=== PATIENT | male | born 1950 | race Caucasian/White ===

== ENCOUNTER 2017-04-06 12:57 | Observation (INO) | payer BC, MEDICARE, OTHER ==
[2017-04-06 13:36] LABS: ABS Basophils 0 10^3/ul (0-0.2); ABS Eosinophils 0.3 10^3/ul (0-0.6); ABS Lymphocytes 1.7 10^3/ul (1.0-4.8); ABS Monocytes 0.5 10^3/ul (0-0.8); ABS Neutrophils 4.5 10^3/ul (1.5-7.7); ABS Nucleated RBC 0 10^3/ul; Eosinophil % 4.7 % (0-6); Hematocrit 44 % (42-52); Hemoglobin 14.8 g/dl (14.0-18.0); Lymphocyte % 23.9 % (25-47); Mean Corpuscular HGB Conc 34 g/dl (31-36); Mean Corpuscular Hemoglobin 33 pg (27-31); Mean Corpuscular Volume 98 fL (80-94); Mean Platelet Volume 8 um3 (7.4-10.4); Nucleated Red Blood Cells % 0; Platelet Count 200 10^3/ul (150-450); Red Blood Count 4.46 10^6/ul (4.0-5.4); Red Cell Distribution Width 14 % (10.5-15); White Blood Count 7.1 10^3/ul (3.5-10.8)
[2017-04-06 13:50] LABS: EGFR Non-African American 60.8 (>60)
--- NOTE | 2017-04-06 17:28 | RAD ---
INDICATION: Short of breath COMPARISON: March 22, 2015 TECHNIQUE: PA and lateral dual-energy views were obtained. FINDINGS: Bones/Soft Tissues: There are no acute bony findings. Cardiomediastinal: The cardiomediastinal silhouette is normal. Lungs: There are no infiltrates. Pleura: There are no pleural effusions. Other: None IMPRESSION: NO ACTIVE DISEASE.
[2017-04-06] MEDS ORDERED: Aspirin Low Dose CHEW TAB* 81 MG PO ONE (17:39)
[2017-04-06] MEDS ORDERED: Ondansetron INJ* 2 MG/ML VIAL IV PRN (18:04)
[2017-04-06] MEDS ORDERED: Acetaminophen TAB* 325 MG PO PRN (18:04)
[2017-04-06] MEDS ORDERED: Albuterol 2.5 MG/3 ML NEB.SOL* (0.083%) INH PRN (18:04)
[2017-04-06] MEDS ORDERED: Albuterol HFA INHALER* 8 gm MDI INH PRN (18:07)
[2017-04-06] MEDS ORDERED: Fluticasone NASAL SPRAY 50MCG* 16 gm SPRAY BTL BOTH NARES PRN (18:09)
[2017-04-06] MEDS ORDERED: LORazepam TAB(*) 1 MG PO SCH (19:00)
--- NOTE | 2017-04-06 21:53 | ED ---
Demarcus Juarez Tiffany, scribed for Sintia Felix MD on 04/06/17 at 1650 . HPI Chest Pain - HPI Summary HPI Summary: The patient is a 66 year old M presenting to [facility] with a chief complaint of intermittent chest pain since 09:00 today. Describes pain as sharp and located in the left chest. Rates the pain 1/10 in severity. Symptoms aggravated by nothing. Symptoms alleviated by rest. Patient reports shortness of breath. The chest pain began last night. Described pain as pressure and located in the right chest. Patient felt chest pain again this morning after waking up. Spencer anxious throughout the day, like he was in a hurry and he was worried about being late to his physical therapy appointment. PT advised patient to see Dr. Gerber, patients restaurant expeditor, who was not working today. Patient presented to ED instead. The patient has had sinus infection/upper respiratory for past six weeks. History of upper respiratory infections. Has had sinus surgery. - History of Current Complaint Chief Complaint: EDChestPainROMI Time Seen by Provider: 04/06/17 14:41 Hx Obtained From: Patient Onset/Duration: Started Days Ago - Last night, Still Present, Worse Since - This morning Current Severity: Mild Pain Intensity: 1 Pain Scale Used: 0-10 Numeric Chest Pain Location: Upper Sternal, Lower Sternal Character: Pressure/Squeezing, Sharp/Stabbing Aggravating Factor(s): Nothing Alleviating Factor(s): Rest Associated Signs and Symptoms: Positive: Shortness of Breath - Allergy/Home Medications Allergies/Adverse Reactions: Allergies Allergy/AdvReac Type Severity Reaction Status Date / Time clarithromycin Allergy Difficulty Verified 04/06/17 14:34 Breathing metronidazole Allergy Unknown Verified 04/06/17 14:34 Reaction Details moxifloxacin [From Avelox] Allergy Agitation Verified 04/06/17 14:34 piperacillin [From Zosyn] Allergy Rash Verified 04/06/17 14:34 Quinolones Allergy Joint Pain Verified 04/06/17 14:34 tazobactam [From Zosyn] Allergy Rash Verified 04/06/17 14:34 tetracycline Allergy See Comment Verified 04/06/17 14:34 vancomycin Allergy Unknown Verified 04/06/17 14:34 Reaction Details eggplant Allergy See Comment Uncoded 05/20/16 13:00 Home Medications: Home Medications Albuterol HFA INHALER* [Ventolin HFA Inhaler*] 1 - 2 puff INH Q6H PRN 04/06/17 [ History Confirmed 04/06/17] Calcium Carb/D3/Magnesium/Zinc [Vito Mag Zinc + D3 Tablet] 1 tab PO DAILY [History Confirmed 04/06/17] Fluticasone/Vilanterol MDI(NF) [Breo Ellipta MDI (NF)] 1 puff INH DAILY [History Confirmed 04/06/17] Ibuprofen TAB* [Motrin TAB* 400 MG] 400 mg PO Q8H PRN 04/06/17 [History Confirmed 04/06/17] Lisinopril TAB* [Prinivil TAB*] 20 mg PO DAILY 04/06/17 [History Confirmed 04/06] Melatonin/Pyridoxine HCl (B6) [Melatonin] 1 tab PO BEDTIME 04/06/17 [History Confirmed 04/06/17] PMH/Surg Hx/FS Hx/Imm Hx Previously Healthy: No Endocrine/Hematology History: Reports: Other Endocrine/Hematological Disorders - HLAB 27 Denies: Hx Diabetes Cardiovascular History: Reports: Hx Hypercholesterolemia, Hx Hypertension - TREATED WITH LISINOPRIL, Other Cardiovascular Problems/Disorders - arrythmia, seeing Dr. Gerber Denies: Hx Pacemaker/ICD Respiratory History: Reports: Hx Asthma, Hx Chronic Obstructive Pulmonary Disease (COPD), Other Respiratory Problems/Disorders - COPD GI History: Reports: Hx Gastroesophageal Reflux Disease, Hx Hiatal Hernia History: Denies: Hx Renal Disease Musculoskeletal History: Reports: Hx Arthritis, Hx Back Problems, Other Musculoskeletal History - Ankylosing spondylitis Denies: Hx Osteoporosis Sensory History: Reports: Hx Contacts or Glasses Denies: Hx Hearing Aid Opthamlomology History: Reports: Hx Contacts or Glasses Psychiatric History: Denies: Hx Panic Disorder - Surgical History Surgery Procedure, Year, and Place: Inguinal hernia repair x3 (1968 & 1986 - DOUBLE HERNIA); discectomy L5-S1 ( 1987); ulnar nerve relocation; sinus surgery ( 2003 & 2006-11/2014) Infectious Disease History: No Infectious Disease History: Reports: History Other Infectious Disease - c- diff Denies: Traveled Outside the [place] in Last 30 Days - Family History Known Family History: Positive: Other - Grandmother had stroke; father had angina; cancer - Social History Alcohol Use: Daily Alcohol Amount: vodka tonics 6-8 drinks a night starts around 6 pm til 11 pm Hx Substance Use: Yes Substance Use Type: Reports: Prescribed Hx Tobacco Use: Yes Smoking Status (MU): Former Smoker - Quit in 1985 Type: Cigarettes Have You Smoked in the Last Year: No Review of Systems Positive: Chest Pain - Left sharp, right pressure Positive: Shortness Of Breath All Other Systems Reviewed And Are Negative: Yes Physical Exam - Summary Physical Exam Summary: Appearance: Ill-appearing, moderate pain distress, Well-nourished Skin: Warm, color reflects adequate perfusion Head: Normal Head/Face inspection Eyes: Conjunctiva clear ENT: Normal inspection Neck: Supple, no nodes, no JVD. Respiratory: Lungs clear, Normal breath sounds, no respiratory distress Cardio: RRR, No murmur, pulses normal, brisk capillary refill Abdomen: soft, nontender Bowel sounds: present Musculoskeletal: Strength Intact/ ROM intact. No calf tenderness. No edema. Neuro: Alert, muscle tone normal, facial symmetry, speech normal, sensory/motor intact Psychological: Normal Triage Information Reviewed: Yes Vital Signs On Initial Exam: Initial Vitals Temp Pulse Resp BP Pulse Ox 96.8 F 72 16 148/89 98 04/06/17 12:58 04/06/17 12:58 04/06/17 12:58 04/06/17 12:58 04/06/17 12:58 Vital Signs Reviewed: Yes Diagnostics - Vital Signs Vital Signs Temp Pulse Resp BP Pulse Ox 04/06/17 15:30 74 151/70 98 04/06/17 15:08 175/81 04/06/17 15:02 44 99 04/06/17 15:00 42 179/108 99 04/06/17 14:30 38 132/58 96 04/06/17 14:05 76 18 99 04/06/17 14:04 160/80 04/06/17 12:58 96.8 F 72 16 148/89 98 - Laboratory Lab Results: Lab Results 04/06/17 04/06/17 04/06/17 Range/Units 13:25 13:25 13:25 WBC 7.1 (3.5-10.8) 10^3/ul RBC 4.46 (4.0-5.4) 10^6/ul Hgb 14.8 (14.0-18.0) g/dl Hct 44 (42-52) % MCV 98 H (80-94) fL MCH 33 H (27-31) pg MCHC 34 (31-36) g/dl RDW 14 (10.5-15) % Plt Count 200 (150-450) 10^3/ul MPV 8 (7.4-10.4) um3 Neut % (Auto) 64.2 (38-83) % Lymph % (Auto) 23.9 L (25-47) % [place] % (Auto) 6.5 (1-9) % Eos % (Auto) 4.7 (0-6) % Baso % (Auto) 0.7 (0-2) % Absolute Neuts (auto) 4.5 (1.5-7.7) 10^3/ul Absolute Lymphs (auto) 1.7 (1.0-4.8) 10^3/ul Absolute Monos (auto) 0.5 (0-0.8) 10^3/ul Absolute Eos (auto) 0.3 (0-0.6) 10^3/ul Absolute Basos (auto) 0 (0-0.2) 10^3/ul Absolute Nucleated RBC 0 10^3/ul Nucleated RBC % 0 Sodium 136 (133-145) mmol/L Potassium 4.4 (3.5-5.0) mmol/L Chloride 100 L (101-111) mmol/L Carbon Dioxide 29 (22-32) mmol/L Anion Gap 7 (2-11) mmol/L BUN 18 (6-24) mg/dL Creatinine 1.19 H (0.67-1.17) mg/dL Est GFR ( Amer) 78.2 (>60) Est GFR (Non-Af Amer) 60.8 (>60) BUN/Creatinine Ratio 15.1 (8-20) Glucose 107 H (70-100) mg/dL Lactic Acid 1.1 (0.5-2.0) mmol/L Calcium 9.7 (8.6-10.3) mg/dL Total Bilirubin 0.60 (0.2-1.0) mg/dL AST 24 (13-39) U/L ALT 27 (7-52) U/L Alkaline Phosphatase 38 (34-104) U/L Troponin I 0.00 (<0.04) ng/mL Total Protein 7.3 (6.4-8.9) g/dL Albumin 4.4 (3.2-5.2) g/dL Globulin 2.9 (2-4) g/dL Albumin/Globulin Ratio 1.5 (1-3) 04/06/17 Range/Units 15:32 WBC (3.5-10.8) 10^3/ul RBC (4.0-5.4) 10^6/ul Hgb (14.0-18.0) g/dl Hct (42-52) % MCV (80-94) fL MCH (27-31) pg MCHC (31-36) g/dl RDW (10.5-15) % Plt Count (150-450) 10^3/ul MPV (7.4-10.4) um3 Neut % (Auto) (38-83) % Lymph % (Auto) (25-47) % [place] % (Auto) (1-9) % Eos % (Auto) (0-6) % Baso % (Auto) (0-2) % Absolute Neuts (auto) (1.5-7.7) 10^3/ul Absolute Lymphs (auto) (1.0-4.8) 10^3/ul Absolute Monos (auto) (0-0.8) 10^3/ul Absolute Eos (auto) (0-0.6) 10^3/ul Absolute Basos (auto) (0-0.2) 10^3/ul Absolute Nucleated RBC 10^3/ul Nucleated RBC % Sodium (133-145) mmol/L Potassium (3.5-5.0) mmol/L Chloride (101-111) mmol/L Carbon Dioxide (22-32) mmol/L Anion Gap (2-11) mmol/L BUN (6-24) mg/dL Creatinine (0.67-1.17) mg/dL Est GFR ( Amer) (>60) Est GFR (Non-Af Amer) (>60) BUN/Creatinine Ratio (8-20) Glucose (70-100) mg/dL Lactic Acid (0.5-2.0) mmol/L Calcium (8.6-10.3) mg/dL Total Bilirubin (0.2-1.0) mg/dL AST (13-39) U/L ALT (7-52) U/L Alkaline Phosphatase (34-104) U/L Troponin I 0.00 (<0.04) ng/mL Total Protein (6.4-8.9) g/dL Albumin (3.2-5.2) g/dL Globulin (2-4) g/dL Albumin/Globulin Ratio (1-3) Result Diagrams: 04/06/17 13:25 04/06/17 13:25 Lab Statement: Any lab studies that have been ordered have been reviewed, and results considered in the medical decision making process. - Radiology CXR Radiology Interpretation Completed By: Radiologist - NO ACTIVE DISEASE. ED physician has reviewed this radiology report. - EKG 13:01 Cardiac Rate: NL - 77 BPM EKG Rhythm: Sinus Rhythm ST Segment: Non-Specific Ectopy: PVCs - Multiple, trigeminy EKG Interpretation: nml AVIVCT, nml QTc, and nml axis. EKG Comparison: Other - No significant change expect ectopy from 06/20/08. Chest Pain Course/Dx - Provider Notifications Discussed Care Of Patient With: Ambrose Benton Time Discussed With Above Provider: 16:59 Instructed by Provider To: Other - Discussed patient care with Dr. Benton ( cardiology) at 16:[address] Donahue (hospitalist) agreed to admit patient at 17:09. Discharge - Discharge Plan The documentation as recorded by the Demarcus elder Tiffany accurately reflects the service I personally performed and the decisions made by , Sintia Felix MD.
[2017-04-06] MEDS ORDERED: PRAVASTATIN 40 MG PO SCH (22:00)
[2017-04-06] MEDS ORDERED: CMCS Melatonin (NF) 3 MG TAB PO PRN (22:13)
[2017-04-06] MEDS: Heparin VIAL(*) 5000 UNITS/ML VIAL (FIVE THOUSAND) SUBCUT SCH (22:50)
--- NOTE | 2017-04-06 23:16 | HP ---
CC: Dr. Carolyn Hare * HISTORY AND PHYSICAL: DATE OF ADMISSION: 04/06/17 PRIMARY CARE PROVIDER: Dr. Carolyn Hare. ATTENDING PHYSICIAN WHILE IN THE HOSPITAL: Carmen Botello DO * (report dictated by Damon Stone NP). CHIEF COMPLAINT: Chest pain. HISTORY OF PRESENT ILLNESS: Mr. Jones is a 66-year-old male patient. He has a history of COPD, hypertension, hyperlipidemia, has a history of ADRI, also caries a history of ankylosing spondylitis and a history of basal cell cancer. He comes to the ED today saying yesterday he was on his way down to [place]. He was rushing around to get into the car back and he started noticing when he sat down in the car, he was having chest discomfort, pressure in the center of his chest that did radiate down his arm with no associated diaphoresis or nausea. He did feel short of breath with it. He said he is getting over a cold of late. He says he has had multiple sinus infections in the past. He said he did have something recently about a week ago, but it is now subsiding. He denies any recent fever, chills or cough. He was concerned because of the chest pain. By the time he got to [place] and half way to the trip, it was starting to subside and went away by the time he arrived to his destination. He woke up this morning and again he described this episode where he was on his way to physical therapy around 11:30 and he started having chest discomfort again in his car. He went to his appointment. They evaluated him there. He actually went to his MD's office, but his MD was not available. The nursing staff there was concerned and suggested he go to the ER to be evaluated. He came here. This discomfort has now subsided, but his each that he has had lasted about 30 minutes. He said that the discomfort today again went down his arm and into his jaw. It was not getting any better. It was the second time that it had happened. He denied having any fevers or chills. No nausea, vomiting, no abdominal pain. The patient was stating that this was again concerning. He was evaluated here in the ED. Because of his medical risk factors and former history of smoking and history of hypertension, hyperlipidemia and it was also noted that he did have bigemini. In addition to this, does drink about 5 to 6 mixed drinks at night. We were asked to evaluate for admission. PAST MEDICAL HISTORY: Significant for: 1. COPD. 2. Hypertension. 3. Hyperlipidemia. 4. ADRI. 5. Ankylosing spondylitis. 6. History of basal cell cancer. PAST SURGICAL HISTORY: 1. He has had L5-S1 diskectomy. 2. He has had a history of sinus surgery. 3. He has had an inguinal hernia repair. 4. He has had an ulnar nerve decompression. HOME MEDICATIONS: Include: 1. Breo 1 puff inhaled daily. 2. Ventolin 1 to 2 puffs inhaled every 6 hours as needed. 3. Calcium carbonate with D3 and magnesium and zinc 1 tablet p.o. daily. 4. Ibuprofen 400 mg every 8 hours as needed. 5. Diltiazem 120 mg p.o. daily. 6. Pravachol 40 mg daily. 7. Prilosec 20 mg daily. 8. [place] 3 fatty acids 1 capsule p.o. daily. 9. Lisinopril 20 mg daily. ALLERGIES TO MEDICATION: Include CLARITHROMYCIN, METRONIDAZOLE, AVELOX, ZOSYN, QUINOLONES, TETRACYCLINE, VANCOMYCIN, EGG PLANT. FAMILY HISTORY: Mother was borderline diabetic. Father had a history of angina and at 64. SOCIAL HISTORY: He is a drinker. He drinks 5 to 6 mixed drinks a night. He is a former smoker and quit in 1985. Surrogate decision maker is none appointed at this point. He needs to think about it. REVIEW OF SYSTEMS: There is no documented fever. He denied having any significant weight change. There was no ear discharge. There is no rhinorrhea. No sore throat. No thyroid enlargement. He denied having any chest pain currently. There was some per my HPI. He denies any orthopnea. No nocturnal dyspnea. He denied having any abdominal pain. No nausea, no vomiting , no dysuria. No frequency. No seizure. Review of 14 systems completed, all others negative. PHYSICAL EXAMINATION GENERAL: At this time, Mr. Jones is a 66-year-old male patient. He is sitting in the ED stretcher. He does not appear to be in any acute distress. VITAL SIGNS: Blood pressure 119/60 with a pulse of 80, respirations were 18, O2 sat 99%, temperature 96.8. HEENT: Head: Atraumatic, normocephalic. Eyes: EOMs are intact. Sclerae are anicteric and not pale. Throat: Oral mucosa appears to be moist. No oropharyngeal erythema. NECK: Supple. LUNGS: Clear to auscultation bilaterally. No wheezes, rales, or rhonchi. HEART: Sounds S1, S2. Regular rate and rhythm. No murmurs, rubs, or gallops. ABDOMEN: Soft, flat, nontender. Bowel sounds were present. EXTREMITIES: Pulses were 2+ throughout. He is moving all 4 extremities with 5/ 5 strength. NEUROLOGIC: He is awake, alert, oriented x3. Tongue midline. Sales Receptionist are equal. No gross focal deficits. SKIN: Intact. DIAGNOSTIC STUDIES/LAB DATA: WBC of 7.1, RBC of 4.46, hemoglobin 14.8, hematocrit of 44, platelet count of 200,000. D-dimer less than 200. Sodium was 136, potassium of 4.4, chloride 100. Bicarb 29, BUN 18, creatinine of 1.19 , glucose of 107, lactic 1.1, calcium 9.7. Total bili 0.6, AST 24, ALT 27, alk phos 38. Troponin 0. Repeat troponin was 0. Albumin of 4.4. He did have a chest x-ray obtained today, showed no active disease. There was an EKG. EKG showed a sinus rhythm with PVCs. He was in trigemini at this point. He had no ST elevations or T wave inversions. Reviewed to his previous EKG, QRS were similar, but the PVCs are now new. No significant changes except the PVCs. Old medical records were reviewed. ASSESSMENT AND PLAN: Mr. Jones is a 66-year-old male patient coming into the ED today with complaints of chest discomfort intermittently in the last 2 days. We were asked to evaluate for admission. He will be admitted under observation status for: 1. Chest pain. Again, he does have a history of hypertension and hyperlipidemia. He is a former smoker. He certainly does have risk for coronary artery disease. The plan will be to go ahead and cycle his troponin, at least get 1 more set of enzymes. The first 2 have been negative. The plan would be to go ahead and get an EKG, lipid panel in the morning, in addition to this get a stress test tomorrow morning and we will continue a baby aspirin for the time being. He is currently free of symptoms at this point and we will continue to follow. 2. Obstructive sleep apnea. I did order a CPAP for here. 3. Chronic obstructive pulmonary disease. We will continue his Breo. In addition to this, we will also go ahead and continue p.r.n. nebs. 4. Hypertension. Continue meds as prescribed. 5. Hyperlipidemia. Continue statin therapy. 6. History of ankylosing spondylitis. He can follow with his primary at this point. At this point, we will continue to monitor. 7. Basal cell carcinoma. Follow with his primary. 8. DVT prophylaxis. He will be placed on heparin subcu. 9. Code status. Full code. 10. Fluids, electrolytes, and nutrition. He will be placed on a heart healthy diet. TIME SPENT: Time spent on the admission was approximately, greater than half the time was spent [id number] with the patient obtaining my history and physical; other half time was spent going over the plan of care with the patient and implementing plan of care. I did discuss the plan of care with my attending, Dr. Botello; she is in agreement. DAMON STONE, KURT [id number]/[facility] #: [id number] PATY
[2017-04-07] MEDS: Heparin VIAL(*) 5000 UNITS/ML VIAL (FIVE THOUSAND) SUBCUT SCH ×2 (04:59→15:19)
[2017-04-07] MEDS ORDERED: Thiamine TAB* 100 MG TAB PO SCH (09:00)
[2017-04-07] MEDS ORDERED: Folic Acid TAB* 1 MG PO SCH (09:00)
[2017-04-07] MEDS ORDERED: FLUTICASONE INH SCH (09:00)
[2017-04-07] MEDS ORDERED: Lisinopril TAB* 10 MG PO SCH (09:00)
[2017-04-07] MEDS ORDERED: Omeprazole CAP* 20 MG PO SCH (09:00)
[2017-04-07] MEDS ORDERED: VILANTEROL MDI INH SCH (09:00)
[2017-04-07] MEDS ORDERED: Multivitamins/Minerals TAB PO SCH (09:00)
[2017-04-07] MEDS ORDERED: Aspirin Low Dose CHEW TAB* 81 MG PO SCH (09:00)
[2017-04-07] MEDS ORDERED: Diltiazem CD CAP* 120 MG PO SCH (09:00)
[2017-04-07] MEDS ORDERED: Regadenoson* 0.4 MG/5 ML SYRINGE ONE (14:40)
[2017-04-07 14:53] VITALS: BP 112/52
--- NOTE | 2017-04-07 15:08 | RAD ---
Edited for charges. Indication: Chest pain. Myocardial perfusion scan was performed utilizing 1 day protocol. Rest myocardial perfusion was performed after intravenous injection of 10.9 mCi of technetium 99 and tetrofosmin. Pharmacological stress was applied and 25.3 mCi of technetium 99m tetrofosmin was injected for the stress portion of the study. There is homogeneous distribution of the radiotracer throughout the left ventricle. There is no evidence of any fixed or reversible perfusion defect is noted. There is some photopenia in the inferior wall which appears to correct on attenuation correction images. The ejection fraction at stress is 50%. Evaluation of wall motion demonstrates no focal wall motion abnormality. IMPRESSION: No definite reversible perfusion defect is identified. Normal ejection fraction. ASSESSMENT: Low risk Based on imaging criteria from ACC/AHA 2002 Guideline Update for the Management of Patients With Chronic Stable Angina Table 23. Noninvasive Risk Stratification. Reference. MTDD
--- NOTE | 2017-04-08 11:44 | DS ---
CC: Dr. Carolyn Hare * DISCHARGE SUMMARY: DATE OF ADMISSION: 04/06/17 DATE OF DISCHARGE: 04/07/17 HISTORY OF PRESENT ILLNESS/HOSPITAL COURSE: This 66-year-old man presented with chest pain. He basically had it not with exertion. It is difficult to say that he was not under psychological stress as he seems to have frequent episodes of anxiety. He also has lot of pain from joint disease and ankylosing spondylitis. The rest of the history is detailed in the admission note. The patient was admitted to the telemetry unit. His CPAP was to be continued in the hospital. He underwent a nuclear stress test on the day of discharge. He had 3 troponin levels, all of which were within normal limits. The nuclear stress test showed no reversible perfusion defect. There was a normal ejection fraction. The patient was very relieved to hear these findings. I have made no changes in his outpatient medications. FINAL DIAGNOSES: 1. Atypical chest pain. 2. Obstructive sleep apnea. 3. Chronic obstructive pulmonary disease. 4. Hypertension. 5. Hyperlipidemia. 6. Ankylosing spondylitis. DISCHARGE MEDICATIONS: 1. Pravastatin 40 mg daily. 2. Omeprazole 20 mg daily. 3. [place]-3 fatty acids as prescribed. 4. Diltiazem CD 120 mg daily. 5. Fluticasone/vilanterol 100/25 mg one puff daily. 6. Albuterol inhaler one puff every 6 hours p.r.n. 7. Calcium, magnesium zinc with D3 one tablet daily. 8. Ibuprofen 400 mg every 8 hours p.r.n. 9. Lisinopril 20 mg daily. 10. Melatonin/pyridoxine as prescribed. [id number]/[facility] #: [id number] [facility]
== END 2017-04-07 16:30 | disposition home or self-care (01) ==
LOC: ED 12:57 → MEDTELE 18:01
PROVIDERS: ADMIT Internal Medicine; ATTEND Internal Medicine
DX: R07.89 Other chest pain (principal); G47.33 Obstructive sleep apnea (adult) (pediatric); J44.9 Chronic obstructive pulmonary disease, unspecified; I10 Essential (primary) hypertension; E78.5 Hyperlipidemia, unspecified; M45.9 Ankylosing spondylitis of unspecified sites in spine; Z79.899 Other long term (current) drug therapy; Z88.0 Allergy status to penicillin; Z88.1 Allergy status to other antibiotic agents; Z88.8 Allergy status to other drugs, medicaments and biological substances; Z87.891 Personal history of nicotine dependence; Z85.828 Personal history of other malignant neoplasm of skin; R94.31 Abnormal electrocardiogram [ECG] [EKG]; R00.8 Other abnormalities of heart beat
CPT/HCPCS: 36415; 71046; 78452; 80053; 80061; 83036; 83605; 83735; 84443; 84484; 85025; 85379; 93005; 93017; 96372; 99284; A9270-GY; A9502; G0378; J1644; J2785

== ENCOUNTER 2018-04-15 18:39 | Observation (INO) | payer BC, MEDICARE ==
--- NOTE | 2018-04-15 19:12 | ED ---
HPI Chest Pain - HPI Summary HPI Summary: Pt is a 67 y/o male who presents to the ED c/o CP. 2 weeks ago he had his first episode of chest pressure, which begins with pain in the back of his legs while walking followed by the CP. He has since had 2 other episodes. Today at 18:00 he again began to have the CP, rated a 3/10 in severity. The CP began as left anterior, however now is mid-sternal and non-radiating. Pt also c/o diaphoresis , intermittent paresthesia of his arms, and intermittent left upper back pain. 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 He is also scheduled to have a cardiac stress test on 04/21/18. Pt denies any fever, chills, erythema of eyes, sore throat, SOB, cough, abdominal pain, N/V, dysuria, hematuria, edema, rash, or dizziness. Pt is a former smoker. PMHx HTN, HLD. FHx arrhythmia. He denies taking ASA. Pt had a cold recently, so he thought the CP was due to a cough. Pt also notes that drinks about 6 drinks of vodka daily, however stopped drinking alcohol 3 weeks ago. As per , she believes that this is due to anxiety. He had a similar episode of CP last year, during which his PVCs were diagnosed. 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 - Onset/Duration: Started Weeks Ago - 2, Worse Since Timing: Intermittent Current Severity: Mild Pain Intensity: 3 Pain Scale Used: 0-10 Numeric Chest Pain Location: Mid Sternal, Left Anterior Chest Pain Radiates: No Character: Pressure/Squeezing Aggravating Factor(s): Movement Alleviating Factor(s): Nothing Associated Signs and Symptoms: Positive: Chest Pain, Diaphoresis - Allergy/Home Medications Allergies/Adverse Reactions: Allergies Allergy/AdvReac Type Severity Reaction Status Date / Time clarithromycin Allergy Difficulty Verified 04/06/17 14:34 Breathing metronidazole Allergy Unknown Verified 04/06/17 14:34 Reaction Details moxifloxacin [From Avelox] Allergy Agitation Verified 04/06/17 14:34 piperacillin [From Zosyn] Allergy Rash Verified 04/06/17 14:34 Quinolones Allergy Joint Pain Verified 04/06/17 14:34 tazobactam [From Zosyn] Allergy Rash Verified 04/06/17 14:34 tetracycline Allergy See Comment Verified 04/06/17 14:34 vancomycin Allergy Unknown Verified 04/06/17 14:34 Reaction Details eggplant Allergy See Comment Uncoded 05/20/16 13:00 Home Medications: Home Medications Cyanocobalamin TAB* [Vitamin B12 TAB*] 1 tab PO DAILY 04/15/18 [History Confirmed 04/15/18] Docusate CAP* [Colace Cap*] 300 mg PO DAILY 04/15/18 [History Confirmed 04/15/18 ] L.acidoph,Paracasei, B.lactis [Probiotic] 3 cap PO DAILY 04/15/18 [History Confirmed 04/15/18] PMH/Surg Hx/FS Hx/Imm Hx Endocrine/Hematology History: Reports: Other Endocrine/Hematological Disorders - HLAB 27 Denies: Hx Diabetes Cardiovascular History: Reports: Hx Angina, Hx Hypercholesterolemia, Hx Hypertension - TREATED WITH LISINOPRIL, Other Cardiovascular Problems/Disorders - arrythmia, seeing Dr. Gerber Denies: Hx Coronary Artery Disease, Hx Myocardial Infarction, Hx Pacemaker/ ICD, Hx Valvular Heart Disease Respiratory History: Reports: Hx Asthma, Hx Chronic Obstructive Pulmonary Disease (COPD), Hx Sleep Apnea GI History: Reports: Hx Gastroesophageal Reflux Disease, Hx Hiatal Hernia Comment Only: Other GI Disorders - Otero's esphoagus History: Denies: Hx Renal Disease Musculoskeletal History: Reports: Hx Arthritis, Hx Back Problems, Other Musculoskeletal History - Ankylosing spondylitis Denies: Hx Osteoporosis Sensory History: Reports: Hx Contacts or Glasses Denies: Hx Hearing Aid Opthamlomology History: Reports: Hx Contacts or Glasses Psychiatric History: Reports: Hx Depression Denies: Hx Panic Disorder - Cancer History Cancer Type, Location and Year: Basel cell - Surgical History Surgery Procedure, Year, and Place: Inguinal hernia repair x3 (1968 & 1986 - DOUBLE HERNIA); discectomy L5-S1 ( 1987); ulnar nerve relocation; sinus surgery ( 2003 & 2006-11/2014) Infectious Disease History: No Infectious Disease History: Reports: Hx Clostridium Difficile, History Other Infectious Disease - c- diff Denies: Traveled Outside the [place] in Last 30 Days - Family History Known Family History: Positive: Cardiac Disease - arrhythmia, Other - Grandmother had stroke; father had angina; cancer Negative: Blood Disorder - blood clots, aneurysm - Social History Alcohol Use: Daily Alcohol Amount: vodka tonics 6-8 drinks a night starts around 6 pm til 11 pm Hx Substance Use: Yes Substance Use Type: Reports: Prescribed Hx Tobacco Use: Yes Smoking Status (MU): Former Smoker - Quit in 1985 Type: Cigarettes Have You Smoked in the Last Year: No Review of Systems Positive: Skin Diaphoresis. Negative: Fever, Chills Negative: Erythema Negative: Sore Throat Positive: Chest Pain - pressure Negative: Shortness Of Breath, Cough Negative: Abdominal Pain, Vomiting, Nausea Negative: dysuria, hematuria Positive: Myalgia - left upper back. Negative: Edema Negative: Rash Neurological: Other - NEGATIVE: dizziness Positive: Paresthesia - arms All Other Systems Reviewed And Are Negative: Yes Physical Exam - Summary Physical Exam Summary: Constitutional: Well-developed, Well-nourished, Alert. (-) Distressed Skin: Warm, Dry HENT: Normocephalic; Atraumatic Eyes: Conjunctiva normal Neck: Musculoskeletal ROM normal neck. (-) JVD, (-) Stridor, (-) Tracheal deviation Cardio: Rhythm regular, rate normal, Heart sounds normal; Intact distal pulses; The pedal pulses are 2+ and symmetric. Radial pulses are 2+ and symmetric. (-) Murmur Pulmonary/Chest wall: Effort normal. (-) Respiratory distress, (-) Wheezes, (-) Rales Abd: Soft, (-) epigastric tenderness, (-) Distension, (-) Guarding, (-) Rebound Musculoskeletal: (-) Edema Lymph: (-) Cervical adenopathy Neuro: Alert, Oriented x3 Psych: Mood and affect Normal Triage Information Reviewed: Yes Vital Signs On Initial Exam: Initial Vitals Temp Pulse Resp BP Pulse Ox 96.5 F 59 18 145/112 98 04/15/18 18:42 04/15/18 18:42 04/15/18 18:42 04/15/18 18:42 04/15/18 18:42 Vital Signs Reviewed: Yes Diagnostics - Vital Signs Vital Signs Temp Pulse Resp BP Pulse Ox 04/15/18 18:42 96.5 F 59 18 145/112 98 - Laboratory Result Diagrams: 04/15/18 19:25 04/15/18 19:25 Lab Statement: Any lab studies that have been ordered have been reviewed, and results considered in the medical decision making process. - Radiology CXR Radiology Interpretation Completed By: ED Physician Summary of Radiographic Findings: No acute disease. Pending official radiology report. - CT Chest/Abdomen/Pelvis CTA CT Interpretation Completed By: Radiologist Summary of CT Findings: No evidence of aortic dissection or pulmonary embolus. ED physician reviewed radiology report. - EKG 18:45 Cardiac Rate: NL - 68 bpm EKG Rhythm: Sinus Rhythm Ectopy: PVCs Summary of EKG Findings: No STEMI Chest Pain Course/Dx - Course Course Of Treatment: Pt is a 67 y/o male who presents to the ED c/o chest pressure and diaphoresis. PMHx HTN, HLD. A CXR was negative. An EKG revealed PVCs. A CTA revealed no evidence of aortic dissection or pulmonary embolus. Multiple cardiac risk factors with exertional symptoms. Pt has a thoracic spine mass which could produce some symptoms in his back. Will require a rule out and provocative testing in hospital. Pt will be admitted to Dr. Botello with final dx of exertional CP and claudication. He is agreeable with this plan. - Diagnoses Provider Diagnoses: Exertional chest pain, Claudication - Provider Notifications Discussed Care Of Patient With: Carmen Botello Time Discussed With Above Provider: 21:45 Instructed by Provider To: Admit As Inpatient Discharge - Sign-Out/Discharge Documenting (check all that apply): Patient Departure - Admit Patient Received Moderate/Deep Sedation with Procedure: No - Discharge Plan Condition: Stable Disposition: ADMITTED TO [facility] Referrals: Carolyn Hare MD [Primary Care Provider] - - Billing Disposition and Condition Condition: STABLE Disposition: Admitted to [facility] - Attestation Statements Document Initiated by Scribe: Yes Documenting Scribe: Leticia Cline Provider For Whom Jazmin is Documenting (Include Credential): Eric Dominguez MD Scribe Attestation: Leticia Juarez, scribed for Eric Dominguez MD on 04/15/18 at 2141. Scribe Documentation Reviewed: Yes Provider Attestation: The documentation as recorded by the Leticia elder accurately reflects the service I personally performed and the decisions made by me, Eric Dominugez MD Status of Scribe Document: Viewed
--- OUTSIDE RECORDS SUMMARY | 2018-04-15 19:14 | XMS REPORT | Continuity of Care Document ---
:1950 External Reference #:[id number] Author Name ALEXANDRA Wyatt Address [address] [facility] [place] [address] Care Team Providers Name Role Phone Trisha Hare M.D. Care Team Information Underwriting Service Representative Unavailable Trisha Hare M.D. Primary Care Physician Unavailable Payers Date Identification Numbers Payment Provider Subscriber Effective: 2011 Policy Number: [id number] /BS Of [facility] Jil Jones Group Name: [facility] [address] [address] PayID: [id number] [place] [address] Effective: 2008 Policy Number: [id number] [place] PayID: [id number] [address] [place] [address] Effective: 2017 Policy Number: [id number] [facility] Antonio Jones PayID: [id number] [address] [place] [address] Advance Directives Description No Information Available Problems Date Description Provider Status Onset: 12/04/2010 Gastroesophageal reflux disease Paul Wen M.D. Active Onset: 12/04/2010 Essential hypertension Paul Wen M.D. Active Onset: 12/04/2010 Hyperlipidemia Paul Wen M.D. Active Onset: 01/03/2012 Chronic obstructive lung disease Silvestre Alvarenga M.D. Active Onset: 03/31/2013 Milka Wen M.D. Active Onset: 05/03/2014 Impaired fasting glycaemia Kareem Alamo M.D. Active Onset: 05/03/2014 Anxiety state Kareem Alamo M.D. Active Onset: 06/26/2015 Ankylosing spondylitis Trisha Hare M.D. Active Onset: 08/12/2016 Alcohol dependence Trisha Hare M.D. Active Onset: 10/29/2016 Obstructive sleep apnea syndrome Trisha Hare M.D. Active Onset: 12/17/2017 Degenerative joint disease Trisha Hare M.D. Active involving multiple joints Onset: 10/23/2011 Periapical abscess without sinus Paul Wen M.D. Resolved tract Resolved: 06/25/2015 Onset: 01/03/2012 Backache Silvestre Alvarenga M.D. Resolved Resolved: 06/25/2015 Onset: 01/14/2012 Acute maxillary sinusitis Paul Wen M.D. Resolved Resolved: 06/25/2015 Onset: 06/03/2012 Screening for malignant neoplasm of Paul Wen M.D. Resolved prostate Resolved: 06/25/2015 Onset: 06/26/2012 Diarrhea Silvestre Alvarenga M.D. Resolved Resolved: 06/25/2015 Onset: 05/03/2014 Liver function tests abnormal Kareem Alamo M.D. Resolved Resolved: 06/25/2015 Onset: 11/16/2014 Chronic sinusitis Kareem Alamo M.D. Resolved Resolved: 06/25/2015 Family History Date Family Member(s) Observation Comments Father Colon Cancer Father Age 63 Lung/Colon Cancer Mother due to Lung Cancer () Mother Adopted So No FM History Of Of Her Family, DM, Heart Disease, Lung Cancer Age 77 First Sister Multiple Medical Problems Second Sister Colon Cancer Paternal Grandfather Cancer Age 78 Paternal Grandmother [place] Age 82 Paternal Aunt Breast Cancer Social History Type Date Description Comments Sex Unknown Education Highest level of education completed is an associate degree Living Situation Lives with girlfriend, Diet Diet is healthy and well balanced skips meals Sleep Reports normal sleep activity Pets Household pets include 3 cats Occupation [employer] For 40 Years - Retired Now Employment Not currently working Tobacco Use Start: Unknown Smoker Of 1PPD X 20 QUIT IN 1985 , Years SMOKED CIGARS FOR SEVERAL YEARS AFTER THAT ETOH Use A Couple Of Vodka 4 drinks a night Tonics Nightly Tobacco Use Start: Unknown End: Patient is a former Unknown smoker Smoking Status Reviewed: 12/17/17 Patient is a former smoker Exercise Type/Frequency Exercises regularly as Current He Can - Limited By Tendinitis Allergies, Adverse Reactions, Alerts Date Description Reaction Status Severity Comments 01/19/2007 Tetracycline Active Sun Sensitivity 04/05/2008 Avelox mood swings Active 06/21/2008 Levaquin rages, mood swings Active 06/11/2010 Eggplant Active throat closes 06/03/2012 Zosyn Active rash 06/30/2012 Metronidazole itching Active 07/28/2012 Vancomycin itching Active 04/01/2018 Sulfasalazine Active 04/01/2018 Tamsulosin Active Medications Medication Date Status Form Strength Qnty SIG Indications Ordering Provider Albuterol 03/22 Active Nebulizer (2.5mg/3M 3boxe use in L) 0.083% s nebulizer [place], 1 [id number] M.D. prn Ventolin HFA 03/22 Active Aerosol 108(90Bas 16gm 2 puffs J44.9 e) every 4 [place], mcg/Act hours as M.D. needed Tylenol Extra 10/22 Active Tablets 500mg 90tab 1-2 tab by M25.521 Yancy Strength s mouth as Linda, needed COBBLER SOLE osteoarthr itis every 12 hours Lisinopril 08/12 Active Tablets 10mg 1 by mouth I10 Yancy every day Linda, COBBLER SOLE Docusate 08/12 Active Capsules 100mg 60cap 1 by mouth K59.00 Yancy Sodium s three a Linda, day as COBBLER SOLE needed constipati on Pravastatin 03/15 Active Tablets 40mg 90tab take one E78.5 Raad J. Sodium s tablet by Breiman, mouth M.D. every night at bedtime Omeprazole 12/[address] 20mg 30cap take one Raad J. /2010 s capsule by Breiman, mouth once M.D. daily Flonase Active Suspension 50mcg/Act 2 sprays Unknown Allergy Relief /0000 in each nostril daily Calcium/Magnes Active Tablets Vit D3 daily Unknown ium/Zinc/Vitam /0000 in D3 Breo Ellipta Active Aerosol 1 puff Unknown /0000 every day Vitamin B-12 Active Tablets 1500mcg 1 by mouth Unknown /0000 every day Vitamin D3 Active Tablets 1200Unit 1 by mouth Unknown /0000 every day Diltiazem HCL Active Caps ER 24HR 240mg 1 by mouth Unknown ER /0000 every day Prednisone 10/22 Hx Tablets 5mg 78tab 12 by M25.521 s mouth Linda, - today, COBBLER SOLE 11/12 decrease 2018 by 1 every day until gone Lorazepam 10/14 Hx Tablets 0.5mg 2tabs [address] 20 minutes Darlow, - before M.D. 10/15 appoint t Linzess 09/02 Hx Capsules 72mcg 1 po daily K59.00 Samples Linda, - COBBLER SOLE 11/12 Miralax 08/12 Hx Packet [id number] 24uni 17 grams K59. ts every day Linda, - with large COBBLER SOLE 08/12 water Glycerin Adult 08/12 Hx Suppository 2gm 30uni 1 per K59. ts rectum Linda, - every 12 COBBLER SOLE 11/12 hrs prn constipati on Rib Brace 08/12 Hx dispense M45.0 #1 rib [facility], - brace for COBBLER SOLE 11/11 pain Buspirone HCL 05/12 Hx Tablets 5mg 60tab 1 tab by F41.9 s mouth [place], - twice a M.D. 08/11 day needed Doxycycline 08/08 Hx Tablets 100mg 2tabs 2 by mouth Trisha cl /2016 by mouth Payam, - x1 M.D. 02/09 Doxycycline 08/04 Hx Capsules 100mg 2caps 2 po x 1 Chelita cl /2016 [facility], - Afnp-C 08/05 Doxycycline 05/24 Hx Tablets 100mg 2tabs 2 Pills Raad JZaida Monohydrate /2016 AT Once Princessimaynaelis, - M.D. 08/04 Albuterol 03/20 Hx Nebulizer (2.5mg/3M 3boxe use in L) 0.083% s nebulizer Payam, - 1 d2kippf M.D. 08/11 prn Doxycycline 08/28 Hx Tablets 100mg 2tabs 2 Pills Raad J. Monohydrate /2016 AT Once Breiman, - M.D. 02/11 Cardizem 06/25 Hx Tablets 30mg , - M.D. 06/25 Ventolin HFA 06/25 Hx Aerosol 108(90Bas 16gm 2 puffs J44.9 e) every , - mcg/Act hours as M.D. 02/11 Augmentin 06/25 Hx Tablets 500-125mg 14tab 1 tab by s mouth , - twice a M.D. 02/11 day 7days Cephalexin 02/07 Hx Tablets 500mg 20tab 1 by mouth L03.312 Kareem Alamo, s twice a M.D. - day for Medical Excuse 02/07 Hx Pt had M45.6 Kareem Alamo, severe M.D. - back and 06/25 ankle pain and could not fly on 01/31/15 Flomax 01/29 Hx Capsules 0.4mg 30cap take one Kareem Alamo s capsule by M.D. - mouth 08/12 night Prednisone 01/18 Hx Tablets 20mg 10tab 1 by mouth M45.6 Kareem Alamo s twice a M.D. - day for 5 Hydrocodone-Ac 01/18 Hx Tablets 5-325mg 60tab 1 every 6 M45.6 Trisha etamin s hours as , - needed M.D. 02/11 Valium 01/18 Hx Tablets 5mg 10tab 1-2 by F40.243 Kareem Alamo, s mouth M.D. - three 02/11 times day as needed Transderm-Scop 01/18 Hx Patches 72HR 1mg/3Days 5unit apply one F40.243 Kareem Alamo, s patch M.D. - every 02/11 as needed Valium 05/03 Hx Tablets 5mg 60tab 1 by mouth 300.00 Kareem Alamo s three M.D. - times a 11/16 day needed Cefdinir 02/02 Hx Capsules 300mg 20cap 1 by mouth Kareem Alamo, s twice a M.D. - day for 10 Prednisone 02/02 Hx Tablets 20mg 10tab 1 by mouth 724.5 Kareem Alamo s twice a M.D. - day for 5 Trazodone HCL 02/02 Hx Tablets 100mg 1 by mouth 780.52 Kareem Alamo every M.D. - night 11/16 Metaxalone 02/02 Hx Tablets 800mg 40tab 1 tid prn 724.5 Kareem Alamo s muscle M.D. - spasm. 06/25 Advair 250/50 12/08 Hx 250/50 60uni one Kareem Alamo ts inhalation M.D. - s twice a Advair Diskus 12/08 Hx Aerosol 250-50mcg 60uni inhale 1 Raad Jurado /Dose ts dose by Princessimayanelis, - mouth M.D. 02/09 twice a day Trazodone HCL 12/02 Hx Tablets 50mg 30tab 1 tablet 780.52 Corrina s at bedtime KURT José - as needed 02/02 for sleep Doxycycline 10/06 Hx Tablets 100mg 40tab 1 by mouth Kareem Alamo Monohydrate s twice a M.D. - day for 20 Hydroxyzine 10/06 Hx Tablets 25mg 40tab 1-2 tab by 708.9 Kareem Alamo HCL s mouth M.D. - three 12/02 times day as needed Triamcinolone 08/10 Hx Cream 0.1% 30uni apply to 692.9 Kareem Alamo Acetonide ts affected M.D. - area twice 02/11 a day as needed Doxycycline 07/[address] Part 100mg 2caps 2 po x 1 Kareem Alamo Hyclate dose M.D. - 08/10 Gabapentin 06/23 Hx Capsules 100mg 90cap take 1 356.8 . s capsule Rubi Wen - three 10/06 times day as needed Lorazepam 03/15 Hx Tablets 1mg 3tabs 1 tab po 300.00 Miller . prn Rubi Wen - anxiety 12/02 one hour /2013 prior to flight Proventil HFA 03/15 Hx Aerosol 108(90Bas 1unit 2 puffs q 496 Miller A. e) s 4 hours, Rubi Wen - mcg/Act generic ok 11/16 Cephalexin 01/24 Hx Capsules 500mg 20cap 1 by mouth 525.9 Kareem Alamo, s twice a M.D. - day for 10 Amoxicillin 01/24 Hx Tablets 875mg 20tab 1 by mouth 525.9 Kareem, s twice a M.D. - day for Voltaren 07/28 Hx Gel 1% 100gm apply to both knees Argenis, - tid COBBLER SOLE 10/06 Align 07/14 Hx Capsules 4mg 30cap 1 po qd s Argenis, - COBBLER SOLE 12/02 Vancomycin HCL 06/30 Hx Capsules 125mg 40cap 1 po qid x s 10d Argenis, - COBBLER SOLE 07/28 Flagyl 06/26 Hx Tablets 500mg 30tab 1 tid 787.91 Silvestre T. /2012 Drea Delgado M.D. 06/30 Montelukast 06/03 Hx Tablets 10mg 30tab 1 po qd 477.9 Miller A. Sodium s Rubi Wen - 06/26 Zosyn 04/23 Hx Solution Rec 3.375GR IV q 6hrs Miller A. x 10 days Rubi Wen - dx: 06/03 sinusitis PICC Line 04/23 Hx Order for Miller A. Placement Picc Line Rubi Wen - Placement 06/02 Flush with 100units/m l Heparin per Protocal Augmentin 01/19 Hx Tablets 875-125mg 10tab on tab po Miller A. s bid Rubi Wen - 04/23 Clindamycin 01/13 Hx Capsules 150mg 21cap one tab po 461.0 Miller A. HCL s tid for 7 Rubi Wen - days 04/23 Metaxalone 01/02 Hx Tablets 800mg 40tab 1 tid prn Silvestre T. s Drea Garcia M.D. 10/06 Ibuprofen 11/19 Hx Tablets 800mg 40tab 1 po q8 724.2 Miller A. s hours tid Rubi Wen - with food 06/26 for three days then prn Amoxicillin/Cl 10/22 Hx Tablets 500-125mg 10tab 1 po bid 522.5 Miller A. avulanate s Rubi Wen Potassium - 01/02 Naproxen 12/28 Hx Tablets 500mg 60tab 1 po bid 724.5 Paty s w/ food Drea Wing-C 10/22 Clindamycin 12/07 Hx Capsules 300mg 30cap 1 po tid x Paty s 10 days Drea Wing-C 12/28 Clindamycin 08/12 Hx Capsules 300mg 30cap one tab po Miller A. HCL s tid for Rubi Wen - ten days 12/04 Clindamycin 06/20 Hx Capsules 300mg 30cap one tab po Miller A. HCL s tid for Rubi Wen - ten days 07/25 Augmentin 06/03 Hx Tablets 500-125mg 20tab one tab po Miller A. s bid for Rubi Wen - ten days 06/20 Albuterol 06/03 Hx Nebulizer (2.5mg/3M 3boxe use in Miller A. L) 0.083% s nebulizer Rubi Wen - as 02/11 Ibuprofen 10/24 Hx Tablets 800mg 30tab 1 po q8 Yovana LZaida s hours tid Yu - with food Rubi 12/04 for three days then prn Indomethacin 09/20 Hx Capsules 20mg 2 PO [facility] 06/11 [facility] [place] Bactrim DS 09/20 Hx Tablets 800-160mg 20tab 1 po bid Silvestre TZaida Drea Delgado M.D. 10/24 Vicodin 06/27 Hx Tablets 5-500mg 30tab 1 po Miller . s every six Rubi Wen - hours prn. 10/22 Ibuprofen 04/05 Hx Tablets 800mg 40tab 1 po q8 724.2 Miller . s hours tid Rubi Wen - with food 06/21 for three days then prn Flexeril 04/05 Hx Tablets 10mg 30tab 1 po tid 724.2 Miller . s prn muscle Rubi Wen - spasm 06/21 Vicodin 04/05 Hx Tablets 5-500mg 50tab 1 to 2 po 724.2 Miller . s every six Rubi Wen - hours prn. 06/21 Ativan 04/05 Hx Tablets 1mg 4tabs one tablet 723.1 1.5 hours Rubi Wen - before 06/21 Fluticasone 01/19 Hx 50mcg 0unit 1-2 Sprays s Each Argenis, - Nostril COBBLER SOLE 05/08 prn /2008 Zegerid 01/19 Hx Powder 1100mg 1 PO Prior To Dinner Argenis, - COBBLER SOLE 06/11 Calcium+Vit.D 01/19 Hx 1200mg 1 po bid Argenis, - COBBLER SOLE 02/11 Magnesium 01/19 Hx Capsules 500mg 1 Argenis, - COBBLER SOLE 02/11 L-Lysine 01/19 Hx Adn L-Porline Argenis, - 500MG qd COBBLER SOLE 07/25 Celebrex 01/19 Hx Capsules 100mg 1 po qd prn Argenis, - COBBLER SOLE 06/27 Albuterol 01/19 Hx Inhaler Mdi Use as Stella Inhalation /2006 Directed Argenis, - COBBLER SOLE 12/04 Advair 250/50 00/00 Hx 250/50 60uni One Miller A. /0000 ts Inhalation Rubi Wen - s bid 03/30 Lisinopril Hx Tablets 20mg 90tab 1 by mouth I10 Yancy /0000 s every day Linda, - COBBLER SOLE 08/[address] 40mg 1 po qd Unknown /0000 - 12/04 Clindamycin Hx Capsules 300mg 30cap 1 po tid Unknown HCL /0000 s - 12/[address] 75mg 40tab 1 bid prn Unknown Sodium /0000 s w/ food - for pain 12/04 Metaxalone Hx Tablets 800mg 90tab take one Unknown /0000 s tablet by - mouth bid 12/04 prn /[address]x [address] 75mg 180ta 1 po bid Unknown Sodium DR /0000 bs - 01/02 Probiotic Hx Capsules 1 po qd Unknown /0000 - 07/14 Pravastatin Hx Tablets 20mg 90tab Take One Miller A. Sodium /0000 s Tablet By Rubi Wen - Mouth Once 03/15 /2013 Doxycycline Hx Capsules 100mg 30cap take one Unknown Hyclate /0000 s capsule by - mouth 06/14 twice a /2014 day Prednisone Hx Tablets 10mg 40mg for 1 Unknown (Parth) /0000 wk/30mg - for 1 wk/ 06/14 20mg for wk/10mg for 1 wk Gentamicin Hx Solution 0.9-0.9mg 50 ml Unknown Sulfate/0.9% /0000 /ML-% Sodium - Chloride 06/14 Gentamicin Hx Solution 0.8-0.9mg 50ml daily Unknown Sulfate/Sodium /0000 /ML-% Chloride - 11/16 Cardizem CD 00 Hx Caps ER 24HR 120mg 1 PO qd- Unknown /0000 Maghaydah - 02/11 Diltiazem CD 00 Hx Caps ER 24HR 120mg 1 by mouth Unknown /0000 every day - 08/12 Melatonin Hx Capsules 5mg 1 tab Unknown /0000 every day - at bedtime 08/11 Diltiazem CD 00 Hx Caps ER 24HR 240mg 1 by mouth Unknown /0000 every day - 11/12 Flomax Hx Capsules 0.4mg 1 by mouth Unknown /0000 every - day/report 04/01 intermitte nt use Immunizations CPT Code Status Date Vaccine Lot # [id number] Given 03/18/2018 Zoster (Shingles) Vaccine (HZV), Recombinant, [id number] Subunit, Adjuvanted 98853 Given 11/12/2017 Zoster (Shingles) Vaccine (HZV), Recombinant, [id number] Subunit, Adjuvanted 11929 Given 11/12/2017 High-Dose, Influenza Virus Vacccine-fluzone 65 [id number] and older 95448 Given 11/01/2016 High-Dose, Influenza Virus Vacccine-fluzone 65 [id number] and older 84116 Given 11/19/2015 High-Dose, Influenza Virus Vacccine-fluzone 65 [id number] and older 99849 Given 06/26/2015 Pneumococcal Conjugate Vacc-13 [id number] 97864 Given 11/11/2014 High-Dose, Influenza Virus Vacccine-fluzone 65 [id number] and older 28641 Given 11/19/2013 High-Dose, Influenza Virus Vacccine-fluzone 65 [id number] and older 60411 Given 12/09/2012 Pneumococcal Immunization [id number] 73932 Given 12/09/2012 DO Not Use Split Influenza Virus Vaccine [id number] 06719 Given 01/29/2012 Zostivax [id number] 66013 Given 01/29/2012 Zostivax [id number] Given 12/18/2011 Split Influenza Medicare: Fluzone 90176 Given 12/18/2011 DO Not Use Split Influenza Virus Vaccine [id number] 02312 Given 12/07/2010 DO Not Use Split Influenza Virus Vaccine [id number] 39331 Given 01/14/2010 Tdap Tetanus, W Pertussis [id number] 24904 Given 11/17/2009 DO Not Use Split Influenza Virus Vaccine [id number] 84702 Given 01/25/2009 H1N1 Virus Vaccine [id number] 99647 Given 01/25/2009 H1N1 Immunization Intramuscular/Intranasal W Counseling 43883 Given 01/16/2009 DO Not Use Split Influenza Virus Vaccine [id number] 80436 Given 12/23/2007 Pneumococcal Immunization [id number] 06989 Given 12/23/2007 DO Not Use Split Influenza Virus Vaccine [id number] 97428 Given 01/19/2007 DO Not Use Split Influenza Virus Vaccine [id number] Vital Signs Date Vital Result Comment 04/01/2018 3:06pm BP Systolic 120 mmHg BP Diastolic 70 mmHg Heart Rate 66 /min Body Temperature 97.2 F Respiratory Rate 20 /min Weight 200.50 lb 12/17/2017 11:42am BP Systolic 138 mmHg BP Diastolic 68 mmHg Heart Rate 68 /min Body Temperature 97.7 F Height 71.5 inches 5'11.50" Weight 197.00 lb BMI (Body Mass Index) 27.1 kg/m2 11/12/2017 10:26am BP Systolic 114 mmHg BP Diastolic 72 mmHg Heart Rate 66 /min Body Temperature 97.7 F Height 71.5 inches 5'11.50" Weight 183.00 lb BMI (Body Mass Index) 25.2 kg/m2 10/22/2017 2:19pm BP Systolic 120 mmHg BP Diastolic 72 mmHg Heart Rate 68 /min Body Temperature 98.2 F Respiratory Rate 16 /min Height 71.5 inches 5'11.50" Weight 182.00 lb BMI (Body Mass Index) 25.0 kg/m2 10/06/2017 6:06pm BP Systolic 122 mmHg BP Diastolic 64 mmHg Heart Rate 58 /min Body Temperature 97.6 F Respiratory Rate 16 /min Height 71.5 inches 5'11.50" Weight 184.00 lb BMI (Body Mass Index) 25.3 kg/m2 09/02/2017 10:50am BP Systolic 120 mmHg BP Diastolic 64 mmHg Heart Rate 66 /min Body Temperature 98.1 F Height 71.5 inches 5'11.50" Weight 188.00 lb BMI (Body Mass Index) 25.9 kg/m2 08/12/2017 4:10pm BP Systolic 110 mmHg BP Diastolic 52 mmHg Heart Rate 66 /min Body Temperature 97.5 F Height 71.5 inches 5'11.50" Weight 185.00 lb BMI (Body Mass Index) 25.4 kg/m2 06/24/2017 9:27am BP Systolic 122 mmHg BP Diastolic 70 mmHg Heart Rate 64 /min Body Temperature 97.9 F Height 71.5 inches 5'11.50" Weight 195.00 lb BMI (Body Mass Index) 26.8 kg/m2 05/18/2017 3:20pm BP Systolic 130 mmHg BP Diastolic 80 mmHg Heart Rate 72 /min Body Temperature 97.9 F Respiratory Rate 16 /min Height 71.5 inches 5'11.50" Weight 197.00 lb BMI (Body Mass Index) 27.1 kg/m2 05/12/2017 1:41pm BP Systolic 130 mmHg BP Diastolic 78 mmHg Heart Rate 76 /min Body Temperature 98.1 F Respiratory Rate 16 /min Height 71.5 inches 5'11.50" Weight 201.00 lb BMI (Body Mass Index) 27.6 kg/m2 02/10/2017 10:39am BP Systolic 110 mmHg BP Diastolic 70 mmHg Heart Rate 78 /min Body Temperature 98.1 F Respiratory Rate 16 /min Height 71.5 inches 5'11.50" Weight 197.00 lb BMI (Body Mass Index) 27.1 kg/m2 08/12/2016 9:29am BP Systolic 140 mmHg BP Diastolic 72 mmHg Heart Rate 64 /min Body Temperature 97.9 F Respiratory Rate 16 /min Height 71.5 inches 5'11.50" Weight 189.12 lb BMI (Body Mass Index) 26.0 kg/m2 02/12/2016 3:57pm BP Systolic 120 mmHg BP Diastolic 76 mmHg Heart Rate 60 /min Body Temperature 97.3 F Respiratory Rate 12 /min Height 68 inches 5'8" Weight 195.00 lb BMI (Body Mass Index) 29.6 kg/m2 12/03/2015 1:30pm BP Systolic 124 mmHg BP Diastolic 72 mmHg Heart Rate 72 /min Body Temperature 98.0 F Respiratory Rate 16 /min Height 68 inches 5'8" Weight 188.00 lb BMI (Body Mass Index) 28.6 kg/m2 08/29/2015 3:17pm BP Systolic 124 mmHg BP Diastolic 72 mmHg Heart Rate 76 /min Body Temperature 98.1 F Respiratory Rate 16 /min Height 68 inches 5'8" Weight 185.00 lb BMI (Body Mass Index) 28.1 kg/m2 06/26/2015 8:48am BP Systolic 120 mmHg BP Diastolic 88 mmHg Heart Rate 68 /min Body Temperature 98.1 F Respiratory Rate 18 /min Height 68 inches 5'8" Weight 198.00 lb BMI (Body Mass Index) 30.1 kg/m2 02/07/2015 1:50pm BP Systolic 128 mmHg BP Diastolic 70 mmHg Heart Rate 74 /min Body Temperature 97.9 F Respiratory Rate 16 /min Height 68 inches 5'8" Weight 187.00 lb BMI (Body Mass Index) 28.4 kg/m2 01/18/2015 2:05pm BP Systolic 122 mmHg BP Diastolic 74 mmHg Heart Rate 68 /min Body Temperature 97.2 F Respiratory Rate 18 /min Height 68 inches 5'8" Weight 189.00 lb BMI (Body Mass Index) 28.7 kg/m2 11/16/2014 10:48am BP Systolic 118 mmHg BP Diastolic 76 mmHg Heart Rate 76 /min Body Temperature 97.0 F Respiratory Rate 16 /min Height 68 inches 5'8" Weight 187.25 lb BMI (Body Mass Index) 28.5 kg/m2 06/14/2014 2:18pm BP Systolic 118 mmHg BP Diastolic 60 mmHg Heart Rate 56 /min Body Temperature 97.6 F Respiratory Rate 20 /min Height 68 inches 5'8" Weight 198.00 lb BMI (Body Mass Index) 30.1 kg/m2 05/03/2014 12:26pm BP Systolic 128 mmHg BP Diastolic 80 mmHg Heart Rate 68 /min Body Temperature 98.1 F Respiratory Rate 18 /min Height 68 inches 5'8" Weight 201.00 lb BMI (Body Mass Index) 30.6 kg/m2 02/02/2014 1:46pm BP Systolic 130 mmHg BP Diastolic 82 mmHg Heart Rate 66 /min Body Temperature 96.8 F Respiratory Rate 18 /min Height 68 inches 5'8" Weight 189.12 lb BMI (Body Mass Index) 28.8 kg/m2 12/02/2013 4:02pm BP Systolic 134 mmHg BP Diastolic 90 mmHg Heart Rate 68 /min Body Temperature 97.5 F Respiratory Rate 18 /min Height 68 inches 5'8" Weight 188.00 lb BMI (Body Mass Index) 28.6 kg/m2 10/06/2013 10:20am BP Systolic 138 mmHg BP Diastolic 92 mmHg Heart Rate 60 /min Body Temperature 97.6 F Respiratory Rate 16 /min Height 68 inches 5'8" Weight 186.00 lb BMI (Body Mass Index) 28.3 kg/m2 08/10/2013 3:56pm BP Systolic 118 mmHg BP Diastolic 70 mmHg Heart Rate 68 /min Body Temperature 97.3 F Respiratory Rate 18 /min Height 71.75 inches 5'11.75" Weight 185.00 lb BMI (Body Mass Index) 25.3 kg/m2 06/23/2013 2:10pm BP Systolic 112 mmHg BP Diastolic 84 mmHg Heart Rate 70 /min Body Temperature 97.5 F Height 71.75 inches 5'11.75" Weight 183.50 lb BMI (Body Mass Index) 25.1 kg/m2 03/31/2013 1:53pm BP Systolic 122 mmHg BP Diastolic 80 mmHg Heart Rate 84 /min Body Temperature 97.4 F Height 71.75 inches 5'11.75" Weight 188.38 lb BMI (Body Mass Index) 25.7 kg/m2 03/15/2013 3:54pm BP Systolic 110 mmHg BP Diastolic 74 mmHg Heart Rate 78 /min Body Temperature 98.0 F Respiratory Rate 18 /min Height 71.75 inches 5'11.75" Weight 190.00 lb BMI (Body Mass Index) 25.9 kg/m2 01/24/2013 9:04am BP Systolic 122 mmHg BP Diastolic 80 mmHg Heart Rate 80 /min Body Temperature 97.0 F Respiratory Rate 16 /min Height 71.75 inches 5'11.75" Weight 189.00 lb BMI (Body Mass Index) 25.8 kg/m2 07/28/2012 9:11am BP Systolic 100 mmHg BP Diastolic 70 mmHg Heart Rate 68 /min Body Temperature 98.4 F Respiratory Rate 18 /min Height 71.75 inches 5'11.75" Weight 181.00 lb BMI (Body Mass Index) 24.7 kg/m2 06/26/2012 9:18am BP Systolic 130 mmHg BP Diastolic 76 mmHg Heart Rate 70 /min Body Temperature 97.5 F Respiratory Rate 15 /min Height 71.75 inches 5'11.75" Weight 187.00 lb BMI (Body Mass Index) 25.5 kg/m2 06/03/2012 12:01pm BP Systolic 120 mmHg BP Diastolic 80 mmHg Heart Rate 66 /min Body Temperature 97.0 F Height 71.75 inches 5'11.75" Weight 180.25 lb BMI (Body Mass Index) 24.6 kg/m2 01/14/2012 1:45pm BP Systolic 120 mmHg BP Diastolic 68 mmHg Heart Rate 84 /min Body Temperature 95.5 F Height 72 inches 6'0" Weight 180.00 lb BMI (Body Mass Index) 24.4 kg/m2 01/03/2012 9:40am BP Systolic 138 mmHg BP Diastolic 80 mmHg Heart Rate 68 /min Body Temperature 97.2 F Height 72 inches 6'0" Weight 185.00 lb BMI (Body Mass Index) 25.1 kg/m2 10/23/2011 1:18pm BP Systolic 112 mmHg BP Diastolic 74 mmHg Heart Rate 66 /min Body Temperature 97.2 F Height 72 inches 6'0" Weight 183.00 lb BMI (Body Mass Index) 24.8 kg/m2 12/28/2010 9:03am BP Systolic 100 mmHg BP Diastolic 60 mmHg Heart Rate 60 /min Body Temperature 97.1 F Respiratory Rate 20 /min Height 72 inches 6'0" Weight 185.00 lb BMI (Body Mass Index) 25.1 kg/m2 12/07/2010 9:26am BP Systolic 148 mmHg BP Diastolic 80 mmHg Heart Rate 66 /min Body Temperature 96.9 F Height 72 inches 6'0" Weight 185.00 lb BMI (Body Mass Index) 25.1 kg/m2 12/04/2010 1:39pm BP Systolic 120 mmHg BP Diastolic 80 mmHg Heart Rate 64 /min Body Temperature 97.5 F Respiratory Rate 16 /min Height 72 inches 6'0" Weight 183.00 lb BMI (Body Mass Index) 24.8 kg/m2 07/25/2010 9:00am BP Systolic 100 mmHg BP Diastolic 70 mmHg Heart Rate 72 /min Respiratory Rate 15 /min Height 72 inches 6'0" Weight 184.00 lb BMI (Body Mass Index) 25.0 kg/m2 06/11/2010 3:20pm BP Systolic 114 mmHg BP Diastolic 80 mmHg Heart Rate 56 /min Body Temperature 98.5 F Height 72 inches 6'0" Weight 193.00 lb BMI (Body Mass Index) 26.2 kg/m2 02/13/2010 9:40am BP Systolic 140 mmHg BP Diastolic 90 mmHg Heart Rate 94 /min Respiratory Rate 16 /min Height 72 inches 6'0" Weight 192.00 lb BMI (Body Mass Index) 26.0 kg/m2 01/14/2010 10:04am BP Systolic 140 mmHg BP Diastolic 90 mmHg Heart Rate 68 /min Body Temperature 97.6 F Respiratory Rate 14 /min Height 72 inches 6'0" Weight 192.00 lb BMI (Body Mass Index) 26.0 kg/m2 10/24/2009 2:54pm BP Systolic 128 mmHg BP Diastolic 62 mmHg Heart Rate 60 /min Body Temperature 97.7 F Height 72 inches 6'0" Weight 200.00 lb BMI (Body Mass Index) 27.1 kg/m2 09/20/2009 8:25am BP Systolic 122 mmHg BP Diastolic 80 mmHg Heart Rate 66 /min Body Temperature 98.0 F Height 72 inches 6'0" Weight 200.00 lb BMI (Body Mass Index) 27.1 kg/m2 06/27/2008 10:46am BP Systolic 120 mmHg BP Diastolic 64 mmHg Heart Rate 84 /min Body Temperature 96.8 F Weight 186.00 lb 06/21/2008 9:05am BP Systolic 110 mmHg BP Diastolic 82 mmHg Heart Rate 78 /min Body Temperature 96.9 F Weight 186.00 lb 06/16/2008 11:08am BP Systolic 120 mmHg BP Diastolic 80 mmHg Heart Rate 80 /min Body Temperature 97.8 F Height 72 inches 6'0" Weight 194.00 lb BMI (Body Mass Index) 26.3 kg/m2 05/08/2008 11:01am BP Systolic 124 mmHg BP Diastolic 80 mmHg Heart Rate 80 /min Body Temperature 97.7 F Respiratory Rate 18 /min Weight 185.00 lb 04/05/2008 11:34am BP Systolic 144 mmHg BP Diastolic 84 mmHg Heart Rate 72 /min Body Temperature 96.9 F Respiratory Rate 16 /min Weight 190.00 lb 01/19/2007 8:51am BP Systolic 110 mmHg BP Diastolic 70 mmHg Heart Rate 80 /min Body Temperature 97.9 F Height 72 inches 6'0" Weight 184.00 lb BMI (Body Mass Index) 25.0 kg/m2 Results Test Date Facility Test Result H/L Range Note Ua - Micro (a) 04/01/2018 [facility] Appearance Cloudy (607)- - Color Yellow Glucose, Urine (Fma/CMC/CTX) Negative Bilirubin Negative Ketones Negative SP Grav 1.020 Blood Negative PH 8.5 Protein Negative Urobil 0.2 Nitrite Negative Leukocytes (Fma/[facility]) Negative Hyaline - /Lpf Granular - /Lpf WBC (Fma,[facility]) 0-1 # RBC - Mucus (Fma/CBC/[facility]) - /Lpf Epith - /Lpf Bacteria - /Hpf Amorphous (Fma/CMC/[facility]) - /Lpf Crystals, Fluid (Fma/CMC/CTX) - Z#Comments - Laboratory test finding 02/25/2018 [facility] [place] B-Type Natriuretic 271 pg/mL High <=100 Peptide BNP Magnesium 2.3 mg/dL N 1.9-2.7 TSH (Thyroid Stim Horm) 1.29 mcIU/mL N 0.34-5.60 Laboratory test 11/12/2017 [facility] Hemoglobin A1c 5.8 % High 4.1- 5.7 finding (607)- - (a) Laboratory test 10/22/2017 [facility] Medicine Sedimentation Rate 7mm finding (607)- - Laboratory test 10/22/2017 [facility] C-Reactive <0.3 mg/L 0.0-4.9 1 finding [address] [facility] Protein, [place] [address] (607)- - Urine Culture And 10/06/2017 [facility] [place] Urine Culture SEE RESULT 2 Sensitivities BELOW Ua - Non Micro 10/06/2017 [facility] Appearance cloudy (a) (607)- - Color yellow Glucose, Urine (Fma/[facility] [place]/CTX) neg Bilirubin neg Ketones neg SP Grav 1.015 Blood neg PH 7.5 Protein neg Urobil 0.2 Nitrite neg Leukocytes (a/[facility] [place]/[facility]) neg Laboratory test finding 08/03/2017 [facility] [place] Erythrocyte Sed Rate 4 mm/Hr N 0- 40 Comp Metabolic Panel 08/03/2017 [facility] [place] Sodium 138 mmol/L N 135-145 Potassium 4.8 mmol/L N 3.5-5.0 Chloride 103 mmol/L N 101-111 Co2 Carbon Dioxide 29 mmol/L N 22-32 Anion Gap 6 mmol/L N 2-11 Glucose 100 mg/dL N 70-100 Blood Urea Nitrogen 15 mg/dL N 6-24 Creatinine 1.02 mg/dL N 0.67-1.17 BUN/Creatinine Ratio 14.7 N 8-20 Calcium 9.8 mg/dL N 8.6-10.3 Total Protein 6.8 g/dL N 6.4-8.9 Albumin 4.5 g/dL N 3.2-5.2 Globulin 2.3 g/dL N 2-4 Albumin/Globulin Ratio 2.0 N 1-3 Total Bilirubin 0.50 mg/dL N 0.2-1.0 Alkaline Phosphatase 41 U/L N 34-104 Alt 30 U/L N 7-52 Ast 24 U/L N 13-39 Egfr Non- 72.4 >60 Egfr 93.1 >60 3 CBC Auto Diff 08/03/2017 [facility] [place] White Blood Count 5.3 10^3/uL N 3.5-10.8 Red Blood Count 4.49 10^6/uL N 4.00-5.40 Hemoglobin 14.7 g/dL N 14.0-18.0 Hematocrit 44 % N 42-52 Mean Corpuscular Volume 98 fL High 80-94 Mean Corpuscular Hemoglobin 33 pg High 27-31 Mean Corpuscular HGB Conc 33 g/dL N 31-36 Red Cell Distribution Width 13 % N 10.5-15 Platelet Count 182 10^3/uL N 150-450 Mean Platelet Volume 7.7 um3 N 7.4-10.4 Abs Neutrophils 3.1 10^3/uL N 1.5-7.7 Abs Lymphocytes 1.4 10^3/uL N 1.0-4.8 Abs Monocytes 0.3 10^3/uL N 0-0.8 Abs Eosinophils 0.5 10^3/uL N 0-0.6 Abs Basophils 0 10^3/uL N 0-0.2 Abs Nucleated RBC 0 10^3/uL Granulocyte % 58.0 % N 38-83 Lymphocyte % 25.8 % N 25-47 Monocyte % 6.1 % N 0-7 Eosinophil % 9.2 % High 0-6 Basophil % 0.9 % N 0-2 Nucleated Red Blood Cells % 0 Laboratory test 08/03/2017 [facility] [place] C Reactive < 1.00 mg/L N < 5.00 4 finding Protein Laboratory test 07/06/2017 [facility] [place] [facility] Surgical SEE RESULT 5 finding Interface Order BELOW CBC Electronic 06/24/2017 Allison Nidu (Fma) WBC 4.6 x10^3/UL 4.0- 10.0 Fma RBC 4.17 x10^6/UL 3.93-6.00 HGB 13.5 g/dL 12.0-17.0 HCT 41 % 35-50 MCV 97.8 fL High 80.0-95.0 6 MCH 32.4 pg High 25.6-32.2 MCHC 33.1 g/dL 32.2-36.0 RDW-CV 12.1 % 11.6-14.4 PLT 165 x10^3/UL 163-400 MPV 9.8 fL 9.4-12.4 Coleman# 2.66 x10^3/UL 1.56-6.13 Lymph# 1.23 x10^3/UL 1.18-3.74 Grand# 0.30 x10^3/UL 0.24-0.82 Eos # 0.4 x10^3/UL 0.0-0.5 Baso # 0.04 x10^3/UL 0.01-0.08 Coleman% 57.9 % 34.0-70.0 Lymph % 26.7 % 20.0-52.0 Grand% 6.5 % 5.0-12.0 Eos% 8.0 % High 0.7-7.0 Baso% 0.9 % 0.1-1.2 Laboratory test 06/24/2017 Keegan Indu (a) Free T4 1.04 ng/dL 0.75- 1.54 finding TSH 3.13 mIU/L 0.50-6.00 Vitamin B-12 >2000 pg/mL High 230-1050 Laboratory test 06/24/2017 [facility] Hemoglobin A1c 5.6 % 4.1-5.7 finding (607)- - (a) Ua - Non Micro 06/24/2017 [facility] Medicine Appearance yellow (a) (607)- - Color clear Glucose, Urine (Fma/CMC/CTX) neg Bilirubin neg Ketones neg SP Grav 1.015 Blood neg PH 8.5 Protein neg Urobil 0.2 Nitrite neg Leukocytes (Fma/CMC/[facility]) neg Lipid Profile 06/24/2017 Allison Indu (a) Cholesterol 176 mg/dL 120- 200 Triglycerides 46 mg/dL 30-200 HDL Cholesterol 80 mg/dL High 30-70 LDL (Calculated) 87 CALC 0-129 VLDL Cholesterol 9 mg/dL 0-50 HDL Risk Factor 2.2 CALC 0.0-4.4 Comprehensive Metabolic 06/24/2017 Keegan Indu (a) Sodium 135 mEq/L 134-149 Prof Potassium 4.5 mEq/L 3.6-5.5 Chloride 96 mEq/L 94-112 Carbon Dioxide 29 mEq/L 21-32 Glucose 115 mg/dL High 70-105 7 BUN 20 mg/dL 6-26 Creatinine 1.1 mg/dL 0.6-1.4 BUN/Creat Ratio 18.2 CALC 8.0-36.0 Calcium 9.4 mg/dL 8.6-10.2 Total Protein 6.6 g/dL 6.4-8.3 Albumin 4.6 g/dL 3.8-5.5 Globulin 2.0 g/dL 2.0-4.8 A/G Ratio 2.3 CALC 0.6-2.3 Alk. Phosphatase 39 U/L 22-95 Alt (SGPT) 25 U/L 7-35 Ast (Sgot) 22 U/L 5-34 Total Bilirubin 0.4 mg/dL 0.2-1.3 GFR Non- >60 ml/min/1.73m^ >=60 GFR >60 ml/min/1.73m^ >=60 Comp Metabolic Panel 04/06/2017 [facility] [place] Sodium 136 mmol/L N 133-145 Chloride 100 mmol/L Low 101-111 Co2 Carbon Dioxide 29 mmol/L N 22-32 Glucose 107 mg/dL High 70-100 Blood Urea Nitrogen 18 mg/dL N 6-24 Creatinine 1.19 mg/dL High 0.67-1.17 BUN/Creatinine Ratio 15.1 N 8-20 Calcium 9.7 mg/dL N 8.6-10.3 Total Protein 7.3 g/dL N 6.4-8.9 Albumin 4.4 g/dL N 3.2-5.2 Globulin 2.9 g/dL N 2-4 Albumin/Globulin Ratio 1.5 N 1-3 Total Bilirubin 0.60 mg/dL N 0.2-1.0 Alkaline Phosphatase 38 U/L N 34-104 Alt 27 U/L N 7-52 Egfr Non- 60.8 >60 Egfr 78.2 >60 8 Potassium 4.4 mmol/L N 3.5-5.0 Anion Gap 7 mmol/L N 2-11 Ast 24 U/L N 13-39 Laboratory test finding 04/06/2017 [facility] Troponin I 0.00 ng/mL <0.04 D Dimer Quantitative < 200 ng/mL N Less Than 230 9 Magnesium 2.2 mg/dL N 1.9-2.7 TSH (Thyroid Stim Horm) 2.40 mcIU/mL N 0.34-5.60 Laboratory test finding 04/06/2017 [facility] [place] [facility] Troponin I 0.00 ng/mL <0.04 CBC Auto Diff 04/06/2017 [facility] [place] [facility] White Blood Count 7.1 10^3/uL N 3.5-10.8 Red Blood Count 4.46 10^6/uL N 4.0-5.4 Hemoglobin 14.8 g/dL N 14.0-18.0 Hematocrit 44 % N 42-52 Mean Corpuscular Volume 98 fL High 80-94 Mean Corpuscular Hemoglobin 33 pg High 27-31 Mean Corpuscular HGB Conc 34 g/dL N 31-36 Red Cell Distribution Width 14 % N 10.5-15 Platelet Count 200 10^3/uL N 150-450 Mean Platelet Volume 8 um3 N 7.4-10.4 Abs Neutrophils 4.5 10^3/uL N 1.5-7.7 Abs Lymphocytes 1.7 10^3/uL N 1.0-4.8 Abs Monocytes 0.5 10^3/uL N 0-0.8 Abs Eosinophils 0.3 10^3/uL N 0-0.6 Abs Basophils 0 10^3/uL N 0-0.2 Abs Nucleated RBC 0 10^3/uL Granulocyte % 64.2 % N 38-83 Lymphocyte % 23.9 % Low 25-47 Monocyte % 6.5 % N 1-9 Eosinophil % 4.7 % N 0-6 Basophil % 0.7 % N 0-2 Nucleated Red Blood Cells % 0 Laboratory test 04/06/2017 [facility] Lactic Acid 1.1 mmol/L N 0.5-2.0 10 finding Comprehensive 02/10/2017 Allison Indu ([facility]ma) Sodium 137 mEq/L 134-149 Metabolic Prof Potassium 4.5 mEq/L 3.6-5.5 Chloride 103 mEq/L 94-112 Carbon Dioxide 25 mEq/L 21-32 Glucose 115 mg/dL High 70-105 BUN 14 mg/dL 6-26 Creatinine 1.0 mg/dL 0.6-1.4 BUN/Creat Ratio 14.0 CALC 8.0-36.0 Calcium 9.2 mg/dL 8.6-10.2 Total Protein 6.9 g/dL 6.4-8.3 Albumin 4.4 g/dL 3.8-5.5 Globulin 2.5 g/dL 2.0-4.8 A/G Ratio 1.8 CALC 0.6-2.3 Alk. Phosphatase 38 U/L 22-95 Alt (SGPT) 29 U/L 7-35 Ast (Sgot) 21 U/L 5-34 Total Bilirubin 0.4 mg/dL 0.2-1.3 GFR Non- >60 ml/min/1.73m^ >=60 GFR >60 ml/min/1.73m^ >=60 Laboratory test 02/10/2017 [facility] Hemoglobin A1c 5.4 % 4.1-5.7 finding (607)- - (Fma) Lipid Panel 08/05/2016 [facility] Cholesterol, Total 167 mg/dL 274-452 [address] [place] [address] (607)- - Triglycerides 109 mg/dL 0-149 HDL Cholesterol 57 mg/dL >39 VLDL Cholesterol Vito 22 mg/dL 5-40 LDL Cholesterol Calc 88 mg/dL 0-99 Comment: TNP Laboratory test 08/05/2016 [facility] TSH 2.970 uIU/mL 0.450-4.500 finding [address] [place] [address] (607)- - CBC With 08/05/2016 [facility] WBC 6.6 x10E3/uL 3.4-10.8 Differential/Platele [address] [place] [phone] (607)- - RBC 4.13 x10E6/uL Low 4.14-5.80 Hemoglobin 13.6 g/dL 12.6-17.7 Hematocrit 39.9 % 37.5-51.0 MCV 97 fL 79-97 MCH 32.9 pg 26.6-33.0 MCHC 34.1 g/dL 31.5-35.7 RDW 13.5 % 12.3-15.4 Platelets 286 x10E3/uL 150-379 Neutrophils 56 % Lymphs 27 % Monocytes 5 % Eos 10 % Basos 1 % Immature Cells TNP Neutrophils (Absolute) 3.7 x10E3/uL 1.4-7.0 Lymphs (Absolute) 1.8 x10E3/uL 0.7-3.1 Monocytes(Absolute) 0.4 x10E3/uL 0.1-0.9 Eos (Absolute) 0.7 x10E3/uL High 0.0-0.4 Baso (Absolute) 0.0 x10E3/uL 0.0-0.2 Immature Granulocytes 1 % Immature Grans (Abs) 0.0 x10E3/uL 0.0-0.1 NRBC TNP Hematology Comments: TNP Metabolic Panel (14), 08/05/2016 [facility] Glucose, Serum 99 mg/dL 65-[address] [place] [phone] (607)- - BUN 13 mg/dL 8-27 Creatinine, Serum 1.19 mg/dL 0.76-1.27 eGFR If NonAfricn Am 62 mL/min/1.73 >59 eGFR If Africn Am 72 mL/min/1.73 >59 BUN/Creatinine Ratio 11 10-24 Sodium, Serum 141 mmol/L 134-144 Potassium, Serum 5.1 mmol/L 3.5-5.2 Chloride, Serum 100 mmol/L 96-106 Carbon Dioxide, Total 29 mmol/L 18-29 Calcium, Serum 9.6 mg/dL 8.6-10.2 Protein, Total, Serum 6.6 g/dL 6.0-8.5 Albumin, Serum 4.1 g/dL 3.6-4.8 Globulin, Total 2.5 g/dL 1.5-4.5 A/G Ratio 1.6 1.2-2.2 Bilirubin, Total 0.3 mg/dL 0.0-1.2 Alkaline Phosphatase, S 42 IU/L 39-117 Ast (Sgot) 20 IU/L 0-40 Alt (SGPT) 23 IU/L 0-44 Hemoglobin A1c 08/05/2016 [facility] Hemoglobin A1c 6.0 % High 4.8-5.6 11 [address] [place] [address] (029)- - Laboratory 05/22/2016 [facility] [place] [facility] Surgical SEE RESULT 12, 13 test finding Pathology BELOW Laboratory 09/20/2015 [facility] [place] [facility] TSH (Thyroid 2.32 N 0.34-5.60 14 test finding Stim Horm) mcIU/mL Folic Acid (Folate) 7.67 ng/mL N >3.99 15 Vitamin B12 293 pg/mL N 180-914 16 Protein Electrophoresis 09/20/2015 [facility] [place] [facility] Total Protein(Pep) 7.2 g/dL N 6.3 - 7.9 Albumin 3.7 g/dL N 3.4-4.7 Alpha-1 Globulin 0.3 g/dL N 0.1-0.3 Alpha-2 Globulin 1.1 g/dL Abnormal 0.6-1.0 Beta Globulin 1.1 g/dL N 0.7-1.2 Gamma Globulin 1.0 g/dL N 0.6-1.6 Albumin/Globulin Ratio 1.06 N Impression See Comment N 17 Lyme AB/Western 09/05/2015 [facility] Lyme IgG/IgM <0.91 ISR 0.00-0.90 18 , 19 Blot Reflex [address] [place] [address] (607)- - Lyme Disease Ab, Quant, IgM <0.80 index 0.00-0.79 20 Ua - Micro (Fma) 09/04/2015 [facility] Appearance clear (607)- - Color yellow Glucose, Urine (Fma/CMC/CTX) neg Bilirubin neg Ketones neg SP Grav 1.020 Blood neg PH 7.0 Protein neg Urobil 0.2 Nitrite neg Leukocytes (Fma/[facility]) neg Hyaline - /Lpf Granular - /Lpf WBC (a,[facility]) 0-1 # RBC - Mucus - /Lpf Epith - /Lpf Bacteria - /Hpf Amorphous - /Lpf Crystals, Fluid (Fma/CMC/CTX) - Z#Comments - Comprehensive Metabolic 09/04/2015 Keegan Indu ([facility]) Sodium 145 mEq/L 134-149 Prof Potassium 4.4 mEq/L 3.6-5.5 Chloride 108 mEq/L 94-112 Carbon Dioxide 28 mEq/L 21-32 Glucose 119 mg/dL High 70-105 21 BUN 15 mg/dL 6-26 Creatinine 1.0 mg/dL 0.6-1.4 BUN/Creat Ratio 15.0 CALC 8.0-36.0 Calcium 9.1 mg/dL 8.6-10.2 Total Protein 6.7 g/dL 6.4-8.3 Albumin 4.2 g/dL 3.8-5.5 Globulin 2.5 g/dL 2.0-4.8 A/G Ratio 1.7 CALC 0.6-2.3 Alk. Phosphatase 42 U/L 22-95 Alt (SGPT) 28 U/L 7-35 Ast (Sgot) 24 U/L 5-34 Total Bilirubin 0.4 mg/dL 0.2-1.3 GFR Non- >60 ml/min/1.73m^ >=60 GFR >60 ml/min/1.73m^ >=60 Laboratory test 06/26/2015 [facility] Hemoglobin A1c 5.6 % 4.1-5.7 finding (607)- - (Fma) Comprehensive 06/26/2015 Allison Indu (a) Sodium 139 mEq/L 134-149 Metabolic Prof Potassium 4.8 mEq/L 3.6-5.5 Chloride 101 mEq/L 94-112 Carbon Dioxide 29 mEq/L 21-32 Glucose 122 mg/dL High 70-105 BUN 15 mg/dL 6-26 Creatinine 1.1 mg/dL 0.6-1.4 BUN/Creat Ratio 13.6 CALC 8.0-36.0 Calcium 10.0 mg/dL 8.6-10.2 Total Protein 7.5 g/dL 6.4-8.3 Albumin 4.7 g/dL 3.8-5.5 Globulin 2.8 g/dL 2.0-4.8 A/G Ratio 1.7 CALC 0.6-2.3 Alk. Phosphatase 45 U/L 22-95 Alt (SGPT) 29 U/L 7-35 Ast (Sgot) 25 U/L 5-34 Total Bilirubin 0.7 mg/dL 0.2-1.3 GFR Non- >60 ml/min/1.73m^ >=60 GFR >60 ml/min/1.73m^ >=60 Lipid Profile 06/26/2015 Keegan Griggs ([facility]) Cholesterol 221 mg/dL High 120-200 Triglycerides 139 mg/dL 30-200 HDL Cholesterol 72 mg/dL High 30-70 LDL (Calculated) 121 CALC 0-129 VLDL Cholesterol 28 mg/dL 0-50 HDL Risk Factor 3.1 CALC 0.0-4.4 Complete Blood Count 06/26/2015 Keegan Griggs (a) WBC 5.8 x10^3/UL 3.6-9.6 RBC 4.26 x10^6/UL 3.90-5.70 HGB 14.2 g/dL 12.1-17.2 HCT 42 % 36-50 MCV 98.0 fL High 82.2-97.4 MCH 33.3 pg 27.6-33.3 MCHC 33.9 g/dL 33.0-35.5 RDW 13.7 % 11.6-13.7 PLT 232 x10^3/UL 150-400 MPV 7.0 fL Low 7.4-10.4 Gran # 3.9 x10^3/UL 1.5-7.2 Lymph# 1.6 x10^3/UL 0.7-4.9 Grand# 0.3 x10^3/UL 0.1-0.9 Gran % 65.3 % 42.2-75.2 Lymph % 28.0 % 20.5-51.1 Grand% 6.7 % 1.7-9.3 Complete Blood Count 11/16/2014 Allison Indu ([facility]) WBC 6.4 x10^3/UL 3.6-9.6 RBC 4.38 x10^6/UL 3.90-5.70 HGB 14.4 g/dL 12.1-17.2 HCT 43 % 36-50 MCV 98.0 fL High 82.2-97.4 MCH 33.0 pg 27.6-33.3 MCHC 33.8 g/dL 33.0-35.5 RDW 13.9 % High 11.6-13.7 PLT 230 x10^3/UL 150-400 MPV 6.9 fL Low 7.4-10.4 Gran # 4.4 x10^3/UL 1.5-7.2 Lymph# 1.6 x10^3/UL 0.7-4.9 Grand# 0.4 x10^3/UL 0.1-0.9 Gran % 66.9 % 42.2-75.2 Lymph % 26.5 % 20.5-51.1 Grand% 6.6 % 1.7-9.3 Basic Metabolic Profile 11/16/2014 Allison Indu ([facility]) Sodium 137 mEq/L 134-149 Potassium 4.9 mEq/L 3.6-5.5 Chloride 100 mEq/L 94-112 Carbon Dioxide 27 mEq/L 21-32 Glucose 118 mg/dL High 70-105 22 BUN 20 mg/dL 6-26 Creatinine 0.9 mg/dL 0.6-1.4 BUN/Creat Ratio 22.2 CALC 8.0-36.0 Calcium 9.7 mg/dL 8.6-10.2 GFR Non- >60 ml/min/1.73m^ >=60 GFR >60 ml/min/1.73m^ >=60 Laboratory test 11/16/2014 [facility] Medicine Hemoglobin A1c 5.4 % 4.1-5.7 finding (607)- - (Fma/CMC,CX) Comprehensive 06/14/2014 Allison Indu (a) Sodium 145 mEq/L 134-149 Metabolic Prof Potassium 4.7 mEq/L 3.6-5.5 Chloride 103 mEq/L 94-112 Carbon Dioxide 26 mEq/L 21-32 Glucose 92 mg/dL 70-105 BUN 22 mg/dL 6-26 Creatinine 1.2 mg/dL 0.6-1.4 BUN/Creat Ratio 18.3 CALC 8.0-36.0 Calcium 10.2 mg/dL 8.6-10.2 Total Protein 7.4 g/dL 6.4-8.3 Albumin 4.8 g/dL 3.8-5.5 Globulin 2.6 g/dL 2.0-4.8 A/G Ratio 1.8 CALC 0.6-2.3 Alk. Phosphatase 39 U/L 22-95 Alt (SGPT) 40 U/L High 7-35 23 Ast (Sgot) 31 U/L 5-34 Total Bilirubin 0.5 mg/dL 0.2-1.3 Laboratory test 06/14/2014 [facility] C-Reactive 1.4 mg/L 0.0-5.0 finding 28 [facility] [place] [address] [phone] CBC Electronic 06/14/2014 [facility] WBC 6.5 3.6-9.6 ([facility]) (607)- - RBC 4.07 3.90-5.70 Hemoglobin (Fma/CMC/CTX) 14.0 g/dL 12.1 - 17.2 Hematocrit (a/CMC/CTX) 40.9 % 36.1 - 50.3 Platelets 257 10^3/ul 150-400 Lymph% 29.8 % 17.0-48.0 Mixed% 7.2 Neutrophils % 63.0 Mean Corpuscular Vol 101 High 82.2-97.4 Mean Corpuscular Hemoglobin 34.5 High 27.6-33.3 Mean Corpuscular Hemo Concen 34.3 32.0-36.0 RDW 13.7 11.6-13.7 Mean Platelet Volume 7.0 5.5-11.0 Laboratory test 05/05/2014 [facility] Hemoglobin A1c 5.8 % High 4.1- 5.7 finding (607)- - (Fma/CMC,CX) Comprehensive 05/05/2014 Allison Indu (a) Sodium 136 134-149 Metabolic Prof mEq/L Potassium 5.2 mEq/L 3.6-5.5 Chloride 97 mEq/L 94-112 Carbon Dioxide 31 mEq/L 21-32 Glucose 112 mg/dL High 70-105 24 BUN 25 mg/dL 6-26 Creatinine 1.4 mg/dL 0.6-1.4 BUN/Creat Ratio 17.9 CALC 8.0-36.0 Calcium 10.1 mg/dL 8.6-10.2 Total Protein 7.1 g/dL 6.4-8.3 Albumin 4.5 g/dL 3.8-5.5 Globulin 2.6 g/dL 2.0-4.8 A/G Ratio 1.7 CALC 0.6-2.3 Alk. Phosphatase 38 U/L 22-95 Alt (SGPT) 39 U/L High 7-35 Ast (Sgot) 21 U/L 5-34 Total Bilirubin 0.4 mg/dL 0.2-1.3 Neutrophil Cytoplasmic AB 03/22/2014 [facility] C-Anca Negative N Negative P Anca Negative N Negative Anca Reviewed By MD Heraclio Kearney <SEE NOTE> N 25 Laboratory test 03/22/2014 [facility] Urszula (Anti-Nuclear AB) Negative N Negative finding Screen Lindsay Screen Negative N Negative 26 Comprehensive Metabolic 03/02/2014 Allison Indu (a) Sodium 135 mEq/L 134-149 Prof Potassium 4.8 mEq/L 3.6-5.5 Chloride 98 mEq/L 94-112 Carbon Dioxide 28 mEq/L 21-32 Glucose 110 mg/dL High 70-105 27 BUN 21 mg/dL 6-26 Creatinine 1.1 mg/dL 0.6-1.4 BUN/Creat Ratio 19.1 CALC 8.0-36.0 Calcium 9.1 mg/dL 8.6-10.2 Total Protein 6.6 g/dL 6.4-8.3 Albumin 4.2 g/dL 3.8-5.5 Globulin 2.4 g/dL 2.0-4.8 A/G Ratio 1.8 CALC 0.6-2.3 Alk. Phosphatase 36 U/L 22-95 Alt (SGPT) 22 U/L 7-35 Ast (Sgot) 19 U/L 5-34 Total Bilirubin 0.3 mg/dL 0.2-1.3 Lipid Profile 03/02/2014 Allison Indu ([facility]) Cholesterol 223 mg/dL High 120-200 Triglycerides 211 mg/dL High 30-200 HDL Cholesterol 66 mg/dL 30-70 LDL (Calculated) 115 CALC 0-129 VLDL Cholesterol 42 mg/dL 0-50 HDL Risk Factor 3.4 CALC 0.0-4.4 Laboratory test 03/02/2014 [facility] Hemoglobin A1c 5.8 % High 4.1- 5.7 finding (607)- - (Fma/[facility],CX) Comprehensive 10/12/2013 Allison Indu ([facility]) Sodium 136 134-149 Metabolic Prof mEq/L Potassium 4.8 mEq/L 3.6-5.5 Chloride 99 mEq/L 94-112 Carbon Dioxide 29 mEq/L 21-32 Glucose 118 mg/dL High 70-105 28 BUN 16 mg/dL 6-26 Creatinine 1.0 mg/dL 0.6-1.4 BUN/Creat Ratio 16.0 CALC 8.0-36.0 Calcium 10.1 mg/dL 8.6-10.2 Total Protein 7.8 g/dL 6.3-8.1 Albumin 4.8 g/dL 3.8-5.5 Globulin 3.5 g/dL 2.0-4.8 A/G Ratio 1.6 CALC 0.6-2.3 Alk. Phosphatase 47 U/L 22-95 Alt (SGPT) 40 U/L High 7-35 29 Ast (Sgot) 35 U/L High 5-34 30 Total Bilirubin 0.5 mg/dL 0.2-1.3 Lipid Profile 10/12/2013 [facility] ([facility]) Cholesterol 220 mg/dL High 120-200 Triglycerides 189 mg/dL 30-200 HDL Cholesterol 66 mg/dL 30-70 LDL (Calculated) 116 CALC 0-129 VLDL Cholesterol 38 mg/dL 0-50 HDL Risk Factor 3.3 CALC 0.0-4.4 Laboratory test 10/12/2013 [facility] Hemoglobin A1c 5.6 % 4.1-5.7 finding (607)- - (Fma/CMC,CX) Laboratory test 04/01/2013 [facility] (a) Vitamin B-12 934 pg/mL 230-1050 finding Folate Level 14.02 ng/mL 3.00-16.00 Laboratory test finding 03/31/2013 [facility] ([facility]) B12 <pending> 230-1050 Folate <pending> 3.00-16.00 Lyme Igg/M 03/31/2013 [facility] Lyme IgG/IgM <0.91 index 0.00-0.90 31 W/[facility]X [place] [address] [place], [place] [id number] [phone] Lyme Disease Ab, Quant, IgM <0.91 index 0.00-0.90 32 Laboratory 03/15/2013 [facility] Hepatitis Be Negative Negative 33 test finding [address] [place] [address] [place] [address] [phone] Hep C Abs 03/15/2013 [facility] Hep C NON-REACTIVE Non-Reactive [address] [place] [address] [place] [address] [phone] Hep C S/Co Ratio 0.1 0.0-0.7 Iron/Tibc,%Sat Group 03/15/2013 [facility] Iron 76 g/dL 46-[address] [place] [id number] [phone] Total Iron Binding Cap. 325 g/dL 250-450 % Iron Saturation 23.4 % 13.0-45.0 Laboratory test 03/15/2013 [facility] Hemoglobin A1c 5.7 % 4.1-5.7 finding (607)- - (Fma/CMC,CX) Laboratory test 03/15/2013 [facility] ([facility]) Ferritin 94 ng/mL 22- 415 finding Comprehensive 01/24/2013 [facility] ([facility]) Albumin 4.9 g/dL 3.8-5.5 Metabolic Prof Alk. Phos. 53 U/L 22-95 Alt (SGPT) 54 U/L High 10-40 Ast (Sgot) 35 U/L High 5-34 BUN 19 mg/dL 6-26 Calcium 10.0 mg/dL 8.6-10.2 Chloride 100 mEq/L 94-112 Creatinine 1.2 mg/dL 0.6-1.4 Carbon Dioxide 26 mEq/L 21-32 Glucose 123 mg/dL High 70-105 Sodium 139 mEq/L 134-149 Total Bilirubin 0.3 mg/dL 0.2-1.3 Total Protein 7.6 g/dL 6.3-8.1 Potassium 4.9 mEq/L 3.6-5.5 Globulin 2.7 g/dL 2.0-4.8 A/G Ratio 1.8 Calc 0.6-2.3 BUN/Creat Ratio 15.4 Calc 8.0-36.0 Lipid Profile 01/24/2013 [facility] ([facility]) Cholesterol 250 mg/dL High 120-200 HDL 71 mg/dL High 30-70 Triglycerides 132 mg/dL 30-200 HDL Risk Factor 3.5 CALC 0.0-4.4 LDL (Calculated) 153 CALC High 0-129 VLDL (Calculated) 26 mg/dL 0-50 Laboratory test 01/24/2013 [facility] ([facility]) TSH 3.30 mIU/L 0.50- 6.00 finding Laboratory test 01/24/2013 [facility] C-Reactive 0.6 mg/L 0.0-5.0 34 finding [address] [place] [id number] [phone] Ua - Non Micro 07/28/2012 [facility] Appearance CLEAR (Fma) (607)- - Color YELLOW Glucose NEG Bilirubin NEG Ketones NEG SP Grav 1.025 Blood NEG PH 6.0 Protein NEG Urobil 0.2 Nitrite NEG Leukocytes (Fma/CMC/[facility]) NEG Comprehensive Metabolic 07/28/2012 [facility] (a) Albumin 4.7 g/dL 3.8-5.5 Prof Alk. Phos. 47 U/L 22-95 Alt (SGPT) 24 U/L 10-40 Ast (Sgot) 17 U/L 5-34 BUN 25 mg/dL 6-26 Calcium 9.6 mg/dL 8.6-10.2 Chloride 94 mEq/L 94-112 Creatinine 1.3 mg/dL 0.6-1.4 Carbon Dioxide 30 mEq/L 21-32 Glucose 105 mg/dL 70-105 Sodium 136 mEq/L 134-149 Total Bilirubin 0.7 mg/dL 0.2-1.3 Total Protein 6.7 g/dL 6.3-8.1 Potassium 4.9 mEq/L 3.6-5.5 Globulin 2.0 g/dL 2.0-4.8 A/G Ratio 2.3 Calc 0.6-2.3 BUN/Creat Ratio 19.0 Calc 8.0-36.0 Stool Culture 07/25/2012 [facility] [place] [facility] [place] Stool Culture (SEE NOTE) 35 Laboratory test finding 07/25/2012 [facility] [place] [place] O P: Giardia/Cryptospor (SEE NOTE) 36 Screen C. difficile Amplified Dna (SEE NOTE) 37 Fecal Lactoferrin (Stool WBC) (SEE NOTE) 38 Stool Culture 07/25/2012 [facility] [place] [facility] [place] Stool Culture (SEE NOTE) 39 Laboratory test finding 06/26/2012 [facility] [place] [place] C. difficile Amplified Dna (SEE NOTE ) 40 Stool Culture (SEE NOTE) 41 O P: Giardia/Cryptospor Screen (SEE NOTE) 42 Laboratory test finding 06/03/2012 [facility] ([facility]) PSA 0.90 ng/mL 0.00-4.00 Comprehensive Metabolic 06/03/2012 [facility] ([facility]) Albumin 5.3 g/dL 3.8-5.5 Prof Alk. Phos. 48 U/L 22-95 Alt (SGPT) 46 U/L High 10-40 43 Ast (Sgot) 25 U/L 5-34 BUN 31 mg/dL High 6-26 44 Calcium 10.4 mg/dL High 8.6-10.2 45 Chloride 96 mEq/L 94-112 Creatinine 1.2 mg/dL 0.6-1.4 Carbon Dioxide 31 mEq/L 21-32 Glucose 93 mg/dL 70-105 Sodium 135 mEq/L 134-149 Total Bilirubin 0.9 mg/dL 0.2-1.3 Total Protein 7.8 g/dL 6.3-8.1 Potassium 4.5 mEq/L 3.6-5.5 Globulin 2.4 g/dL 2.0-4.8 A/G Ratio 2.2 Calc 0.6-2.3 BUN/Creat Ratio 25.0 Calc 8.0-36.0 Lipid Profile 06/03/2012 Allison Indu ([facility]) Cholesterol 280 mg/dL High 120-200 HDL 66 mg/dL 30-70 Triglycerides 162 mg/dL 30-200 HDL Risk Factor 4.2 CALC 0.0-4.4 LDL (Calculated) 182 CALC High 0-129 VLDL (Calculated) 32 mg/dL 0-50 Laboratory test 06/03/2012 [facility] Hemoglobin A1c 5.8 % High 4.1- 5.7 finding (607)- - ([facility]ma/[facility],CX) Ua - Non Micro 06/03/2012 [facility] Appearance clear (Fma) (607)- - Color yellow Glucose, Urine ([facility]ma/[facility] [place]CTX) neg Bilirubin neg Ketones neg SP Grav 1.025 Blood neg PH 6.0 Protein neg Urobil 0.2 Nitrite neg Leukocytes (a/[facility] [place]) neg CBC Auto Diff 05/29/2012 [facility] [place] White Blood Count 5.8 10^3/uL 4.8-10.8 Red Blood Count 4.53 10^6/uL 4.0-5.4 Hemoglobin 14.8 g/dL 14.0-18.0 Hematocrit 44 % 42-52 Mean Corpuscular Volume 97 fL High 80-94 Mean Corpuscular Hemoglobin 33 pg High 27-31 Mean Corpuscular HGB Conc 34 g/dL 31-36 Red Cell Distribution Width 13 % 10.5-15 Platelet Count 121 10^3/uL Low 150-450 Mean Platelet Volume 8 um3 7.4-10.4 Abs Neutrophils 3.3 10^3/uL 1.5-7.7 Abs Lymphocytes 1.0 10^3/uL 1.0-4.8 Abs Monocytes 0.4 10^3/uL 0-0.8 Abs Eosinophils 1.0 10^3/uL High 0-0.6 Abs Basophils 0 10^3/uL 0-0.2 Abs Nucleated RBC 0 10^3/uL Manual Differential 05/29/2012 [facility] [place] Neutrophil % 61 % 38-83 Lymphocytes % 15 % Low 25-47 Monocytes % 7 % 0-13 Eosinophils % 17 % High 0-6 Macrocytosis 1+ Laboratory test finding 05/29/2012 [facility] [place] Pathologist Review (SEE NOTE) 46 Urinalysis 05/29/2012 [facility] [place] Urine Color Yellow Urine Appearance Cloudy Urine Specific [place] 1.018 1.010-1.030 Urine Esterase Negative Negative Urine Nitrate Negative Negative Urine Urobilinogen Negative E.U./dL Negative Urine Protein Negative mg/dL Negative Urine pH 8.0 5-9 Urine Blood Negative Negative Urine Ketones Negative mg/dL Negative Urine Bilirubin Negative Negative Urine Glucose Negative mg/dL Negative Comp Metabolic Panel 05/29/2012 [facility] [place] Sodium 137 mmol/L 133-145 Potassium 4.5 mmol/L 3.5-5.0 Chloride 102 mmol/L 101-111 Co2 Carbon Dioxide 30.0 mmol/L 22-32 Anion Gap 5.0 mmol/L 2-11 Glucose 128 mg/dL High 70-100 Blood Urea Nitrogen 13 mg/dL 6-24 Creatinine 1.30 mg/dL 0.50-1.40 BUN/Creatinine Ratio 10.0 8-20 Calcium 9.8 mg/dL 8.1-9.9 Total Protein 6.2 g/dL 6.2-8.1 Albumin 3.9 g/dL 3.2-5.2 Globulin 2.3 g/dL 2-4 Albumin/Globulin Ratio 1.7 1-3 Total Bilirubin 0.8 mg/dL 0.4-1.5 Alkaline Phosphatase 41 U/L 30-110 Alt 44 U/L 14-54 Ast 27 U/L 12-42 Egfr Non- 55.6 >60 Egfr 71.5 >60 47 CBC Auto Diff 02/13/2012 [facility] [place] White Blood Count 6.0 10^3/uL 4.8-10.8 Red Blood Count 4.16 10^6/uL 4.0-5.4 Hemoglobin 13.4 g/dL Low 14.0-18.0 Hematocrit 40 % Low 42-52 Mean Corpuscular Volume 96 fL High 80-94 Mean Corpuscular Hemoglobin 32 pg High 27-31 Mean Corpuscular HGB Conc 34 g/dL 31-36 Red Cell Distribution Width 13 % 10.5-15 Platelet Count 157 10^3/uL 150-450 Mean Platelet Volume 7 um3 Low 7.4-10.4 Abs Neutrophils 4.7 10^3/uL 1.5-7.7 Abs Lymphocytes 0.5 10^3/uL Low 1.0-4.8 Abs Monocytes 0.5 10^3/uL 0-0.8 Abs Eosinophils 0.3 10^3/uL 0-0.6 Abs Basophils 0 10^3/uL 0-0.2 Abs Nucleated RBC 0 10^3/uL Granulocyte % 78.3 % 38-83 Lymphocyte % 8.1 % Low 25-47 Monocyte % 8.0 % 1-9 Eosinophil % 5.1 % 0-6 Basophil % 0.5 % 0-2 Nucleated Red Blood Cells % 0 Comp Metabolic Panel 02/13/2012 [facility] Sodium 136 mmol/L 133-145 Potassium 4.1 mmol/L 3.5-5.0 Chloride 102 mmol/L 101-111 Co2 Carbon Dioxide 27.0 mmol/L 22-32 Anion Gap 7.0 mmol/L 2-11 Glucose 120 mg/dL High 70-100 Blood Urea Nitrogen 16 mg/dL 6-24 Creatinine 1.00 mg/dL 0.50-1.40 BUN/Creatinine Ratio 16.0 8-20 Calcium 9.2 mg/dL 8.1-9.9 Total Protein 7.3 g/dL 6.2-8.1 Albumin 4.2 g/dL 3.2-5.2 Globulin 3.1 g/dL 2-4 Albumin/Globulin Ratio 1.4 1-3 Total Bilirubin 0.5 mg/dL 0.4-1.5 Alkaline Phosphatase 43 U/L 30-110 Alt 34 U/L 14-54 Ast 26 U/L 12-42 Egfr Non- 75.5 >60 Egfr 97.1 >60 48 Ua - Non Micro ([facility]ma) 12/28/2010 [facility] Appearance CLEAR (607)- - Color YELLOW Glucose NEG Bilirubin NEG Ketones NEG SP Grav 1.020 Blood NEG PH 8.0 Protein NEG Urobil 0.2 Nitrite NEG Leukocytes ([facility]ma/[facility] [place]) NEG Culture Stool 12/06/2010 [facility] [place] Stool Specimen Description BROWN 49 C. Difficile Toxin A B NF 50 C. Difficile Toxin A B NEGATIVE BY IMMU <SEE NOTE> 51 Ova Parasite 12/06/2010 [facility] [place] O P: Giardia/Crypto NEGATIVE BY IMMU 52 Concen - Full Screen <SEE NOTE> Stool Specimen Description TORRI 53 Laboratory test 12/06/2010 [facility] [place] O P: Giardia/Crypto NO OVA PARASIT 54 finding Screen <SEE NOTE> Stool Cult Sensitivity NF 55 Shiga Toxin 1 And 2 (Ehec) NEGATIVE BY IMMU <SEE NOTE> 56 Lipid Profile 12/05/2010 Allison Indu (a) Cholesterol 244 mg/dL High 120-200 HDL 77 mg/dL High 30-70 Triglycerides 115 mg/dL 30-200 HDL Risk Factor 3.2 CALC 0.0-4.0 LDL (Calculated) 144 CALC High 0-129 VLDL (Calculated) 23 mg/dL 0-50 Comprehensive Metabolic 12/05/2010 Allison Indu (a) Albumin 4.8 g/dL 3.8-5.5 Prof Alk. Phos. 43 U/L 22-95 Alt (SGPT) 47 U/L High 10-40 Ast (Sgot) 35 U/L High 5-34 BUN 16 mg/dL 6-26 Calcium 10.1 mg/dL 8.6-10.2 Chloride 104 mEq/L 94-112 Creatinine 1.0 mg/dL 0.6-1.4 Carbon Dioxide 23 mEq/L 21-32 Glucose 114 mg/dL High 70-105 57 Sodium 140 mEq/L 134-149 Total Bilirubin 0.4 mg/dL 0.2-1.3 Total Protein 7.0 g/dL 6.3-8.1 Potassium 4.7 mEq/L 3.6-5.5 Globulin 2.3 g/dL 2.0-4.8 A/G Ratio 2.1 Calc 0.6-2.2 BUN/Creat Ratio 16.4 Calc 8.0-36.0 Laboratory test 12/05/2010 [facility] Sed Rate 3 mm finding (607)- - ([facility]ma/[facility]) CBC Electronic 12/05/2010 [facility] WBC 5.6 3.6-9.6 (a) (607)- - RBC 4.61 3.90-5.70 Hemoglobin (Fma/[facility]/CTX) 15.2 g/dL 12.1 - 17.2 Hematocrit (Fma/[facility]/CTX) 44.8 % 36.1 - 50.3 Platelets 226 10^3/ul 150-400 Lymph% 23.5 20.5-51.1 Mixed% 6.8 Neutrophils % 69.7 Mean Corpuscular Vol 97 82.2-97.4 Mean Corpuscular Hemoglobin 33.0 27.6-33.3 Mean Corpuscular Hemo Concen 34.0 32.0-36.0 RDW 12.1 11.6-13.7 Mean Platelet Volume 7.2 6.5-11.0 Laboratory test 06/11/2010 Allison Indu ([facility]) Troponin < 0.06 ng/ml Low 0.00-2.30 58 finding TSH 2.17 mIU/L 0.50-6.00 Basic Metabolic Profile 06/11/2010 Allison Indu (a) BUN 22 mg/dL 6- 26 Calcium 9.1 mg/dL 8.6-10.2 Chloride 96 mEq/L 94-112 Creatinine 1.0 mg/dL 0.6-1.4 Carbon Dioxide 23 mEq/L 21-32 Glucose 132 mg/dL High 70-105 59 Sodium 142 mEq/L 134-149 Potassium 4.2 mEq/L 3.6-5.5 BUN/Creat Ratio 20.9 Calc 8.0-36.0 Laboratory test 06/11/2010 [facility] Sed Rate 3 finding (607)- - ([facility]ma/[facility]) CBC Electronic 06/11/2010 [facility] WBC 6.2 3.6-9.6 (a) (607)- - RBC 4.30 3.90-5.70 Hemoglobin ([facility]ma/[facility]/CTX) 14.0 g/dL 12.1 - 17.2 Hematocrit ([facility]ma/[facility]/CTX) 41.8 % 36.1 - 50.3 Platelets 209 10^3/ul 150-400 Lymph% 24.3 20.5-51.1 Mixed% 5.6 Neutrophils % 70.1 Mean Corpuscular Vol 97 82.2-97.4 Mean Corpuscular Hemoglobin 32.6 27.6-33.3 Mean Corpuscular Hemo Concen 33.6 32.0-36.0 RDW 11.9 11.6-13.7 Mean Platelet Volume 6.8 6.5-11.0 Comp Metabolic Panel 05/28/2010 [facility] [place] Sodium 134 mmol/L Low 135-145 Potassium 5.1 mmol/L High 3.5-5.0 Chloride 101 mmol/L 101-111 Co2 (Carbon Dioxide) 29.0 mmol/L 22-32 Anion Gap 4.0 mmol/L 2-11 60 Glucose 86 mg/dL 70-100 BUN 15 mg/dL 6-24 Creatinine 1.00 mg/dL 0.50-1.40 One Over Creatinine 1.00 BUN/Creatinine Ratio 15.0 8-20 Calcium 9.2 mg/dL 8.1-9.9 Total Protein 6.5 GM/DL 6.2-8.1 Albumin 4.2 GM/DL 3.2-5.2 Globulin 2.3 GM/DL 2-4 Albumin/Globulin Ratio 1.8 1-3 Bilirubin Total 1.0 mg/dL 0.4-1.5 61 Alkaline Phosphatase 31 U/L Low 39-117 Alt (SGPT) 37 U/L 17-63 Ast (Sgot) 29 U/L 12-42 eGFR Non- 75.7 > 60 eGFR 97.4 > 60 62 Laboratory test 05/28/2010 [facility] [place] C Reactive Protein < 0.5 mg/dL Less Than 0.5 finding CBC With Manual Diff 05/28/2010 [facility] [place] White Blood Count 6.4 CUMM 4.8-10.8 Red Cell Count 3.95 CUMM Low 4.6-6.2 Hemoglobin 13.1 g/dL Low 14.0-18.0 Hematocrit 38 % Low 42-52 Mean Corpuscular Volume 96 um3 High 80-94 Mean Corpuscular Hemoglob 33 pg High 27-31 Mean Corpuscular HGB Cone 35 g/dL 32-36 Redcell Distribution WDTH 13 % 10.5-15 Platelet Count 186 CUMM 150-450 Mean Platelet Volume 8.0 um3 7.4-10.4 Polysegmented Neutrophil 57 % 38-83 Lymphocyte 21 % Low 25-47 Monocyte 7 % 0-13 Eosinophil 15 % High 0-6 Absolute Neutrophil Count 3.6 RBC Morphology NORMAL Laboratory test finding 05/28/2010 [facility] [place] Erythrocyte Sed Rate 4 MM/HR 0- 20 Comp Metabolic Panel 03/28/2010 [facility] [place] Sodium 133 mmol/L Low 135-145 Potassium 4.1 mmol/L 3.5-5.0 Chloride 101 mmol/L 101-111 Co2 (Carbon Dioxide) 28.0 mmol/L 22-32 Anion Gap 4.0 mmol/L 2-11 63 Glucose 95 mg/dL 70-100 BUN 14 mg/dL 6-24 Creatinine 0.90 mg/dL 0.50-1.40 One Over Creatinine 1.10 BUN/Creatinine Ratio 15.6 8-20 Calcium 8.8 mg/dL 8.1-9.9 Total Protein 5.9 GM/DL Low 6.2-8.1 Albumin 4.1 GM/DL 3.2-5.2 Globulin 1.8 GM/DL Low 2-4 Albumin/Globulin Ratio 2.3 1-3 Bilirubin Total 0.5 mg/dL 0.4-1.5 64 Alkaline Phosphatase 32 U/L Low 39-117 Alt (SGPT) 30 U/L 17-63 Ast (Sgot) 27 U/L 12-42 eGFR Non- 85.8 > 60 eGFR 110.3 > 60 65 Laboratory test finding 03/28/2010 [facility] [place] CPK (Creatine Kinase) 153 U/L 0- 200 CBC With Electronic Diff 03/28/2010 [facility] [place] White Blood Count 5.6 CUMM 4.8- 10.8 Red Cell Count 3.89 CUMM Low 4.6-6.2 Hemoglobin 12.9 g/dL Low 14.0-18.0 Hematocrit 38 % Low 42-52 Mean Corpuscular Volume 98 um3 High 80-94 Mean Corpuscular Hemoglob 33 pg High 27-31 Mean Corpuscular HGB Cone 34 g/dL 32-36 Redcell Distribution WDTH 13 % 10.5-15 Platelet Count 203 CUMM 150-450 Mean Platelet Volume 8.5 um3 7.4-10.4 Gran % 55.0 % 38-83 Lymph % 28.3 % 25-47 Mononuclear % 5.8 % 1-9 Eosinophil % 10.1 % High 0-6 Basophil % 0.8 % 0-2 Abs Lymphs 1.6 1.0-4.8 Abs Mononuclear 0.3 0-0.8 Absolute Neutrophil Count 3.1 1.5-7.7 Abs Eosinophils 0.6 0-0.6 Abs Basophils 0 0-0.2 Laboratory test 03/28/2010 [facility] [place] Erythrocyte Sed 4 MM/HR 0-20 finding Rate Comprehensive 01/14/2010 Keegan Indu ([facility]) Albumin 4.8 g/dL 3.8-5.5 Metabolic Prof Alk. Phos. 42 U/L 22-95 Alt (SGPT) 25 U/L 10-40 Ast (Sgot) 21 U/L 5-34 BUN 20 mg/dL 6-26 Calcium 9.1 mg/dL 8.6-10.2 Chloride 101 mEq/L 94-112 Creatinine 1.1 mg/dL 0.6-1.4 Carbon Dioxide 31 mEq/L 21-32 Glucose 98 mg/dL 70-105 Sodium 137 mEq/L 134-149 Total Bilirubin 0.5 mg/dL 0.2-1.3 Total Protein 6.9 g/dL 6.3-8.1 Potassium 4.7 mEq/L 3.6-5.5 Globulin 2.1 g/dL 2.0-4.8 A/G Ratio 2.2 Calc 0.6-2.2 BUN/Creat Ratio 18.4 Calc 8.0-36.0 Lipid Profile 01/14/2010 Keegan Indu ([facility]) Cholesterol 211 mg/dL High 120-200 HDL 78 mg/dL High 30-70 Triglycerides 107 mg/dL 30-200 HDL Risk Factor 2.7 CALC Low 4.2-7.0 LDL (Calculated) 112 CALC 0-129 VLDL (Calculated) 21 mg/dL 0-50 Laboratory test 01/14/2010 Allison Indu ([facility]) PSA 0.80 ng/mL 0.00- 4.00 finding Ua - Non Micro ([facility]) 01/14/2010 [facility] Appearance CLEAR (607)- - Color YELLOW Glucose, Urine ([facility]ma/[facility]/CTX) NEG Bilirubin NEG Ketones NEG SP Grav 1.015 Blood NEG PH 7.0 Protein SSA:NEG Urobil 0.2 E.U./dL Nitrite NEG Leukocytes (a/[facility]) NEG CBC ([facility]) 01/14/2010 [facility] WBC 5.4 3.6-9.6 (607)- - RBC 4.46 3.90-5.70 Hemoglobin ([facility]ma/[facility]/CTX) 14.4 g/dL 12.1 - 17.2 Hematocrit ([facility]ma/[facility]/CTX) 43.4 % 36.1 - 50.3 Platelets 197 10^3/ul 150-400 Lymph% 31.7 20.5-51.1 Mixed% 6.2 Neutrophils % 62.1 Mean Corpuscular Vol 97 82.2-97.4 Mean Corpuscular Hemoglobin 32.4 27.6-33.3 Mean Corpuscular Hemo Concen 33.3 33.0-36.0 RDW 10.8 Low 11.6-13.7 Mean Platelet Volume 7.7 7.4-10.4 Comp Metabolic Panel 12/22/2008 [facility] [place] Sodium 138 mmol/L 135-145 Potassium 4.5 mmol/L 3.5-5.0 Chloride 104 mmol/L 101-111 Co2 (Carbon Dioxide) 29.0 mmol/L 22-32 Anion Gap 5.0 mmol/L 2-11 66 Glucose 115 mg/dL High 70-100 67 BUN 14 mg/dL 6-24 Creatinine 0.90 mg/dL 0.50-1.40 One Over Creatinine 1.10 BUN/Creatinine Ratio 15.6 8-20 Calcium 9.3 mg/dL 8.1-9.9 68 Total Protein 6.2 GM/DL 6.2-8.1 Albumin 3.9 GM/DL 3.2-5.2 Globulin 2.3 GM/DL 2-4 Albumin/Globulin Ratio 1.7 1-3 Bilirubin Total 0.7 mg/dL 0.4-1.5 69 Alkaline Phosphatase 48 U/L 39-117 Alt (SGPT) 33 U/L 17-63 Ast (Sgot) 28 U/L 12-42 eGFR Non- 91.5 > 60 eGFR 110.7 > 60 70 Tibc 12/22/2008 [facility] [place] Iron Total 77 g/dL 45-182 Unsaturated Iron Binding 249 g/dL Total Iron Binding Capacity 326 g/dL 250-450 % Iron Saturation 24 % 15-55 Laboratory test finding 12/22/2008 [facility] [place] Ferritin 169 NG/ML 24-336 Rheumatoid Factor < 20.0 IU/mL Less Than 20 C Reactive Protein 1.0 mg/dL High Less Than 0.5 Cyclic Citrullinated Pep Igg <15.6 U () 71 Hla B27 Positive () 72 Ssa/SSB 12/22/2008 [facility] [place] Ssa NEGATIVE Negative SSB NEGATIVE Negative Urinalysis Stat 06/20/2008 [facility] [place] Ua Color YELLOW Appearance-Urine CLEAR Specific [place]-Ur 1.021 1.010-1.030 Esterase-Urine NEGATIVE Negative Nitrite NEGATIVE Negative [id number] NEGATIVE Negative Protein-Urine NEGATIVE Negative PH-Urine 8.0 5-9 Blood-Urine NEGATIVE Negative Ketones-Urine 1+ Abnormal Negative Bilirubin-Ur NEGATIVE Negative Glucose-Urine NEGATIVE Negative Drug Screen Urine 06/20/2008 [facility] [place] Amphetamines Urine NONE DETECTED None Detect Screen Barbituates Urine Screen NONE DETECTED None Detect Benzodiazepine Ur Screen NONE DETECTED None Detect Cannabinoid Urine Screen NONE DETECTED None Detect Cocaine Metabolites Urine NONE DETECTED None Detect Opiates Urine Screen NONE DETECTED None Detect PCP Urine Screen NONE DETECTED None Detect 73 Laboratory test 06/20/2008 [facility] [place] Carbon Monoxide 1.5 % 74 finding Laboratory test 06/20/2008 [facility] [place] Alcohol Stat < 10.0 mg/dL None Detected 75 finding Protime Stat 06/20/2008 [facility] [place] Protime 11.1 10.9-13.3 Inr 0.84 76 Laboratory test finding 06/20/2008 [facility] [place] PTT (Aptt) Stat 21.7 20.1-28.2 77 Comp Stat 06/20/2008 [facility] [place] Sodium 134 mmol/L Low 135-145 Potassium 4.0 mmol/L 3.5-5.0 Chloride 100 mmol/L Low 101-111 Co2 (Carbon Dioxide) 27.0 mmol/L 22-32 Anion Gap 7.0 mmol/L 2-11 78 Glucose 102 mg/dL High 70-100 79 BUN 16 mg/dL 6-24 Creatinine 1.05 mg/dL 0.50-1.40 One Over Creatinine 0.90 BUN/Creatinine Ratio 15.2 8-20 Calcium 9.2 mg/dL 8.1-9.9 80 Total Protein 7.7 GM/DL 6.2-8.1 Albumin 4.7 GM/DL 3.2-5.2 Globulin 3.0 GM/DL 2-4 Albumin/Globulin Ratio 1.6 1-3 Bilirubin Total 1.1 mg/dL 0.4-1.5 Alkaline Phosphatase 48 U/L 39-117 Alt (SGPT) 36 U/L 17-63 Ast (Sgot) 24 U/L 12-42 Laboratory test finding 06/20/2008 [facility] [place] Troponin-I (TnI) 0.01 NG/ML 0- 0.06 81 CBC With Manual Diff Stat 06/20/2008 [facility] [place] White Blood Count 9.6 CUMM 4.8- 10.8 Red Cell Count 4.78 CUMM 4.6-6.2 Hemoglobin 15.8 g/dL 14.0-18.0 Hematocrit 45 % 42-52 Mean Corpuscular Volume 95 um3 High 80-94 Mean Corpuscular Hemoglob 33 pg High 27-31 Mean Corpuscular HGB Cone 35 g/dL 32-36 Redcell Distribution WDTH 13 % 10.5-15 Platelet Count 223 CUMM 150-450 Mean Platelet Volume 6.4 um3 Low 7.4-10.4 Polysegmented Neutrophil 78 % 38-83 Lymphocyte 6 % Low 25-47 Monocyte 5 % 0-13 Eosenophil 11 % High 0-6 Absolute Neutrophil Count 7.4 RBC Morphology NORMAL CBC 06/16/2008 [facility] WBC 6.8 x103 4.3-10.9 82 [address] [place] [address] [phone] RBC 4.22 x106 Low 4.70-6.20 Hemoglobin 13.7 g/dL 13.0-17.0 Hematocrit 41.4 % 39.0-50.0 MCV 98.1 fl High 82.0-98.0 MCH 32.5 pg 27.5-33.5 MCHC 33.1 g/dL 32.0-36.0 RDW 13.3 % 11.5-14.5 Platelet Count 181 x103 130-400 MPV 9.8 fl 6.5-10.5 Segmented Neutrophils 58.9 % 44.0-74.0 Lymphocytes 23.9 % 15.0-45.0 Monocytes 6.7 % 2.0-13.0 Eosinophils 10.1 % High 0.0-6.0 Basophils 0.4 % 0.0-2.0 Neutrophil Absolute 4.0 x103 1.4-7.0 Lymphocytes Absolute 1.6 x103 1.0-3.4 Monocyte Absolute 0.5 x103 0.2-1.0 Eosinophil Absolute 0.7 x103 High 0.0-0.5 Basophil Absolute 0.0 x103 0.0-0.2 Laboratory test 06/16/2008 [facility] Mumps Titer 1.44 Index 83 finding [address] [place] [address] [phone] 1 1 sst 2 SEE RESULT BELOW Name: ANTONIO JONES : [address]: Yancy Mckeon DIRECTOR EXTERNAL COMMUNICATIONS Acct: [id number] Unit: [id number] AGE: 67 Location: [facility] Re10/06/17 SEX: M Status: REG REF SPEC: [id number] REBECCA: 10/06/17-829 VIVIENNE CORONADO: Yancy Mckeon NP REQ: [id number] RECD: 10/07/17 STATUS: COMP _ SOURCE: URINE [facility]: ORDERED: Urine Culture COMMENTS: [id number] Urine Source: Random Procedure Result Reported Site Urine Culture Final 10/08/17- 1617 ML No Growth (<1,000 CFU/mL) * ML - Main Lab . END OF REPORT DEPARTMENT OF PATHOLOGY, [address] [place] [address] Heraclio Quinteros M.D. Director [facility] # [id number] 3 Because ethnic data is not always readily available, this report includes an eGFR for both -Americans and non- Americans. The National Kidney Disease Education Program (NKDEP) does not endorse the use of the MDRD equation for patients that are not between the ages of 18 and 70, are , have extremes of body size, muscle mass, or nutritional status, or are non- or non-. According to the National Kidney Foundation, irrespective of diagnosis, the stage of the disease is based on the level of kidney function: Stage Description GFR(mL/min/1.73 m(2)) 1 Kidney damage with normal or decreased GFR 90 2 Kidney damage with mild decrease in GFR 60-89 3 Moderate decrease in GFR 30-59 4 Severe decrease in GFR 15-29 5 Kidney failure <15 (or dialysis) 4 Acute inflammation: >10.00 5 SEE RESULT BELOW Name: ANTONIO JONES : [address]: Gamal Cabrera MD Acct: [id number] Unit: [id number] AGE: 67 Location: ENDO Re07/06/17 SEX: M Status: REG REF SPEC: [id number] REBECCA: 07/06/17-[address] [facility] [address]: Gamal Cabrera MD REQ: [id number] RECD: 07/06/171239 STATUS: DENISHA DRIVER DR: Trisha Hare MD _ ORDERED: LEVEL 4/2 FINAL DIAGNOSIS 1. Stomach, biopsy: -- Fundic gland polyp. 2. Gastroesophageal junction, biopsy: -- Squamous and columnar mucosa with chronic inflammation and focal intestinal metaplasia. -- Dysplasia is absent. POST-OPERATIVE DIAGNOSIS EGD: esophagus ? Otero?s, biopsy; stomach ? polyps, biopsy; duodenum ? normal. GROSS DESCRIPTION 1. The specimen is received in formalin labeled, Gastric Polyp Biopsies, and consists of a 0.3 x 0.3 x 0.2 cm mendoza-pink polypoid soft tissue fragment which is submitted entirely in one cassette. 2. The specimen is received in formalin labeled, EG Junction Biopsies, and consists of two mendoza-pink irregular soft tissue fragments measuring 0.2 x 0.1 x 0.1 cm and 0.7 by up to 0.2 x 0.1 cm which are submitted entirely in one cassette. Signed by and Reported on: Yancy Aguiar MD 07/07/17 1452 END OF REPORT DEPARTMENT OF PATHOLOGY, [address] [place] [address] Heraclio Quinteros M.D. Director [facility] # [id number] 6 consistent w/ previous results 7 consistent w/ previous results 8 Because ethnic data is not always readily available, this report includes an eGFR for both -Americans and non- Americans. The National Kidney Disease Education Program (NKDEP) does not endorse the use of the MDRD equation for patients that are not between the ages of 18 and 70, are , have extremes of body size, muscle mass, or nutritional status, or are non- or non-. According to the National Kidney Foundation, irrespective of diagnosis, the stage of the disease is based on the level of kidney function: Stage Description GFR(mL/min/1.73 m(2)) 1 Kidney damage with normal or decreased GFR 90 2 Kidney damage with mild decrease in GFR 60-89 3 Moderate decrease in GFR 30-59 4 Severe decrease in GFR 15-29 5 Kidney failure <15 (or dialysis) 9 Please note: The following may produce a false positive D Dimer test: - Rheumatoid factor greater than 60 IU/ml - Plasma hemoglobin greater than 0.05 gm/dl - Bilirubin greater than 50 mg/dl - Lipids greater than 1000 mg/dl - FDP greater than 20 ug/ml 10 [facility] Severe Sepsis and Septic Shock Management Bundle Measure requires all lactic acids initially measuring >2.0 mmol/L be repeated. 11 Pre-diabetes: 5.7 - 6.4 Diabetes: >6.4 Glycemic control for adults with diabetes: <7.0 12 [id number] SEE RESULT BELOW Name: ANTONIO JONES : [address]: Jarett Sutton MD Acct: [id number] Unit: [id number] AGE: 66 Location: [facility] Re05/22/16 SEX: M Status: REG REF SPEC: [id number] REBECCA: 05/22/16-[address] [facility] [address]: Jarett Sutton MD REQ: [id number] RECD: 05/22/160854 STATUS: DENISHA DRIVER DR: Trisha Hare MD _ ORDERED: LEVEL IV/3 COMMENTS: [id number] FINAL DIAGNOSIS 1. Colon, hepatic flexure, biopsy: -- Tubular adenoma. -- No high grade dysplasia or malignancy. 2. Colon, transverse, biopsy: -- Sessile serrated adenoma. -- No high grade dysplasia or malignancy. 3. Colon, at 40 cm, biopsy: -- Tubular adenoma. -- No high grade dysplasia or malignancy. CLINICAL HISTORY History of colon polyp POST-OPERATIVE DIAGNOSIS Colonoscopy into cecum, prep fair - 3 polyps removed GROSS DESCRIPTION 1. The specimen is received in formalin labeled, Hepatic Flexure Polyp, and consists of two speckled mendoza-pink irregular to polypoid soft tissue fragments measuring 0.5 x 0.2 x 0.1 cm and 0.6 x 0.3 x 0.1 cm, which are entirely submitted in one cassette. 2. The specimen is received in formalin labeled, Transverse Colon Polyp, and consists of a 1.0 x 0.7 x 0.1 m aggregate of speckled mendoza-brown irregular to polypoid soft tissue fragments, which is entirely submitted in one cassette. 3. The specimen is received in formalin labeled, Colon Polyp at 40 cm, and consists of a CONTINUED ON NEXT PAGE * ML=Testing performed at Main Lab DEPARTMENT OF PATHOLOGY, [address] [place] [address] Heraclio Quinteros M.D. Director [facility] # [id number] RUN DATE: 05/23/16 [facility] LAB LIVE PAGE 2 Patient: ANTONIO JONES [id number] (Continued) GROSS DESCRIPTION (Continued) GROSS DESCRIPTION (Continued) 0.7 x 0.4 x 0.3 cm speckled mendoza-pink sessile polyp, which is inked, trisected and entirely submitted in one cassette. Signed (signature on file) Yancy Aguiar MD 09/01 1237 END OF REPORT * ML=Testing performed at Main Lab DEPARTMENT OF PATHOLOGY, [address] [place] [address] Heraclio Quinteros M.D. Director [facility] # [id number] 14 Copy Result to: TRISHA HARE ([id number]) 15 Copy Result to: TRISHA HARE ([id number]) 16 Normal Range 180 to 914 Indeterminate Range 145 to 180 Deficient Range <145 17 RESULT: No apparent monoclonal protein on serum electrophoresis. Test Performed by: [place] [address] Hotel Valet Attendant: Mario Herring II, M.D., Ph.D. 18 1 sst 19 Negative <0.91 Equivocal 0.91 - 1.09 Positive >1.09 20 Negative <0.80 Equivocal 0.80 - 1.19 Positive >1.19 IgM levels may peak at 3-6 weeks post infection, then gradually decline. 21 NON-FASTING 22 RESULTS VERIFIED BY REPEAT ANALYSIS 23 consistent w/ previous results 24 RESULTS VERIFIED BY REPEAT ANALYSIS 25 Heraclio Quinteros 26 The above LINDSAY screen is designed for the detection of antibodies to extractable nuclear antigen (LINDSAY) in human serum. It is a combination test for the detection of antibodies to ASSOCIATE PRODUCER, Sm, SS-A (Ro), and SS-B (La) nuclear antigens. 27 RESULTS VERIFIED BY REPEAT ANALYSIS 28 RESULTS VERIFIED BY REPEAT ANALYSIS 29 RESULTS VERIFIED BY REPEAT ANALYSIS 30 RESULTS VERIFIED BY REPEAT ANALYSIS 31 Negative <0.91 Equivocal 0.91 - 1.09 Positive >1.09 Note: The CDC currently advises that Western blot testing be performed following all equivocal or positive EIA results. Final diagnosis should include appropriate clinical findings and a positive EIA which is also positive by Western blot. 32 Negative <0.91 Equivocal 0.91 - 1.09 Positive >1.09 Note: IgM levels may peak at 3-6 weeks post infection, then gradually decline. FDA currently advises that Western Blot testing be performed following all equivocal or positive EIA results. Final diagnosis should include appropriate clinical findings and a positive EIA which is also positive by Western Blot. 33 2SST 34 FASTING; 1SST 35 RUN DATE: 07/26/12 [facility] LAB LIVE PAGE 1 RUN TIME: [address], [place] [address] Specimen Inquiry Name: ANTONIO JONES : [address]: Aniya Mccabe,Doctor Acct: [id number] Unit: [id number] AGE: 62 Location: [facility] Re07/25/12 SEX: M Status: REG REF SPEC: [id number] REBECCA: 07/25/12-[address]: Aniya Mccabe, Doctor REQ: [id number] RECD: 07/25/12 STATUS: RES NEISHA DR: GENO ZAIDI NP, MD _ SOURCE: STOOL SPDESC: ORDERED: Stool Culture, Fecal Lactoferr, C. diff Amp DNA, O P: Giar/Crypt Procedure Result Verified Site Stool Culture Preliminary 07/26/12- 1213 ML <No reportable results for this procedure> Stool Specimen Description Final 07/26/12- 0821 ML Stool Color Brown Stool Form Semi-formed Stool Consistency Soft Shiga Toxin 1 2 Final 07/26/12- 1219 ML SHIGA TOXIN 1 Negative by Immunochromatographic Assay SHIGA TOXIN 2 Negative by Immunochromatographic Assay C. difficile Amplified DNA PENDING Fecal Lactoferrin (Stool WBC) PENDING O P: Giardia/Cryptospor Screen PENDING END OF REPORT * ML=Testing performed at Main Lab DEPARTMENT OF PATHOLOGY, [facility] [employer] [place], [place] [address] Heraclio Quinteros M.D. Director [facility] Permit #[id number] RUN DATE: 07/26/12 [facility] LAB LIVE PAGE 1 RUN TIME: 1229 [facility] [employer] [place], [place] [address] Specimen Inquiry Name: ANTONIO JONES : [address]: Aniya Mccabe,Doctor Acct: [id number] Unit: [id number] AGE: 62 Location: [facility] Re07/25/12 SEX: M Status: REG REF SPEC: [id number] REBECCA: 07/25/12-[address]: Aniya Mccabe, Doctor REQ: [id number] RECD: 07/25/12 STATUS: RES NEISHA DR: GENO ZAIDI NP, MD _ SOURCE: STOOL SPDESC: ORDERED: Stool Culture, Fecal Lactoferr, C. diff Amp DNA, O P: Barbara/Crypt Procedure Result Verified Site Stool Culture Preliminary 07/26/12- 1213 ML <No reportable results for this procedure> Stool Specimen Description Final 07/26/12- 21 ML Stool Color Brown Stool Form Semi-formed Stool Consistency Soft Shiga Toxin 1 2 Final 07/26/12- 1219 ML SHIGA TOXIN 1 Negative by Immunochromatographic Assay SHIGA TOXIN 2 Negative by Immunochromatographic Assay C. difficile Amplified DNA PENDING Fecal Lactoferrin (Stool WBC) PENDING O P: Giardia/Cryptospor Screen Final 07/26/12- 1229 ML Cryptosporidium Antigen Negative by Immunoassay Giardia Antigen Negative by Immunoassay Giardia and cryptosporidium antigen testing performed by immunoassay. If patient is immunocompromised or has traveled to or is from a developing country, a full ova and parasite exam with microscopic (OPMIC) is recommended. All samples will be held one month in case full ova and parasite testing is requested. Contact the Microbiology Department at [phone]. TEST LIMITATIONS: CONTINUED ON NEXT PAGE * ML=Testing performed at Main Lab DEPARTMENT OF PATHOLOGY, [facility] [employer] [place] [address] Heraclio Quinteros M.D. Director [facility] Permit #[id number] RUN DATE: 07/26/12 [facility] LAB LIVE PAGE 2 RUN TIME: 770 [facility] [employer] [place], [place] [address] Specimen Inquiry Patient: ANTONIO JONES [id number] (Continued) Specimen: [id number] Collected: 07/25/12 Received: 07/25/12 (Continued) Procedure Result Verified Site O P: Giardia/Cryptospor Screen Final (continued) 07/26/12- 1229 As with all diagnostic procedures, the results obtained should be used in conjunction with other clinical information available the physician. Negative results can occur in samples containing antigen below lower limits of detection of the assay. The use of colonic washes, aspirates or other diluted sample types has not been established and could affect the performance of the assay. Stool samples contaminated with an oily or particulate base (eg. Barium, mineral oil etc.) could interfere with the test and are not recommended. END OF REPORT * ML=Testing performed at Main Lab DEPARTMENT OF PATHOLOGY, [address] [place] [address] Heraclio Quinteros M.D. Director [facility] Permit #[id number] RUN DATE: 07/26/12 [facility] LAB LIVE PAGE 1 RUN TIME: [address], [place] [address] Specimen Inquiry Name: ANTONIO JONES : [address]: Doctor Jose Roberto Acct: [id number] Unit: [id number] AGE: 62 Location: [facility] Re07/25/12 SEX: M Status: REG REF SPEC: [id number] REBECCA: 07/25/12-[address] [facility] [address]: Doctor Jose Roberto REQ: [id number] RECD: 07/25/12 STATUS: RES [facility] DR: GENO ZAIDI NP, MD _ SOURCE: STOOL SPDESC: ORDERED: Stool Culture, Fecal Lactoferr, C. diff Amp DNA, O P: Giar/Crypt COMMENTS: C. Difficile toxin testing is not performed on formed stool specimens. Test of cure on positive patients is not recommended. . Procedure Result Verified Site Stool Culture Preliminary 07/26/12- 1213 ML <No reportable results for this procedure> Stool Specimen Description Final 07/26/12- 0821 ML Stool Color Brown Stool Form Semi-formed Stool Consistency Soft Shiga Toxin 1 2 Final 07/26/12- 1219 ML SHIGA TOXIN 1 Negative by Immunochromatographic Assay SHIGA TOXIN 2 Negative by Immunochromatographic Assay C. difficile Amplified DNA Final 07/26/12- 1315 ML Test not performed Fecal Lactoferrin (Stool WBC) PENDING O P: Giardia/Cryptospor Screen Final 07/26/12- 1229 ML Cryptosporidium Antigen Negative by Immunoassay Giardia Antigen Negative by Immunoassay Giardia and cryptosporidium antigen testing performed by immunoassay. If patient is immunocompromised or has traveled to or is from a developing country, a full ova and parasite exam with microscopic (OPMIC) is recommended. All samples will be held one month in case full ova and parasite CONTINUED ON NEXT PAGE * ML=Testing performed at Main Lab DEPARTMENT OF PATHOLOGY, [facility] [employer] [place], [place] [address] Heraclio Quinteros M.D. Director [facility] Permit #[id number] RUN DATE: 07/26/12 [facility] LAB LIVE PAGE 2 RUN TIME: 5443 [facility] [employer] [place], [place] [address] Specimen Inquiry Patient: ANTONIO JONES [id number] (Continued) Specimen: [id number] Collected: 07/25/12 Received: 07/25/12 (Continued) Procedure Result Verified Site O P: Giardia/Cryptospor Screen Final (continued) 07/26/12- 4243 testing is requested. Contact the Microbiology Department at [phone]. TEST LIMITATIONS: As with all diagnostic procedures, the results obtained should be used in conjunction with other clinical information available the physician. Negative results can occur in samples containing antigen below lower limits of detection of the assay. The use of colonic washes, aspirates or other diluted sample types has not been established and could affect the performance of the assay. Stool samples contaminated with an oily or particulate base (eg. Barium, mineral oil etc.) could interfere with the test and are not recommended. END OF REPORT * ML=Testing performed at Main Lab DEPARTMENT OF PATHOLOGY, [employer] [place], [place] [address] Heraclio Quinteros M.D. Director [facility] Permit #[id number] RUN DATE: 07/26/12 [facility] LAB LIVE PAGE 1 RUN TIME: 1504 [employer] [place], [place] [address] Specimen Inquiry Name: ANTONIO JONES : [address]: Aniya Mccabe,Doctor Acct: [id number] Unit: [id number] AGE: 62 Location: [facility] Re07/25/12 SEX: M Status: REG REF SPEC: [id number] REBECCA: 07/25/12-[address]: Aniya Mccabe, Doctor REQ: [id number] RECD: 07/25/12 STATUS: RES OTHR DR: GENO ZAIDI NP, MD _ SOURCE: STOOL SPDESC: ORDERED: Stool Culture, Fecal Lactoferr, C. diff Amp DNA, O P: Giar/Crypt COMMENTS: C. Difficile toxin testing is not performed on formed stool specimens. Test of cure on positive patients is not recommended. Verbal to DORON CORLEY/DEJUAN by [id number] at 1454 on 07/26/12. Procedure Result Verified Site Stool Culture Preliminary 07/26/12- 1213 ML <No reportable results for this procedure> Stool Specimen Description Final 07/26/12- 0821 ML Stool Color Brown Stool Form Semi-formed Stool Consistency Soft Shiga Toxin 1 2 Final 07/26/12- 1219 ML SHIGA TOXIN 1 Negative by Immunochromatographic Assay SHIGA TOXIN 2 Negative by Immunochromatographic Assay C. difficile Amplified DNA Final 07/26/12- 1315 ML Test not performed Fecal Lactoferrin (Stool WBC) Final 07/26/12- 1504 ML Fecal Lactoferrin Negative by Immunoassay TEST LIMITATIONS: Assay detects elevated levels of lactoferrin released from fecal leukocytes as a marker of intestinal inflammation. The test may not be appropriate in immunocompromised persons. Fecal samples from breast fed infants should not be used with this assay. O P: Giardia/Cryptospor Screen Final 07/26/12- 1229 ML CONTINUED ON NEXT PAGE * ML=Testing performed at Main Lab DEPARTMENT OF PATHOLOGY, [address] [place] [address] Heraclio Quinteros M.D. Director [facility] #[id number] RUN DATE: 07/26/12 [facility] LAB LIVE PAGE 2 RUN TIME: [address], [place] [address] Specimen Inquiry Patient: JOSEROLANDOANTONIO [id number] (Continued) Specimen: [id number] Collected: 07/25/12 Received: 07/25/12 (Continued) Procedure Result Verified Site O P: Giardia/Cryptospor Screen Final (continued) 07/26/12- 1229 Cryptosporidium Antigen Negative by Immunoassay Giardia Antigen Negative by Immunoassay Giardia and cryptosporidium antigen testing performed by immunoassay. If patient is immunocompromised or has traveled to or is from a developing country, a full ova and parasite exam with microscopic (OPMIC) is recommended. All samples will be held one month in case full ova and parasite testing is requested. Contact the Microbiology Department at [phone]. TEST LIMITATIONS: As with all diagnostic procedures, the results obtained should be used in conjunction with other clinical information available the physician. Negative results can occur in samples containing antigen below lower limits of detection of the assay. The use of colonic washes, aspirates or other diluted sample types has not been established and could affect the performance of the assay. Stool samples contaminated with an oily or particulate base (eg. Barium, mineral oil etc.) could interfere with the test and are not recommended. END OF REPORT * ML=Testing performed at Main Lab DEPARTMENT OF PATHOLOGY, [facility] [employer] [place], [place] [address] Heraclio Quinteros M.D. Director [facility] Permit #[id number] RUN DATE: 07/27/12 [facility] LAB LIVE PAGE 1 RUN TIME: 3363 [facility] [employer] [place], [place] [address] Specimen Inquiry Name: NATONIO JONES : [address]: Aniya Staff,Doctor Acct: [id number] Unit: [id number] AGE: 62 Location: [facility] Re07/25/12 SEX: M Status: REG REF SPEC: [id number] REBECCA: 07/25/12-[address] [facility] [address]: GENO ZAIDI NP REQ: [id number] RECD: 07/25/12 STATUS: JOSUÉ DRIVER DR: Paul Wen MD _ SOURCE: STOOL SPDESC: ORDERED: Stool Culture, Fecal Lactoferr, C. diff Amp DNA, O P: Giar/Crypt COMMENTS: C. Difficile toxin testing is not performed on formed stool specimens. Test of cure on positive patients is not recommended. Verbal to DORON LINDQUIST by [id number] at 1454 on 07/26/12. Procedure Result Verified Site Stool Culture Final 07/27/12- 1133 ML Result No enteric pathogens isolated Testing for Salmonella, Shigella, Aeromonas, Plesiomonas, Yersinia and Campylobacter are included in a Stool Culture. Vibrio spp not routinely tested for in a stool culture. If testing is desired, please request specifically when placing test order. Sensitivities not routinely performed on stool isolates, as antibiotics may prolong the carriage rate of bacteria. Please contact the microbiology lab if sensitivities are required. Stool Specimen Description Final 07/26/12- 21 ML Stool Color Brown Stool Form Semi-formed Stool Consistency Soft Shiga Toxin 1 2 Final 07/26/12- 1219 ML SHIGA TOXIN 1 Negative by Immunochromatographic Assay SHIGA TOXIN 2 Negative by Immunochromatographic Assay CONTINUED ON NEXT PAGE * ML=Testing performed at Main Lab DEPARTMENT OF PATHOLOGY, [facility] [employer] [place] [address] Heraclio Quinteros M.D. Director [facility] Permit #[id number] RUN DATE: 07/27/12 [facility] LAB LIVE PAGE 2 RUN TIME: 9313 [facility] [employer] [place], [place] [address] Specimen Inquiry Patient: ANTONIO JONES [id number] (Continued) Specimen: [id number] Collected: 07/25/12 Received: 07/25/12-1828 (Continued) Procedure Result Verified Site C. difficile Amplified DNA Final 07/26/12- 1315 ML Test not performed Fecal Lactoferrin (Stool WBC) Final 07/26/12- 1504 ML Fecal Lactoferrin Negative by Immunoassay TEST LIMITATIONS: Assay detects elevated levels of lactoferrin released from fecal leukocytes as a marker of intestinal inflammation. The test may not be appropriate in immunocompromised persons. Fecal samples from breast fed infants should not be used with this assay. O P: Giardia/Cryptospor Screen Final 07/26/12- 1229 ML Cryptosporidium Antigen Negative by Immunoassay Giardia Antigen Negative by Immunoassay Giardia and cryptosporidium antigen testing performed by immunoassay. If patient is immunocompromised or has traveled to or is from a developing country, a full ova and parasite exam with microscopic (OPMIC) is recommended. All samples will be held one month in case full ova and parasite testing is requested. Contact the Microbiology Department at [phone]. TEST LIMITATIONS: As with all diagnostic procedures, the results obtained should be used in conjunction with other clinical information available the physician. Negative results can occur in samples containing antigen below lower limits of detection of the assay. The use of colonic washes, aspirates or other diluted sample types has not been established and could affect the performance of the assay. Stool samples contaminated with an oily or particulate base (eg. Barium, mineral oil etc.) could interfere with the test and are not recommended. END OF REPORT * ML=Testing performed at Main Lab DEPARTMENT OF PATHOLOGY, [facility] [employer] [place], [place] [address] Heraclio Quinteros M.D. Director [facility] Permit #[id number] RUN DATE: 06/26/12 [facility] LAB LIVE PAGE 1 RUN TIME: 1441 [facility] [employer] [place], [place] [address] Specimen Inquiry Name: ANTONIO JONES : [address]: Stella More NP Acct: [id number] Unit: [id number] AGE: 62 Location: [facility] Re06/26/12 SEX: M Status: REG REF SPEC: [id number] REBECCA: 06/26/[address]: Stella More NP REQ: [id number] RECD: 06/26/12 STATUS: RES _ SOURCE: STOOL SPDESC: ORDERED: Stool Culture, C. diff Amp DNA, O P: Barbara/Crypt QUERIES: Medent Number [id number] Procedure Result Verified Site Stool Culture PENDING Stool Specimen Description Final 06/26/12- 1331 ML Stool Color Brown Stool Form Semi-formed Stool Consistency Soft Shiga Toxin 1 2 PENDING C. difficile Amplified DNA Final 06/26/12- 1441 ML C. difficile Amplif DNA Positive: Toxigenic C. difficile with Pathogen Locus (PALOC) TEST LIMITATIONS: Assay does not distinguish between viable and nonviable organisms. Test results are to be used in conjunction with information available from the patient clinical evaluation and other diagnostic procedures. Two distinct groups have been identified that can harbor C. difficile asymptomatically at very high rates. Colonization at rates up to 50% and higher have been reported in infants and rates up to 32% in cystic fibrosis patients. O P: Giardia/Cryptospor Screen PENDING END OF REPORT * ML=Testing performed at Main Lab DEPARTMENT OF PATHOLOGY, [facility] [employer] [place], [place] [address] Heraclio Quinteros M.D. Director [facility] Permit #[id number] RUN DATE: 06/28/12 [facility] LAB LIVE PAGE 1 RUN TIME: [address]5 [address] [employer] [place], [place] [address] Specimen Inquiry Name: SHILOHANTONIO : [address]: Stella More NP Acct: [id number] Unit: [id number] AGE: 62 Location: [facility] Re06/26/12 SEX: M Status: REG REF SPEC: [id number] REBECCA: 06/26/12-[address]: Stella More NP REQ: [id number] RECD: 06/26/12 STATUS: RES _ SOURCE: STOOL SPDESC: ORDERED: Stool Culture, C. diff Amp DNA, O P: Giar/Crypt COMMENTS: Verbal to DR. LERMA by [id number] at 1450 on 06/26/12. Results read back accurately. QUERIES: Med[employer] Number [id number] Procedure Result Verified Site Stool Culture Final 06/28/12- 1109 ML Result No enteric pathogens isolated Testing for Salmonella, Shigella, Aeromonas, Plesiomonas, Yersinia and Campylobacter are included in a Stool Culture. Vibrio spp not routinely tested for in a stool culture. If testing is desired, please request specifically when placing test order. Sensitivities not routinely performed on stool isolates, as antibiotics may prolong the carriage rate of bacteria. Please contact the microbiology lab if sensitivities are required. Stool Specimen Description Final 06/26/12- 1331 ML Stool Color Brown Stool Form Semi-formed Stool Consistency Soft Shiga Toxin 1 2 Final 06/28/12- 1115 ML SHIGA TOXIN 1 Negative by Immunochromatographic Assay SHIGA TOXIN 2 Negative by Immunochromatographic Assay C. difficile Amplified DNA Final 06/26/12- 1441 ML C. difficile Amplif DNA Positive: Toxigenic C. difficile with Pathogen Locus (PALOC) CONTINUED ON NEXT PAGE * ML=Testing performed at Main Lab DEPARTMENT OF PATHOLOGY, [facility] [employer] [place] [address] Heraclio Quinteros M.D. Director [facility] Permit #[id number] RUN DATE: 06/28/12 [facility] LAB LIVE PAGE 2 RUN TIME: [address] [place] [address] Specimen Inquiry Patient: ATNONIO JONES [id number] (Continued) Specimen: [id number] Collected: 06/26/12 Received: 06/26/12-1241 (Continued) Procedure Result Verified Site C. difficile Amplified DNA Final (continued) 06/26/12- 144 TEST LIMITATIONS: Assay does not distinguish between viable and nonviable organisms. Test results are to be used in conjunction with information available from the patient clinical evaluation and other diagnostic procedures. Two distinct groups have been identified that can harbor C. difficile asymptomatically at very high rates. Colonization at rates up to 50% and higher have been reported in infants and rates up to 32% in cystic fibrosis patients. O P: Giardia/Cryptospor Screen PENDING END OF REPORT * ML=Testing performed at Main Lab DEPARTMENT OF PATHOLOGY, [address] [place] [address] Heraclio Quinteros M.D. Director [facility] Permit #[id number] RUN DATE: 06/28/12 [facility] LAB LIVE PAGE 1 RUN TIME: [address], [place] [address] Specimen Inquiry Name: ANTONIO JONES : [address]: Stella More NP Acct: [id number] Unit: [id number] AGE: 62 Location: [facility] Re06/26/12 SEX: M Status: REG REF SPEC: [id number] REBECCA: 06/26/12-[address]: Stella More NP REQ: [id number] RECD: 06/26/12 STATUS: COMP _ SOURCE: STOOL SPDESC: ORDERED: Stool Culture, C. diff Amp DNA, O P: Giar/Crypt COMMENTS: Verbal to DR. ALVARENGA by [id number] at 1450 on 06/26/12. Results read back accurately. QUERIES: Medent Number [id number] Procedure Result Verified Site Stool Culture Final 06/28/12- 1109 ML Result No enteric pathogens isolated Testing for Salmonella, Shigella, Aeromonas, Plesiomonas, Yersinia and Campylobacter are included in a Stool Culture. Vibrio spp not routinely tested for in a stool culture. If testing is desired, please request specifically when placing test order. Sensitivities not routinely performed on stool isolates, as antibiotics may prolong the carriage rate of bacteria. Please contact the microbiology lab if sensitivities are required. Stool Specimen Description Final 06/26/12- 1331 ML Stool Color Brown Stool Form Semi-formed Stool Consistency Soft Shiga Toxin 1 2 Final 06/28/12- 1115 ML SHIGA TOXIN 1 Negative by Immunochromatographic Assay SHIGA TOXIN 2 Negative by Immunochromatographic Assay C. difficile Amplified DNA Final 06/26/12- 1441 ML C. difficile Amplif DNA Positive: Toxigenic C. difficile with Pathogen Locus (PALOC) CONTINUED ON NEXT PAGE * ML=Testing performed at Main Lab DEPARTMENT OF PATHOLOGY, [facility] [employer] [place], [place] [address] Heraclio Quinteros M.D. Director [facility] Permit #[id number] RUN DATE: 06/28/12 [facility] LAB LIVE PAGE 2 RUN TIME: [address] [place] [address] Specimen Inquiry Patient: ANTONIO JONES [id number] (Continued) Specimen: [id number] Collected: 06/26/12 Received: 06/26/12 (Continued) Procedure Result Verified Site C. difficile Amplified DNA Final (continued) 06/26/12- 1441 TEST LIMITATIONS: Assay does not distinguish between viable and nonviable organisms. Test results are to be used in conjunction with information available from the patient clinical evaluation and other diagnostic procedures. Two distinct groups have been identified that can harbor C. difficile asymptomatically at very high rates. Colonization at rates up to 50% and higher have been reported in infants and rates up to 32% in cystic fibrosis patients. O P: Giardia/Cryptospor Screen Final 06/28/12- 1120 ML Cryptosporidium Antigen Negative by Immunoassay Giardia Antigen Negative by Immunoassay Giardia and cryptosporidium antigen testing performed by immunoassay. If patient is immunocompromised or has traveled to or is from a developing country, a full ova and parasite exam with microscopic (OPMIC) is recommended. All samples will be held one month in case full ova and parasite testing is requested. Contact the Microbiology Department at [phone]. TEST LIMITATIONS: As with all diagnostic procedures, the results obtained should be used in conjunction with other clinical information available the physician. Negative results can occur in samples containing antigen below lower limits of detection of the assay. The use of colonic washes, aspirates or other diluted sample types has not been established and could affect the performance of the assay. Stool samples contaminated with an oily or particulate base (eg. Barium, mineral oil etc.) could interfere with the test and are not recommended. END OF REPORT * ML=Testing performed at Main Lab DEPARTMENT OF PATHOLOGY, [address] [place] [address] Heraclio Quinteros M.D. Director [facility] Permit #[id number] 43 RESULT MISTI'D 44 RESULT MISTI'D 45 RESULT MISTI'D 46 REVIEWED BY HERACLIO QUINTEROS MD CBC and smear reviewed. Thrombocytopenia present without evidence of platelet clumping or satellitosis. CBC and smear reviewed. Eosinophilia confirmed. May be allergy, drug or parasite related. MILD MACROCYTIC ANEMIA 47 Because ethnic data is not always readily available, this report includes an eGFR for both -Americans and non- Americans. The National Kidney Disease Education Program (NKDEP) does not endorse the use of the MDRD equation for patients that are not between the ages of 18 and 70, are , have extremes of body size, muscle mass, or nutritional status, or are non- or non-. According to the National Kidney Foundation, irrespective of diagnosis, the stage of the disease is based on the level of kidney function: Stage Description GFR(mL/min/1.73 m(2)) 1 Kidney damage with normal or decreased GFR 90 2 Kidney damage with mild decrease in GFR 60-89 3 Moderate decrease in GFR 30-59 4 Severe decrease in GFR 15-29 5 Kidney failure <15 (or dialysis) 48 Because ethnic data is not always readily available, this report includes an eGFR for both -Americans and non- Americans. The National Kidney Disease Education Program (NKDEP) does not endorse the use of the MDRD equation for patients that are not between the ages of 18 and 70, are , have extremes of body size, muscle mass, or nutritional status, or are non- or non-. According to the National Kidney Foundation, irrespective of diagnosis, the stage of the disease is based on the level of kidney function: Stage Description GFR(mL/min/1.73 m(2)) 1 Kidney damage with normal or decreased GFR 90 2 Kidney damage with mild decrease in GFR 60-89 3 Moderate decrease in GFR 30-59 4 Severe decrease in GFR 15-29 5 Kidney failure <15 (or dialysis) 49 SOFT SEMI-FORMED 50 NO GROWTH OF CAMPYLOBACTER AFTER 48 HOURS 51 NEGATIVE BY IMMUNOASSAY 52 NEGATIVE BY IMMUNOASSAY NEGATIVE BY IMMUNOASSAY 53 SOFT SEMI-FORMED 54 NO OVA PARASITES OBSERVED BY DARLIN ACETATE CONCENTRATION. NO CYSTS /OR TROPHOZOITES OBSERVED BY TRICHROME STAIN. CRYPTOSPORIDIUM, CYCLOSPORA AND MICROSPORIDIUM TESTING NOT ROUTINELY PERFORMED WITH FULL OVA AND PARASITE ANALYSIS. 55 NEGATIVE FOR THE ENTERIC PATHOGENS - SALMONELLA, SHIGELLA, AEROMONAS, PLESIOMONAS AND YERSINIA. VIBRIO AND E. COLI 0157 NOT ROUTINELY TESTED FOR IN A STOOL CULTURE. PLEASE SUBMIT SAMPLE WITH SPECIFIC REQUEST FOR DESIRED ORGANISM(S). 56 NEGATIVE BY IMMUNOCHROMATOGRAPHIC ASSAY NEGATIVE BY IMMUNOCHROMATOGRAPHIC ASSAY 57 RESULT MISTI'D 58 result misti'd 59 result misti'd 60 Anion gap measurement may be of limited value in the presence of any alkalosis, especially in a combined acid base disorder. . 61 A metabolite of Naproxen, O-desmethylnaproxen, has been shown to interfere with the Jendrassik-Juliette method for measuring total bilirubin. Samples from patients who have taken Naproxen have shown spurious elevation in total bilirubin levels. 62 Because ethnic data is not always readily available, this report includes an eGFR for both -Americans and non- Americans. The National Kidney Disease Education Program (NKDEP) does not endorse the use of the MDRD equation for patients that are not between the ages of 18 and 70, are , have extremes of body size, muscle mass, or nutritional status, or are non- or non-. According to the National Kidney Foundation, irrespective of diagnosis, the stage of the disease is based on the level of kidney function: Stage Description GFR(mL/min/1.73 m(2)) 1 Kidney damage with normal or decreased GFR 90 2 Kidney damage with mild decrease in GFR 60-89 3 Moderate decrease in GFR 30-59 4 Severe decrease in GFR 15-29 5 Kidney failure <15 (or dialysis) 63 Anion gap measurement may be of limited value in the presence of any alkalosis, especially in a combined acid base disorder. . 64 A metabolite of Naproxen, O-desmethylnaproxen, has been shown to interfere with the Jendrassik-Juliette method for measuring total bilirubin. Samples from patients who have taken Naproxen have shown spurious elevation in total bilirubin levels. 65 Because ethnic data is not always readily available, this report includes an eGFR for both -Americans and non- Americans. The National Kidney Disease Education Program (NKDEP) does not endorse the use of the MDRD equation for patients that are not between the ages of 18 and 70, are , have extremes of body size, muscle mass, or nutritional status, or are non- or non-. According to the National Kidney Foundation, irrespective of diagnosis, the stage of the disease is based on the level of kidney function: Stage Description GFR(mL/min/1.73 m(2)) 1 Kidney damage with normal or decreased GFR 90 2 Kidney damage with mild decrease in GFR 60-89 3 Moderate decrease in GFR 30-59 4 Severe decrease in GFR 15-29 5 Kidney failure <15 (or dialysis) 66 Anion gap measurement may be of limited value in the presence of any alkalosis, especially in a combined acid base disorder. . 67 Note change in reference range as of 10/07/07. The change was based on recommendations from the [employer]. 68 Please note change in reference range effective 07 . 69 A metabolite of Naproxen, O-desmethylnaproxen, has been shown to interfere with the Jendrsteveik-[place]stburg method for measuring total bilirubin. Samples from patients who have taken Naproxen have shown spurious elevation in total bilirubin levels. 70 Because ethnic data is not always readily available, this report includes an eGFR for both -Americans and non- Americans. The National Kidney Disease Education Program (NKDEP) does not endorse the use of the MDRD equation for patients that are not between the ages of 18 and 70, are , have extremes of body size, muscle mass, or nutritional status, or are non- or non-. According to the National Kidney Foundation, irrespective of diagnosis, the stage of the disease is based on the level of kidney function: Stage Description GFR(mL/min/1.73 m(2)) 1 Kidney damage with normal or decreased GFR 90 2 Kidney damage with mild decrease in GFR 60-89 3 Moderate decrease in GFR 30-59 4 Severe decrease in GFR 15-29 5 Kidney failure <15 (or dialysis) 71 -- REFERENCE VALUE -- <20.0 (Negative) 20.0-39.9 (Weak Positive) 40.0-59.9 (Positive) >=60.0 (Strong Positive) Test Performed by: [facility] [address] [place] [address] Hotel Valet Attendant: Keo Jaramillo III, M.D. 72 Test Performed by: [facility] [address] [place] [address] Hotel Valet Attendant: Keo Jaramillo III, M.D. 73 THE URINE SPECIMEN WAS TESTED AT THE LISTED CUTOFFS: DRUG CLASS TEST LEVEL (NG/ML) AMPHETAMINES 300 BARBITUATES 200 BENZODIAZEPINE METABOLITES 200 COCAINE METABOLITES 300 CANNABINOIDS 25 OPIATES 200 PCP 25 THIS IS A SCREENING PROCEDURE. POSITIVE RESULTS ARE NOT CONFIRMED. SPECIMEN WAS RECEIVED WITHOUT CHAIN OF CUSTODY. RESULTS SHOULD BE USED FOR MEDICAL PURPOSES ONLY. . 74 NORMAL RANGE: NONSMOKERS: LESS THAN 5% HEAVY SMOKERS: LESS THAN 10% LIFE THREATENING: OVER 15 % 75 The detection limit for ETHANOL is 10.0 mg/dl . Values less than 10.0 mg/dl cannot be accurately measured. . 76 RUDY VALUE=2.01 ( OF 01/22/07 Recommended INR for Patients on Oral Anticoagulants Prophylaxis 2.0 - 3.0 Treatment of thrombosis 2.0 - 3.0 Prevention of embolism 2.0 - 3.0 Prevention of embolism from prosthetic heart valves 2.5 - 3.5 77 PLEASE NOTE NEW REFERENCE RANGE EFFECTIVE 07. 78 Anion gap measurement may be of limited value in the presence of any alkalosis, especially in a combined acid base disorder. . 79 Note change in reference range as of 10/07/07. The change was based on recommendations from the [employer] Diabetes [employer]. 80 Please note change in reference range effective 07 . 81 New Reference Range and Interpretation effective 11/19/01 TnI (ng/ml) INTERPRETATION <0.06 ng/ml NOT SUPPORTIVE OF DIAGNOSIS OF [place] 0.06 - 0.50 ng/ml INDETERMINATE: SUGGEST SERIAL STUDIES IF CLINICALLY INDICATED. > 0.5 ng/ml CONSISTENT WITH DIAGNOSIS OF [place] . 82 1 sst; 1 lav 83 < .90 Neg (No Immunity) .91- 1.09 Equivocal >=1.10 Positive . Procedures Date Code Description Status 11/12/2017 63833 Finger Or Heel Stick Completed 05/22/2016 [id number] Colonoscopy Completed 06/14/2014 63694 Pulse Oximetry Completed 04/27/2013 12380 Brunilda-Noninvasive physiologic studies of upper or lower Completed extremity 04/27/2013 87627 Brunilda-Noninvasive physiologic studies of upper or lower Completed extremity 06/11/2010 98867 Electrocardiogram Complete Completed 01/03/2010 [id number] Colonoscopy Completed 10/10/2008 22208 Spirometry Completed Encounters Type Date Location Provider Dx Diagnosis Office Visit 12/17/2017 Main Office Trisha Hare M.D. M45.0 Ankylosing 11:40a spondylitis of multiple sites in spine M15.0 Primary generalized (osteo)arthritis R00.2 Palpitations F10.20 Alcohol dependence, uncomplicated F41.9 Anxiety disorder, unspecified Office Visit 11/12/2017 10:30a [facility] Yancy Z23 Encounter for Linda, COBBLER SOLE immunization M25.521 Pain in right elbow R73.01 Impaired fasting glucose M79.641 Pain in right hand R31.9 Hematuria, unspecified M25.522 Pain in left elbow K59.00 Constipation, unspecified M79.642 Pain in left hand M79.671 Pain in right foot M79.672 Pain in left foot Office Visit 10/22/2017 2:15p [facility] Yancy M25.521 Pain in Linda, COBBLER SOLE right elbow M25.541 Pain in joints of right hand M25.511 Pain in right shoulder M25.542 Pain in joints of left hand M25.512 Pain in left shoulder M25.522 Pain in left elbow M25.571 Pain in right ankle and joints of right foot Office Visit 10/06/2017 6:00p Main Office Yancy R31.9 Hematuria, Linda, COBBLER SOLE unspecified K59.00 Constipation, unspecified M45.0 Ankylosing spondylitis of multiple sites in spine R35.0 Frequency of micturition Office Visit 09/02/2017 [facility] Yancy K59.00 Constipation, 11:00a Office Linda, COBBLER SOLE unspecified M45.0 Ankylosing spondylitis of multiple sites in spine Office Visit 08/12/2017 [facility] Yancy K59.00 Constipation, 4:30p Office Linda, COBBLER SOLE unspecified M45.0 Ankylosing spondylitis of multiple sites in spine I10 Essential (primary) hypertension R00.2 Palpitations R35.0 Frequency of micturition Office Visit 06/24/2017 9:40a [facility] Trisha Hare, I10 Essential (primary) M.DZaida hypertension M45.0 Ankylosing spondylitis of multiple sites in spine G47.33 Obstructive sleep apnea (adult) (pediatric) F41.9 Anxiety disorder, unspecified R73.01 Impaired fasting glucose Office Visit 05/18/2017 3:20p Main Office Trisha Hare, F41.9 Anxiety disorder, M.D. unspecified R68.2 Dry mouth, unspecified Office Visit 05/12/2017 1:40p [facility] Trisha Hare, I10 Essential (primary) M.D. hypertension J44.9 Chronic obstructive pulmonary disease, unspecified M45.0 Ankylosing spondylitis of multiple sites in spine F41.9 Anxiety disorder, unspecified G47.33 Obstructive sleep apnea (adult) (pediatric) Office Visit 02/10/2017 10:40a [facility] Trisha Hare, I10 Essential (primary) M.D. hypertension J44.9 Chronic obstructive pulmonary disease, unspecified M45.0 Ankylosing spondylitis of multiple sites in spine F10.20 Alcohol dependence, uncomplicated R73.01 Impaired fasting glucose Office Visit 08/12/2016 9:40a Main Office Trisha Hare, Z00.01 Encounter for M.D. general adult medical exam w abnormal findings I10 Essential (primary) hypertension R73.01 Impaired fasting glucose J44.9 Chronic obstructive pulmonary disease, unspecified J32.9 Chronic sinusitis, unspecified M45.0 Ankylosing spondylitis of multiple sites in spine R19.7 Diarrhea, unspecified F10.20 Alcohol dependence, uncomplicated G60.9 Hereditary and idiopathic neuropathy, unspecified Office Visit 02/12/2016 4:20p Main Office Trisha Hare, J44.9 Chronic obstructive M.D. pulmonary disease, unspecified I10 Essential (primary) hypertension R73.01 Impaired fasting glucose E78.5 Hyperlipidemia, unspecified J32.9 Chronic sinusitis, unspecified Office Visit 12/03/2015 1:45p Main Office ALEXANDRA Carney M25.512 Pain in left shoulder M25.511 Pain in right shoulder Office Visit 08/29/2015 3:00p Main Office Raad Jurado S70.361A Insect bite Rubi Avalos (nonvenomous), right thigh, initial encounter M54.89 Other dorsalgia W57.xxxA Bit/stung by nonvenom insect & oth nonvenom arthropods, init Office Visit 06/26/2015 9:00a Main Office Trisha Hare, J44.9 Chronic obstructive M.D. pulmonary disease, unspecified R73.01 Impaired fasting glucose I10 Essential (primary) hypertension M45.6 Ankylosing spondylitis lumbar region G50.1 Atypical facial pain Z23 Encounter for immunization Office Visit 02/07/2015 2:00p Main Office Kareem Alamo M.D. M45.6 Ankylosing spondylitis lumbar region L03.312 Cellulitis of back [any part except buttock] Office Visit 01/18/2015 2:00p Main Office Kareem Alamo M.D. M45.6 Ankylosing spondylitis lumbar region J32.9 Chronic sinusitis, unspecified F40.243 Fear of flying Office Visit 11/16/2014 10:20a Main Office Kareem Alamo Z01.818 Encounter for other M.D. preprocedural examination J32.9 Chronic sinusitis, unspecified R73.01 Impaired fasting glucose Office Visit 06/14/2014 2:20p Main Office Kareem Alamo M.D. 786.50 Pain Chest Unspec 719.45 Pain Joint Pelvic Region & Thigh Office Visit 05/03/2014 12:30p Main Office Kareem Alamo M.D. 790.21 Impaired Fasting Glucose 272.4 Hyperlipidemia Other Unspec 300.00 Anxiety State Unspec 401.9 Hypertension Unspec 794.8 Liver Study Abnormal Office Visit 02/02/2014 1:40p Main Office Kareem Alamo M.D. 473.0 Sinusitis Chronic Maxillary 780.52 Insomnia Unspecified 724.5 Backache Unspec 272.4 Hyperlipidemia Other Unspec 790.21 Impaired Fasting Glucose Office Visit 12/02/2013 3:45p Main Office Corrina José 780.52 Insomnia Unspecified DIRECTOR EXTERNAL COMMUNICATIONS Office Visit 10/06/2013 10:00a Main Office Kareem Alamo 272.4 Hyperlipidemia Other M.D. Unspec 401.9 Hypertension Unspec 473.0 Sinusitis Chronic Maxillary 790.21 Impaired Fasting Glucose 708.9 Urticaria Unspec Office Visit 08/10/2013 3:50p Main Office Kareem Alamo M.D. 692.9 Eczema NOS, Contact Dermatitis NOS Office Visit 06/23/2013 2:00p Main Office Paul Wen, 473.0 Sinusitis Chronic M.D. Maxillary 695.3 Rosacea 356.8 Neuropathy Other Spec Idiopathic Peripheral 790.21 Impaired Fasting Glucose Office Visit 03/31/2013 2:00p Main Office Paul Wen, 790.21 Impaired Fasting M.D. Glucose 272.4 Hyperlipidemia Other Unspec 401.9 Hypertension Unspec 496 COPD Airway Obstruction Chronic Not Class Elsewhere 695.3 Rosacea 356.8 Neuropathy Other Spec Idiopathic Peripheral Office Visit 03/15/2013 3:40p [facility] Paul Myers 790.21 Impaired Rubi Wen Fasting Glucose 272.4 Hyperlipidemia Other Unspec 401.9 Hypertension Unspec 729.5 Pain In Limb 794.8 Liver Study Abnormal 300.00 Anxiety State Unspec 496 COPD Airway Obstruction Chronic Not Class Elsewhere Office Visit 01/24/2013 8:50a Main Office Kareem Alamo M.D. 525.9 Teeth And Supporting Structures Disorders Unspec 272.4 Hyperlipidemia Other Unspec 708.9 Urticaria Unspec Office Visit 07/28/2012 9:15a Main Office Stella More, 724.5 Backache Unspec COBBLER SOLE Office Visit 06/26/2012 9:15a Main Office Stella More, 787.91 Diarrhea COBBLER SOLE Office Visit 06/03/2012 12:00p Main Office Paul Myers V70.0 Examination General Rubi Wen Medical Routine AT Health Care Facility 473.0 Sinusitis Chronic Maxillary 780.79 Malaise And Fatigue Other V77.91 Screening For Lipoid Disorders 401.9 Hypertension Unspec 272.4 Hyperlipidemia Other Unspec 496 COPD Airway Obstruction Chronic Not Class Elsewhere V76.44 Screening For Malig Kyle Prostate 790.21 Impaired Fasting Glucose 477.9 Rhinitis Allergic Cause Unspec Office Visit 01/14/2012 1:50p Main Office Paul Wen, 461.0 Sinusitis Acute M.D. Maxillary Office Visit 01/03/2012 9:40a Main Office Silvestre Alvarenga, 724.5 Backache Unspec M.D. 496 COPD Airway Obstruction Chronic Not Class Elsewhere Office Visit 10/23/2011 1:10p Main Office Paul Wen, 522.5 Periapical Abscess M.D. W/O Sinus Office Visit 12/28/2010 9:15a Main Office Paty Wing, 724.5 Backache Unspec Afnp-C Office Visit 12/07/2010 9:30a Main Office Paty Wing, 525.9 Teeth And Afnp-C Supporting Structures Disorders Unspec v04.81 Need For Prophylactic Vaccination & Inoculation/Influenza Office Visit 12/04/2010 1:40p [facility] Office Paul Wen, 787.91 Diarrhea M.D. 530.81 Esophageal Reflux 401.9 Hypertension Unspec 272.4 Hyperlipidemia Other Unspec Office Visit 07/25/2010 9:00a Main Office Paul Wen, 786.50 Pain Chest Unspec M.DZaida 723.4 Cervical Radiculopathy 530.81 Esophageal Reflux 716.90 Arthropathy Unspec Site Unspec Office Visit 06/11/2010 3:10p [facility] Paul Myers 786.50 Pain Chest Rubi Wen Unspec 723.4 Cervical Radiculopathy 530.81 Esophageal Reflux Office Visit 01/14/2010 10:00a [facility] Office Paul Myers V70.0 Examination Rubi Wen General Medical Routine AT [facility] 723.1 Cervicalgia 530.81 Esophageal Reflux V77.91 Screening For Lipoid Disorders V76.44 Screening For Malig Kyle Prostate V76.51 Screening For Malignant Neoplasms Colon 401.9 Hypertension Unspec 272.4 Hyperlipidemia Other Unspec 716.90 Arthropathy Unspec Site Unspec V06.5 Tetanus Diphtheria (DT) Office Visit 10/24/2009 3:00p [facility] Office Paul Myers 786.50 Pain Chest Rubi Wen Unspec Office Visit 09/20/2009 8:40a [facility] Office Silvestre Polk 473.1 Sinuschicho Alvarenga M.D. Chronic Frontal 388.30 Tinnitus Unspecified Office Visit 06/27/2008 10:40a [facility] Office Paul Wen, 473.1 Sinusitis Chronic M.DZaida Frontal 724.2 Lumbago 787.91 Diarrhea Office Visit 06/21/2008 9:10a [facility] Office Paul Myers 473.1 Sinusitis Rubi Wen Chronic Frontal 724.2 Lumbago 723.1 Cervicalgia 787.91 Diarrhea Office Visit 06/16/2008 11:00a [facility] Office Paty Wing, 527.9 Salivary Gland Afnp-C Disease Unspec Office Visit 05/08/2008 11:00a [facility] Office Paul Myers 724.2 Lumbago Rubi Wen 473.1 Sinusitis Chronic Frontal 719.46 Pain Joint Lower Leg Office Visit 04/05/2008 11:10a [facility] Miller A. Wen, M.D. 724.2 Lumbago 723.1 Cervicalgia Office Visit 01/19/2007 9:00a Main Office Stella Argenis, COBBLER SOLE 530.81 Esophageal Reflux V04.81 Need For Prophylactic Vaccination & Inoculation/Influenza Plan of Treatment Future Appointment(s):04/22/2018 11:00 am - Trisha Hare M.D. at Main [facility] - Yancy Mckeon, FNPM62.830 Muscle spasm of backM45.0 Ankylosing spondylitis of multiple sites in nsvhqF40.0 Primary generalized (osteo) jwgdtigomS42.2 DphofavwaasrQ15.20 Alcohol dependence, bazwytakeqvveN59.9 Anxiety disorder, gmpktvgdlvaP30.9 Chronic obstructive pulmonary disease, xgsmjwahlumT66.0 Tobacco useNew Xrays:CT Chest Low Dose, Ordered: AllComments:~B_~U_Medication Management~b_~u_ Patient Understands medications he 's taking? Yes No Are there Barriers to Adherence? Yes No Has the patient been asked about herbal supplements and therapies, and OTC meds ? Yes No As always, we strongly encourage a healthy diet and makingphysical activity a part of your every day life. If you have questions about how or where to start, please contact the office.
--- OUTSIDE RECORDS SUMMARY | 2018-04-15 19:15 | XMS REPORT | Continuity of Care Document ---
:1950 External Reference #:[id number] Author Name Pavan Parnell Care Team Providers Name Role Phone Trisha Hare MD Primary Care Physician Unavailable Payers Date Identification Numbers Payment Provider Subscriber Effective: 2011 Policy Number: [id number] [facility] Jil Jones PayID: [id number] [address] [address] [place] [address] Effective: 2008 Policy Number: [id number] Medicare Vlad Jones PayID: [id number] [address] [place] [address] Policy Number: [id number] [facility] Vlad Jones PayID: [id number] [address] [place] [address] Advance Directives Description No Information Available Problems Date Description Provider Status Onset: 03/17/2011 Benign essential hypertension Anu Kelly, N.P. Active Onset: 03/17/2011 Chest pain Anu Kelly NShital. Active Onset: 04/05/2015 Essential hypertension Vincent Gerber M.D. Active Onset: 09/20/2015 Ankylosing spondylitis Kai Herring MD Active Onset: 09/20/2015 Idiopathic peripheral neuropathy Kai Herring MD Active Onset: 01/08/2016 Sprain of shoulder and upper arm Malini Paredes MD Active Onset: 01/24/2016 Localized, primary osteoarthritis Malini Paredes MD Active of the shoulder region Onset: 09/17/2016 Dyspnea Irene Justice MD Active Onset: 09/17/2016 Chronic obstructive lung disease Irene Justice MD Active Onset: 09/17/2016 Difficulty breathing Irene Justice MD Active Onset: 09/17/2016 Encounter for screening for Irene Justice MD Active malignant neoplasm of respiratory organs Onset: 02/18/2018 Obstructive sleep apnea syndrome Irene Justice MD Active Family History Date Family Member(s) Observation Comments General Heart Disease General Diabetes General Cancer : (age 64 Father due to Cancer, Years) Lung : (age 77 Mother due to Cancer, possible issues with Years) Lung "heart fluttering." Siblings 3 First Sister Colon Cancer Paternal Grandmother Stroke Social History Type Date Description Comments Sex Unknown Marital Status Significant Other Lives With with significant other Occupation Retired Tobacco Use Start: Unknown End: Former Cigarette Smoker Unknown ETOH Use Currently consumes drinks alcohol 4-drinks(vodka) nightly, helps with pain Tobacco Use Start: Unknown 1 ppd x20yrs quit 1985 smoked cigars from 1003-3030 4-5 per week Recreational Drug Use Denies Drug Use Tobacco Use Start: Unknown End: Patient is a former Unknown smoker Smoking Status Reviewed: 04/01/18 Patient is a former smoker Exercise Type/Frequency Does not exercise rare because of joint/tendon problems Allergies, Adverse Reactions, Alerts Date Description Reaction Status Severity Comments 05/02/2010 Avelox Tendonitis, mood Active swings 06/26/2010 Quinolones Active mood swings 06/21/2014 Beta Adrenergic SOB, claudication Active Moderate Blockers 09/17/2016 Piperacillin Active rash, c-diff 02/25/2018 Tetracycline Active 02/25/2018 Sulfadiazine Active 04/01/2018 Flomax teeth aching Active Medications Medication Date Status Form Strength Qnty SIG Indications Ordering Provider Proair HFA 03/23/19 Active Aerosol 108(90Bas 8.500 1 puff Irene 19 e) gm every 6 MD Reshma mcg/Act hours as needed Levalbuterol 03/23/19 Active Nebulizer 0.31mg/3M 36ml 1 unit, Irene HCL 19 L Reshma vicente MD every 4 hours, as needed Cardizem CD 02/25/19 Active Caps ER 300mg 30cap 1 by I49.3 Celine S. 19 24HR s mouth Foster, every day N.P. Lisinopril 07/04/19 Active Tablets 10mg 90tab 1 by Qutaybeh 18 s mouth S. every day Rubi Gerber Cyanocobalamin 07/05/19 Active Tablets 2500mcg 90tab take one Raad 17 Sub s capsule/t patrick Wolf M.D. by mouth Ibuprofen 01/17/20 Active Tablets 400mg 60tab take one M45.0 Raad 16 s capsule/t Luciano, ablet by Rubi mouth twice daily as needed for pain, avoid other nsaids Skelaxin 01/17/20 Active Tablets 800mg 42tab take one M45.0 Raad 16 s tablet/ca Luciano psule by MAdam mouth at bedtime. as needed for spasms Pravachol Active Tablets 40mg 1 tablet Unknown 00 by mouth every night at bedtime Omeprazole Active Capsules 20mg [address] mouth every day Fluticasone Active Suspension 50mcg/Act 1 spray Unknown Propionate 00 each nostril daily Probiotic Active daily Unknown 00 Calcium/Magnesi Active Tablets 1 by Unknown um/Zinc/ 00 mouth four times a day Docusate Sodium Active Capsules 100mg 2tabs am Unknown 00 1tab pm as needed Lasix 02/26/19 Hx Tablets 20mg 10tab 1 by Celine Alvarado 19 - s mouth Kash 03/31/19 every day N.P. 19 or as directed by provider Sulfasalazine 08/04/19 Hx Tablets 500mg 60tab Take one M45.0 Raad 18 - s capsule/t Luciano, 02/12/20 patrick Venegas 18 daily by mouth for 1 week then 1 by mouth twice daily ongoing Proair HFA 07/07/19 Hx Aerosol 108(90Bas 25.5g 2 puffs Irene 18 - e) m by mouth MD Reshma Unknown mcg/Act every 4 hours as needed Symbicort 07/07/19 Hx Aerosol 80-4.5mcg 30.6g 1 puff Irene 18 - /Act m twice a MD Reshma 07/23/19 day 18 Ra Melatonin 12/23/19 Hx Tablets 5mg 30tab 1-2 G47.52 Irene 17 - s tablets MD Reshma 07/02/19 at bed 18 time Vitamin B12 10/08/19 Hx Tablet 90tab Dissolve Raad 2,500 mcg 17 - s 1 Tablet Luciano, 03/23/19 In Mouth M.D. 18 Once Daily Breo Ellipta 09/18/19 Hx Aerosol 100-25mcg 60uni 1 puff Irene 17 - /Inh ts inhaled MD Reshma 03/13/19 daily 19 Gabapentin 03/23/19 Hx Capsules 100mg 60cap Take 1 Raad 16 - s capsule Luciano, 04/05/19 by mouth M.DZaida 16 at night for 1 week then 1 by mouth twice daily ongoing Lidoderm 03/16/19 Hx Patches 5% 10uni apply 1 Jose 16 - ts patch to Waldemar 04/05/19 affected M.D. 16 area every daily for pain, leave on for 12 hours remove for 12 hours between applicati ons Nabumetone 03/14/19 Hx Tablets 500mg 30tab 1 tab by Jose 16 - s mouth Waldemar, 07/18/19 twice a M.D. 16 day as needed Cardizem CD 06/22/19 Hx Caps ER 120mg 60cap 2 tabs by [email or web address] Celine Alvarado 15 - 24HR s mouth Kash, 02/25/19 once a N.P. 19 day Atenolol 05/24/19 Hx Tablets 25mg 30tab 1 by Vincent 15 - s mouth SZaida 06/21/19 every day Arsenio Gerber M.D. Aspirin 03/26/[address] 81mg 1 tablet Micheline 13 - daily Kennedy, 08/17/19 D.O. 14 Diclofenac 07/10/[address] 75mg 60tab 1 tab by Donal Cardona DR 12 - s mouth tid Rubi Sinclair 08/17/19 x 1 week 14 then twice a day Enbrel 06/04/19 Hx Solution 50mg/ml 4unit 1 Donal madrigal subcutane Rubi Sinclair 08/29/19 ously 11 once weekly Indomethacin 05/03/19 Hx Capsules 25mg 120ca 2 bid Donal Shepard ps Rubi Sinclair 05/03/19 11 Diclofenac 05/03/[address] 75mg 60tab 1 by Donal Cardona 11 Drea s mikael Sinclair M.D. 01/08/20 twice a 11 day Hydrocodone/Rick Hx Tablets 5-500mg 90tab 1 tid prn Unknown taminophen 00 - s 06/27/19 11 Pravachol Hx Tablets 20mg 90tab 1 tablet Unknown 00 - s po qhs 08/18/19 14 Omeprazole Hx Capsules 20mg 30cap 1 po qd Unknown 00 - DR s 04/04/19 16 Advair Diskus Hx Aerosol 250-50 60uni 1 Unknown 00 - ts inhalatio 12/23/19 n twice 17 daily prn Albuterol Hx 1unit 2 puffs Unknown Inhaler 00 - s po qid 03/11/19 prn 15 Calcium 500/D Hx Tablets 500-200mg 1 po bid Unknown 00 - -Unit 06/27/19 11 Albuterol Hx Nebulizer (2.5mg/3M 120un 1 vial Unknown Sulfate 00 - L) 0.083% its via 03/11/19 nebulizer 15 q4-6hrs prn Ibuprofen Hx Tablets 800mg 90tab po tid Unknown 00 - s prn 06/27/19 11 Vicodin Hx Tablets 5-500mg 30tab 1-2 by Unknown 00 - s mouth 03/20/19 every 4-6 15 hours and needed for pain Super Calcium Hx Unknown - 08/18/19 14 Magnesium Hx Capsules 500mg 1 po qd Unknown - 06/27/19 11 L-Lysine Hx Capsules 500mg Unknown - 06/27/19 11 Metaxalone Hx Tablets 800mg 90tab take 1 Unknown 00 - s tablet 08/17/19 bid 14 Clindamycin HCL Hx Capsules 300mg 28cap 1 tab po Unknown 00 - s tid prn 08/17/19 for sinus 14 infection s Mucinex DM Hx Tablets ER 600mg 50tab 1 po prn Unknown 00 - 12HR s 08/17/19 14 Diclofenac Hx Tablets 50mg 90tab three Unknown Potassium 00 - s times 07/10/19 daily for 12 prn Biaxin XL Hx Tablets ER 500mg Unknown 00 - 24HR 08/17/19 14 Lisinopril Hx Tablets 20mg 90tab take 1/2 Qutaybeh 00 - s tablet by S. 07/03/19 mouth Maghaydah, 18 once M.D. daily Calcium Hx Tab 2 tab po Unknown Magnesium Zinc 00 - bid 08/12/19 18 Centrum Silver Hx Tablets 1 by Unknown 00 - mouth 03/21/19 every day 16 Probiotic Hx Capsules 14cap 1 cap po Unknown 00 - s daily 07/03/19 16 Motrin Hx Cap 800mg 1 tab po Unknown 00 - prn 03/23/19 16 Gabapentin Hx Capsules 100mg 90cap 1 po tid Unknown 00 - s prn 03/20/19 15 Cinnamon Hx Capsules 500mg 2 by Unknown 00 - mouth 03/11/19 every day 15 Potassium Hx Tablets 595mg 1 by Unknown Gluconate 00 - mouth 03/21/19 every day 16 Magnesium Oxide Hx Powder 1 tab Unknown 00 - daily 08/01/19 15 Metronidazole Hx Gel 0.75% apply at Unknown 00 - bedtime 07/18/19 to 16 affected areas Prednisone Hx Tablets 10mg Take 4 Unknown 00 - Tabs Once 05/22/19 Daily For 15 7 Days, 3 Tabs Daily For 7 Days, 2 Tab... Diazepam Hx Tablets 5mg take 1 Unknown 00 - tablet 08/01/19 three 15 times a day as Needed Hydrocodone-Rick Hx Tablets 5-325mg take 1 Unknown taminophen 00 - tablet 04/19/19 every 6 16 hours as Needed For Pain Doxycycline Hx Tablets DR 100mg 1 by Unknown Hyclate 00 - mouth 06/21/19 twice a 15 day Vitamin D3 Hx Capsules 1000Units 1 cap Unknown 00 - b.i.d 09/19/19 Am/PM 16 Diltiazem HCL Hx Caps ER 120mg Unknown ER Coated Beads 00 - 24HR 07/18/19 16 Hydrocodone-Rick Hx Tablets 5-325mg take 1 Unknown taminophen 00 - tablet 09/19/19 every 6 16 hours if needed (rare use) Fish Oil Hx Capsules 1000mg 2 by Unknown 00 - mouth 03/23/19 every day 18 Probiotic Hx Capsules 1 by Unknown 00 - mouth 12/16/19 every day 16 Vitamin B12 Hx Tablets ER 1000mcg 1 by Unknown 00 - mouth 09/17/19 every day 17 Fluorouracil Hx Cream 5% Apply A Unknown 00 - Thin 07/02/19 Layer To 18 Scaly Areas On Forehead, Temples And Cheeks... Diltiazem CD Hx 120 2 caps by Unknown 00 - mouth Unknown every day Vitamin B12 Hx Tablets 2 by Unknown 00 - mouth Unknown every day Linzess Hx Capsules 72mcg 1 by Unknown 00 - mouth 02/17/19 every day 19 Medications Administered in Office Medication Date Status Form Strength Qnty SIG Indications Ordering Provider Inj, Administered Injection Arturo Cabral Regadenoson, 015 Casey, 0.1 MG M.D., FACC, FASNC Inj, Administered Injection Qutaybeh S. Regadenoson, 015 Maghaydah, 0.1 MG M.D. Technetium TC Administered Injection Arturo Cabral 99M 015 Jacinto Tetrofosmin, M.D., FACC, Per Unit Dose FASNC Up To 40 Millicuries Technetium TC Administered Injection Qutaybeh S. 99M 015 Maghaydah, Tetrofosmin, M.D. Per Unit Dose Up To 40 Millicuries PPD Administered Injection Nurse Visit 011 RH Immunizations CPT Code Status Date Vaccine Lot # [id number] Given 11/20/2015 Influenza Virus 3Yrs & Over Vital Signs Date Vital Result Comment 04/01/2018 1:13pm Height 72.75 inches 6'0.75" Weight 201.12 lb with shoes Heart Rate 68 /min lt radial BP Systolic Sitting 140 mmHg lt arm, supine, reg cuff BP Diastolic Sitting 62 mmHg lt arm, supine, reg cuff BP Systolic Standing 135 mmHg lt arm, no dizziness standing up BP Diastolic Standing 68 mmHg lt arm, no dizziness standing up BMI (Body Mass Index) 26.7 kg/m2 Ejection Fraction 50-55% 03/04/18 02/25/2018 3:25pm Height 72.75 inches 6'0.75" Weight 202.00 lb with boots Heart Rate 60 /min BP Systolic Sitting 140 mmHg left arm BP Diastolic Sitting 82 mmHg left arm BMI (Body Mass Index) 26.8 kg/m2 Ejection Fraction 50-55% Echocardiogram 06/12/17 02/18/2018 12:00pm Height 72.75 inches 6'0.75" Weight 198.12 lb Heart Rate 68 /min BP Systolic Sitting 164 mmHg Lue reg cuff BP Diastolic Sitting 96 mmHg Lue reg cuff Respiratory Rate 16 /min O2 % BldC Oximetry 98 % On Ra BMI (Body Mass Index) 26.3 kg/m2 02/11/2018 1:49pm Height 72.75 inches 6'0.75" Weight 200.38 lb Heart Rate 65 /min BP Systolic Sitting 132 mmHg BP Diastolic Sitting 80 mmHg Pain Level 0 O2 % BldC Oximetry 98 % BMI (Body Mass Index) 26.6 kg/m2 10/08/2017 2:49pm Height 72.75 inches 6'0.75" Weight 185.12 lb Heart Rate 55 /min BP Systolic Sitting 122 mmHg BP Diastolic Sitting 66 mmHg Pain Level 3 O2 % BldC Oximetry 98 % BMI (Body Mass Index) 24.6 kg/m2 09/03/2017 9:25am Heart Rate 72 /min Respiratory Rate 18 /min Body Temperature 97.5 F 08/12/2017 11:43am Height 72.75 inches 6'0.75" Weight 185.50 lb w/sandals Heart Rate 64 /min BP Systolic Sitting 118 mmHg lue reg cuff BP Diastolic Sitting 66 mmHg lue reg cuff BMI (Body Mass Index) 24.6 kg/m2 Ejection Fraction 50-55% echo 06/12/2017 08/10/2017 10:26am Heart Rate 66 /min BP Systolic Sitting 144 mmHg BP Diastolic Sitting 88 mmHg Respiratory Rate 18 /min Body Temperature 97.7 F 08/03/2017 10:55am Height 72.75 inches 6'0.75" Weight 187.38 lb Heart Rate 61 /min BP Systolic Sitting 126 mmHg BP Diastolic Sitting 74 mmHg Respiratory Rate 14 /min Pain Level 5 BMI (Body Mass Index) 24.9 kg/m2 07/22/2017 9:08am Height 72.75 inches 6'0.75" Weight 194.38 lb Heart Rate 64 /min BP Systolic Sitting 122 mmHg Rue regular cuff BP Diastolic Sitting 78 mmHg Rue regular cuff Respiratory Rate 12 /min O2 % BldC Oximetry 97 % BMI (Body Mass Index) 25.8 kg/m2 07/02/2017 1:37pm Height 72.75 inches 6'0.75" Weight 195.00 lb w/ shoes Heart Rate 66 /min BP Systolic Sitting 132 mmHg lue rg cuff BP Diastolic Sitting 68 mmHg lue rg cuff BMI (Body Mass Index) 25.9 kg/m2 Ejection Fraction 50-55% echo 06/12/17 05/21/2017 11:10am Height 72.75 inches 6'0.75" Weight 199.00 lb w/ shoes Heart Rate 84 /min BP Systolic Sitting 134 mmHg L/A reg cuff BP Diastolic Sitting 68 mmHg L/A reg cuff Respiratory Rate 16 /min BMI (Body Mass Index) 26.4 kg/m2 Ejection Fraction 50-55% as of 08/28/16 echo 12/31/2016 1:14pm Height 72.75 inches 6'0.75" Weight 198.00 lb Heart Rate 50 /min BP Systolic Sitting 112 mmHg BP Diastolic Sitting 70 mmHg Respiratory Rate 16 /min Pain Level 4 BMI (Body Mass Index) 26.3 kg/m2 12/22/2016 12:49pm Height 72.75 inches 6'0.75" Weight 194.50 lb with shoes Heart Rate 54 /min BP Systolic Sitting 144 mmHg Lue reg cuff BP Diastolic Sitting 88 mmHg Lue reg cuff Respiratory Rate 14 /min O2 % BldC Oximetry 97 % On Ra BMI (Body Mass Index) 25.8 kg/m2 10/27/2016 10:51am Height 72.5 inches 6'0.50" Weight 189.38 lb Heart Rate 72 /min BP Systolic Sitting 128 mmHg BP Diastolic Sitting 72 mmHg Respiratory Rate 14 /min O2 % BldC Oximetry 98 % BMI (Body Mass Index) 25.3 kg/m2 09/17/2016 11:18am Height 72.5 inches 6'0.50" Weight 186.00 lb Heart Rate 52 /min BP Systolic Sitting 124 mmHg BP Diastolic Sitting 84 mmHg Respiratory Rate 16 /min O2 % BldC Oximetry 98 % room air BMI (Body Mass Index) 24.9 kg/m2 Neck Circumference in inches 16 08/28/2016 9:26am Height 72.5 inches 6'0.50" Weight 190.00 lb Heart Rate 81 /min BP Systolic 129 mmHg BP Diastolic 74 mmHg Body Temperature 97.2 F Pain Level 3 BMI (Body Mass Index) 25.4 kg/m2 08/26/2016 1:54pm Height 72.5 inches 6'0.50" Weight 190.00 lb without shoes Heart Rate 62 /min BP Systolic Sitting 140 mmHg Rue reg cuff BP Diastolic Sitting 88 mmHg Rue reg cuff Respiratory Rate 16 /min BMI (Body Mass Index) 25.4 kg/m2 Ejection Fraction 50-55% date 04/12/16 ECHO 07/02/2016 1:08pm Height 73 inches 6'1" Weight 195.00 lb Heart Rate 72 /min BP Systolic Sitting 150 mmHg BP Diastolic Sitting 84 mmHg Respiratory Rate 14 /min BMI (Body Mass Index) 25.7 kg/m2 01/24/2016 1:28pm Height 73 inches 6'1" Weight 195.00 lb Respiratory Rate 16 /min Pain Level 1 BMI (Body Mass Index) 25.7 kg/m2 01/17/2016 10:21am Height 73 inches 6'1" Weight 195.00 lb Heart Rate 72 /min BP Systolic Sitting 110 mmHg BP Diastolic Sitting 70 mmHg Respiratory Rate 14 /min Body Temperature 96.5 F Pain Level 3 BMI (Body Mass Index) 25.7 kg/m2 01/08/2016 9:21am Height 73 inches 6'1" Weight 185.00 lb Heart Rate 65 /min BP Systolic 132 mmHg BP Diastolic 72 mmHg BMI (Body Mass Index) 24.4 kg/m2 12/17/2015 1:05pm Height 73 inches 6'1" Weight 190.75 lb with shoes Heart Rate 62 /min BP Systolic Sitting 118 mmHg LA reg cuff BP Diastolic Sitting 78 mmHg LA reg cuff BMI (Body Mass Index) 25.2 kg/m2 Ejection Fraction 41% nlm 05/09/14 09/20/2015 8:25am Height 73 inches 6'1" Weight 188.00 lb Heart Rate 64 /min BP Systolic Sitting 124 mmHg BP Diastolic Sitting 80 mmHg Respiratory Rate 16 /min BMI (Body Mass Index) 24.8 kg/m2 08/01/2015 10:47am Height 73 inches 6'1" Weight 192.50 lb with shoes Heart Rate 68 /min BP Systolic 142 mmHg LA lrg cuff BP Diastolic 80 mmHg LA lrg cuff BMI (Body Mass Index) 25.4 kg/m2 Ejection Fraction 50%-55% echo 04/12/15 07/18/2015 1:43pm Height 73 inches 6'1" Weight 192.00 lb Heart Rate 68 /min BP Systolic Sitting 120 mmHg BP Diastolic Sitting 70 mmHg Body Temperature 97.7 F Pain Level 2 BMI (Body Mass Index) 25.3 kg/m2 07/04/2015 1:58pm Height 73 inches 6'1" Weight 195.00 lb Heart Rate 60 /min BP Systolic Sitting 118 mmHg LA, reg BP Diastolic Sitting 72 mmHg LA, reg BMI (Body Mass Index) 25.7 kg/m2 Ejection Fraction 50%-55% 04/12/14 06/21/2015 10:04am Height 73 inches 6'1" Weight 185.00 lb Heart Rate 75 /min BP Systolic 137 mmHg BP Diastolic 94 mmHg BMI (Body Mass Index) 24.4 kg/m2 04/19/2015 11:33am Height 72 inches 6'0" Weight 195.00 lb Heart Rate 56 /min BP Systolic Sitting 140 mmHg BP Diastolic Sitting 70 mmHg Body Temperature 97.3 F Pain Level 3 BMI (Body Mass Index) 26.4 kg/m2 04/05/2015 11:18am Height 72 inches 6'0" Weight 192.75 lb with shoes Heart Rate 84 /min BP Systolic Sitting 152 mmHg BP Diastolic Sitting 90 mmHg BMI (Body Mass Index) 26.1 kg/m2 Ejection Fraction 50-55% date 04/12/14 ECHO 03/21/2015 9:26am Height 72 inches 6'0" Weight 194.00 lb Heart Rate 72 /min BP Systolic Sitting 134 mmHg BP Diastolic Sitting 84 mmHg Body Temperature 97.7 F Pain Level 2 BMI (Body Mass Index) 26.3 kg/m2 03/14/2015 1:05pm Height 73 inches 6'1" Weight 185.00 lb Heart Rate 71 /min BP Systolic 149 mmHg BP Diastolic 80 mmHg BMI (Body Mass Index) 24.4 kg/m2 08/01/2014 10:58am Height 73 inches 6'1" Weight 192.75 lb w/ shoes Heart Rate 60 /min BP Systolic Sitting 118 mmHg LA, reg BP Diastolic Sitting 74 mmHg LA, reg BMI (Body Mass Index) 25.4 kg/m2 Ejection Fraction 50-55% 04/12/14 ECHO 06/21/2014 10:16am Height 73 inches 6'1" Weight 199.00 lb Heart Rate 72 /min BP Systolic 124 mmHg LA reg BP Diastolic 82 mmHg LA reg BMI (Body Mass Index) 26.3 kg/m2 Ejection Fraction 50-55% ECHO 04/12/14 05/23/2014 3:48pm Height 73 inches 6'1" Weight 199.00 lb Heart Rate 70 /min BP Systolic Sitting 130 mmHg LA, reg BP Diastolic Sitting 80 mmHg LA, reg BMI (Body Mass Index) 26.3 kg/m2 03/22/2014 9:54am Height 73 inches 6'1" Weight 196.00 lb Heart Rate 82 /min BP Systolic 134 mmHg LA reg BP Diastolic 82 mmHg LA reg BMI (Body Mass Index) 25.9 kg/m2 08/17/2013 9:17am Height 73 inches 6'1" Weight 185.00 lb Heart Rate 56 /min BP Systolic Sitting 118 mmHg BP Diastolic Sitting 74 mmHg Respiratory Rate 16 /min BMI (Body Mass Index) 24.4 kg/m2 03/26/2012 12:30pm Height 71 inches 5'11" Weight 190.00 lb Heart Rate 68 /min BP Systolic Sitting 124 mmHg BP Diastolic Sitting 84 mmHg BMI (Body Mass Index) 26.5 kg/m2 07/10/2011 10:54am Height 71 inches 5'11" Weight 188.00 lb Heart Rate 78 /min BP Systolic Sitting 123 mmHg BP Diastolic Sitting 71 mmHg BMI (Body Mass Index) 26.2 kg/m2 03/17/2011 10:51am Height 71 inches 5'11" Weight 183.00 lb Heart Rate 74 /min BP Systolic Sitting 122 mmHg BP Diastolic Sitting 84 mmHg BMI (Body Mass Index) 25.5 kg/m2 01/07/2011 10:45am Height 71 inches 5'11" Weight 188.00 lb Heart Rate 60 /min BP Systolic Sitting 124 mmHg BP Diastolic Sitting 78 mmHg BMI (Body Mass Index) 26.2 kg/m2 08/28/2010 2:18pm Height 71 inches 5'11" Weight 181.75 lb Heart Rate 58 /min BP Systolic Sitting 138 mmHg BP Diastolic Sitting 88 mmHg BMI (Body Mass Index) 25.3 kg/m2 07/11/2010 10:43am Weight 198.00 lb Heart Rate 80 /min BP Systolic 110 mmHg BP Diastolic 70 mmHg 06/26/2010 9:12am Weight 192.00 lb Heart Rate 56 /min BP Systolic Sitting 126 mmHg left arm, right arm 128/84 BP Diastolic Sitting 76 mmHg left arm, right arm 128/84 BP Systolic Standing 122 mmHg BP Diastolic Standing 72 mmHg BMI (Body Mass Index) 26.8 kg/m2 05/02/2010 2:18pm Height 71 inches 5'11" Weight 193.00 lb Heart Rate 80 /min BP Systolic 138 mmHg BP Diastolic 80 mmHg BMI (Body Mass Index) 26.9 kg/m2 Results Test Date Facility Test Result H/L Range Note Laboratory test 02/25/2018 [facility] Magnesium 2.3 mg/dL N 1.9-2.[address] [place] [address] [phone] TSH (Thyroid Stim Horm) 1.29 mcIU/mL N 0.34-5.60 B-Type Natriuretic Peptide BNP 271 pg/mL High <=100 Laboratory test 02/11/2018 [facility] C Reactive 2.62 mg/L N < 8.01 [address] [place] [address] [phone] Erythrocyte Sed Rate 8 mm/Hr N 0-40 2 CBC Auto Diff 02/11/2018 [facility] White Blood 5.7 10^3/uL N 3.5-10.[address] [place] [address] [phone] Red Blood Count 4.35 10^6/uL N 4.00-5.40 Hemoglobin 14.8 g/dL N 14.0-18.0 Hematocrit 43 % N 42-52 Mean Corpuscular Volume 99 fL High 80-94 Mean Corpuscular Hemoglobin 34 pg High 27-31 Mean Corpuscular HGB Conc 34 g/dL N 31-36 Red Cell Distribution Width 13 % N 10.5-15 Platelet Count 182 10^3/uL N 150-450 Mean Platelet Volume 7.4 fL N 7.4-10.4 Abs Neutrophils 3.3 10^3/uL N 1.5-7.7 Abs Lymphocytes 1.6 10^3/uL N 1.0-4.8 Abs Monocytes 0.4 10^3/uL N 0-0.8 Abs Eosinophils 0.4 10^3/uL N 0-0.6 Abs Basophils 0.1 10^3/uL N 0-0.2 Abs Nucleated RBC 0 10^3/uL Granulocyte % 56.9 % Lymphocyte % 28.2 % Monocyte % 7.3 % Eosinophil % 6.6 % Basophil % 1.0 % Nucleated Red Blood Cells % 0 Comp Metabolic Panel 02/11/2018 [facility] Sodium 139 mmol/L N 135-[address] [place] [address] [phone] Potassium 4.2 mmol/L N 3.5-5.0 Chloride 101 mmol/L N 101-111 Co2 Carbon Dioxide 32 mmol/L N 22-32 Anion Gap 6 mmol/L N 2-11 Glucose 93 mg/dL N 70-100 Blood Urea Nitrogen 14 mg/dL N 6-24 Creatinine 1.11 mg/dL N 0.67-1.17 BUN/Creatinine Ratio 12.6 N 8-20 Calcium 10.1 mg/dL N 8.6-10.3 Total Protein 6.7 g/dL N 6.4-8.9 Albumin 4.6 g/dL N 3.2-5.2 Globulin 2.1 g/dL N 2-4 Albumin/Globulin Ratio 2.2 N 1-3 Total Bilirubin 0.60 mg/dL N 0.2-1.0 Alkaline Phosphatase 37 U/L N 34-104 Alt 22 U/L N 7-52 Ast 19 U/L N 13-39 Egfr Non- 65.7 >60 Egfr 79.5 >60 3 Laboratory test 02/11/2018 [facility] Hemoglobin A1c 5.3 % N 4.0-5.[address] (Glyco HGB) [place] [address] [phone] Creatine Kinase(CK) 122 U/L N 10-223 5 Laboratory test 09/02/2017 [facility] Vitamin D, 55 pg/mL 18- [address] [place] [address] Dihydroxy [phone] Protein 09/02/2017 [facility] Total 6.9 g/dL 6.3 - 7.9 Electrophoresis [address](Pep) [place] [address] [phone] Albumin 3.4 g/dL 3.4-4.7 Alpha-1 Globulin 0.3 g/dL 0.1-0.3 Alpha-2 Globulin 1.0 g/dL 0.6-1.0 Beta Globulin 1.2 g/dL 0.7-1.2 Gamma Globulin 1.1 g/dL 0.6-1.6 Albumin/Globulin Ratio 0.97 Impression See Comment 7 Laboratory test 09/02/2017 [facility] TSH (Thyroid 2.08 N 0.34 -5.60 [address] Stim Horm) mcIU/[place] [address] [phone] Testosterone 09/02/2017 [facility] Testosterone 418 ng/dL 240 -950 [address] [place] [address] [phone] Free Testosterone ng/dl 7.94 ng/dL 3.47-13.0 10 Bioavailable Testosterone 59 ng/dL 40-168 11 Laboratory test 09/02/2017 [facility] PSA Diagnostic 2.333 N 0 -4.000 [address] ng/[place] [address] [phone] Laboratory test 08/03/2017 [facility] C Reactive < 1.00 N < 5.00 [address] Protein mg/[place] [address] [phone] Erythrocyte Sed Rate 4 mm/Hr N 0-40 CBC Auto Diff 08/03/2017 [facility] White Blood 5.3 10^3/uL N 3.5-10.[address] [place] [address] [phone] Red Blood Count 4.49 10^6/uL N 4.00-5.40 [...] Blood Cells % 0 Comp Metabolic Panel 08/03/2017 [facility] Sodium 138 mmol/L N 135-145 [address] [place] [address] [phone] Potassium 4.8 mmol/L N 3.5-5.0 Chloride 103 [...] Egfr Non- 72.4 >60 Egfr 93.1 >60 14 Laboratory test 06/18/2017 [facility] Magnesium 2.3 mg/dL N 1.9-2.7 finding [address] [place] [address] [phone] Comp Metabolic 06/18/2017 [facility] Sodium 139 mmol/L N 139- 145 Panel [address] [place] [address] [phone] Potassium 4.3 mmol/L N 3.5-5.0 Chloride 102 mmol/L N 101-111 Co2 Carbon Dioxide 29 mmol/L N 22-32 Anion Gap 8 mmol/L N 2-11 Glucose 99 mg/dL N 70-100 Blood Urea Nitrogen 15 mg/dL N 6-24 Creatinine 1.22 mg/dL High 0.67-1.17 BUN/Creatinine Ratio 12.3 N 8-20 Calcium 9.4 mg/dL N 8.6-10.3 Total Protein 6.7 g/dL N 6.4-8.9 Albumin 4.3 g/dL N 3.2-5.2 Globulin 2.4 g/dL N 2-4 Albumin/Globulin Ratio 1.8 N 1-3 Total Bilirubin 0.40 mg/dL N 0.2-1.0 Alkaline Phosphatase 35 U/L N 34-104 Alt 22 U/L N 7-52 Ast 19 U/L N 13-39 Egfr Non- 58.9 >60 Egfr 75.7 >60 15 Laboratory test 07/02/2016 [facility] Erythrocyte Sed 10 mm/Hr N 0-40 [address] [place] [address] [phone] Creatine Kinase(CK) 132 U/L N 10-223 17 Hepatitis 07/02/2016 [facility] Hepatitis C Nonreactive N Nonreactive 18 Acute Panel [address] [place] [address] [phone] Hepatitis A AB Igm Nonreactive N Nonreactive 19 Hepatitis B Core AB Igm Nonreactive N Nonreactive 20 Hepatitis B Surface Ag Nonreactive N Nonreactive 21 Laboratory test 07/02/2016 [facility] C Reactive 2.96 mg/L N < 5.00 [address] [place] [address] [phone] Vitamin B12 And 07/02/2016 [facility] Vitamin B12 323 pg/mL N 180-914 23 Folate Serum [address] [place] [address] [phone] Folic Acid (Folate) 12.58 ng/mL N >3.99 24 PSA Free And Total 07/02/2016 [facility] PSA Total 1.9 ng/mL N <=4.[address] [place] [address] [phone] PSA Free 0.3 ng/mL N PSA Free/Total See Comment ratio N 25 CBC Auto Diff 07/02/2016 [facility] White Blood 7.2 10^3/uL N 3.5-10.[address] [place] [address] [phone] Red Blood Count 4.31 10^6/uL N 4.0-5.4 Hemoglobin 13.9 g/dL Low 14.0-18.0 Hematocrit 42 % N 42-52 Mean Corpuscular Volume 98 fL High 80-94 Mean Corpuscular Hemoglobin 32 pg High 27-31 Mean Corpuscular HGB Conc 33 g/dL N 31-36 Red Cell Distribution Width 13 % N 10.5-15 Platelet Count 158 10^3/uL N 150-450 Mean Platelet Volume 8 um3 N 7.4-10.4 Abs Neutrophils 4.5 10^3/uL N 1.5-7.7 Abs Lymphocytes 2.1 10^3/uL N 1.0-4.8 Abs Monocytes 0.3 10^3/uL N 0-0.8 Abs Eosinophils 0.2 10^3/uL N 0-0.6 Abs Basophils 0 10^3/uL N 0-0.2 Abs Nucleated RBC 0 10^3/uL N Granulocyte % 62.7 % N 38-83 Lymphocyte % 29.6 % N 25-47 Monocyte % 4.0 % N 1-9 Eosinophil % 3.1 % N 0-6 Basophil % 0.6 % N 0-2 Nucleated Red Blood Cells % 0.1 N Comp Metabolic Panel 07/02/2016 [facility] Sodium 135 mmol/L N 133-[address] [place] [address] [phone] Potassium 4.4 mmol/L N 3.5-5.0 Chloride 99 mmol/L Low 101-111 Co2 Carbon Dioxide 29 mmol/L N 22-32 Anion Gap 7 mmol/L N 2-11 Glucose 86 mg/dL N 70-100 Blood Urea Nitrogen 18 mg/dL N 6-24 Creatinine 1.16 mg/dL N 0.67-1.17 BUN/Creatinine Ratio 15.5 N 8-20 Calcium 9.5 mg/dL N 8.6-10.3 Total Protein 6.7 g/dL N 6.4-8.9 Albumin 4.4 g/dL N 3.2-5.2 Globulin 2.3 g/dL N 2-4 Albumin/Globulin Ratio 1.9 N 1-3 Total Bilirubin 0.60 mg/dL N 0.2-1.0 Alkaline Phosphatase 40 U/L N 34-104 Alt 35 U/L N 7-52 Ast 23 U/L N 13-39 Egfr Non- 62.6 N >60 Egfr 80.5 N >60 26 Laboratory test 01/22/2016 [facility] C Reactive < 1.00 N < 5.00 [address] Protein mg/[place] [address] [phone] Erythrocyte Sed Rate 9 mm/Hr N 0-40 28 Vitamin B12 01/22/2016 [facility] Vitamin B12 1398 pg/mL High 180-914 29 And Folate [address] [place] [address] [phone] Folic Acid (Folate) 18.42 ng/mL N >3.99 30 CBC Auto Diff 01/22/2016 [facility] White Blood 6.4 10^3/uL N 3.5-10.[address] [place] [address] [phone] Red Blood Count 4.41 10^6/uL N 4.0-5.4 Hemoglobin 14.3 g/dL N 14.0-18.0 Hematocrit 43 % N 42-52 Mean Corpuscular Volume 98 fL High 80-94 Mean Corpuscular Hemoglobin 32 pg High 27-31 Mean Corpuscular HGB Conc 33 g/dL N 31-36 Red Cell Distribution Width 13 % N 10.5-15 Platelet Count 186 10^3/uL N 150-450 Mean Platelet Volume 8 um3 N 7.4-10.4 Abs Neutrophils 4.2 10^3/uL N 1.5-7.7 Abs Lymphocytes 1.4 10^3/uL N 1.0-4.8 Abs Monocytes 0.3 10^3/uL N 0-0.8 Abs Eosinophils 0.4 10^3/uL N 0-0.6 Abs Basophils 0.1 10^3/uL N 0-0.2 Abs Nucleated RBC 0 10^3/uL N Granulocyte % 65.7 % N 38-83 Lymphocyte % 21.6 % Low 25-47 Monocyte % 5.2 % N 1-9 Eosinophil % 6.6 % High 0-6 Basophil % 0.9 % N 0-2 Nucleated Red Blood Cells % 0 N Comp Metabolic Panel 01/22/2016 [facility] Sodium 137 mmol/L N 133-[address] [place] [address] [phone] Potassium 4.8 mmol/L N 3.5-5.0 Chloride 101 mmol/L N 101-111 Co2 Carbon Dioxide 32 mmol/L N 22-32 Anion Gap 4 mmol/L N 2-11 Glucose 100 mg/dL N 70-100 Blood Urea Nitrogen 12 mg/dL N 6-24 Creatinine 1.13 mg/dL N 0.67-1.17 BUN/Creatinine Ratio 10.6 N 8-20 Calcium 10.1 mg/dL N 8.6-10.3 Total Protein 6.9 g/dL N 6.4-8.9 Albumin 4.4 g/dL N 3.2-5.2 Globulin 2.5 g/dL N 2-4 Albumin/Globulin Ratio 1.8 N 1-3 Total Bilirubin 0.50 mg/dL N 0.2-1.0 Alkaline Phosphatase 34 U/L N 34-104 Alt 20 U/L N 7-52 Ast 16 U/L N 13-39 Egfr Non- 64.7 N >60 Egfr 83.2 N >60 31 Laboratory test 01/22/2016 [facility] Creatine 104 U/L N 10- [address] Kinase(CK) [place] [address] [phone] Laboratory test 09/20/2015 [facility] TSH (Thyroid 2.32 N 0.34 -5.[address] Stim Horm) mcIU/[place] [address] [phone] Vitamin B12 293 pg/mL N 180-914 34 Folic Acid (Folate) 7.67 ng/mL N >3.99 35 Protein 09/20/2015 [facility] Total 7.2 g/dL N 6.3 - Electrophoresis [address] Protein(Pep) 7.9 [place] [address] [phone] Albumin 3.7 g/dL N 3.4-4.7 Alpha-1 Globulin 0.3 g/dL N 0.1-0.3 Alpha-2 Globulin 1.1 g/dL Abnormal 0.6-1.0 Beta Globulin 1.1 g/dL N 0.7-1.2 Gamma Globulin 1.0 g/dL N 0.6-1.6 Albumin/Globulin Ratio 1.06 N Impression See Comment N 36 CBC Auto Diff 04/16/2015 [facility] White Blood 6.4 10^3/uL N 3.5-10.[address] [place] [address] [phone] Red Blood Count 4.35 10^6/uL N 4.0-5.4 Hemoglobin 14.0 g/dL N 14.0-18.0 Hematocrit 42 % N 42-52 Mean Corpuscular Volume 96 fL High 80-94 Mean Corpuscular Hemoglobin 32 pg High 27-31 Mean Corpuscular HGB Conc 33 g/dL N 31-36 Red Cell Distribution Width 14 % N 10.5-15 Platelet Count 202 10^3/uL N 150-450 Mean Platelet Volume 8 um3 N 7.4-10.4 Abs Neutrophils 3.6 10^3/uL N 1.5-7.7 Abs Lymphocytes 1.8 10^3/uL N 1.0-4.8 Abs Monocytes 0.4 10^3/uL N 0-0.8 Abs Eosinophils 0.5 10^3/uL N 0-0.6 Abs Basophils 0.1 10^3/uL N 0-0.2 Abs Nucleated RBC 0 10^3/uL N Granulocyte % 56.4 % N 38-83 Lymphocyte % 27.5 % N 25-47 Monocyte % 6.1 % N 1-9 Eosinophil % 8.5 % High 0-6 Basophil % 1.5 % N 0-2 Nucleated Red Blood Cells % 0.1 N Comp Metabolic Panel 04/16/2015 [facility] Sodium 136 mmol/L N 133-[address] [place] [address] [phone] Potassium 4.9 mmol/L N 3.5-5.0 Chloride 99 mmol/L Low 101-111 Co2 Carbon Dioxide 32 mmol/L N 22-32 Anion Gap 5 mmol/L N 2-11 Glucose 113 mg/dL High 70-100 Blood Urea Nitrogen 16 mg/dL N 6-24 Creatinine 1.12 mg/dL N 0.67-1.17 BUN/Creatinine Ratio 14.3 N 8-20 Calcium 9.8 mg/dL N 8.6-10.3 Total Protein 6.8 g/dL N 6.4-8.9 Albumin 4.4 g/dL N 3.2-5.2 Globulin 2.4 g/dL N 2-4 Albumin/Globulin Ratio 1.8 N 1-3 Total Bilirubin 0.40 mg/dL N 0.2-1.0 Alkaline Phosphatase 46 U/L N 34-104 Alt 26 U/L N 7-52 Ast 24 U/L N 13-39 Egfr Non- 65.6 N >60 Egfr 84.4 N >60 37 Laboratory test 04/16/2015 [facility] C Reactive 1.90 mg/L N < 5.[address] [place] [address] [phone] Erythrocyte Sed Rate 10 mm/Hr N 0-40 39 Laboratory test 08/01/2014 [facility] Troponin-I 0.01 ng/mL N <0.[address] (TnI) [place] [address] [phone] Neutrophil 03/22/2014 [facility] C-Anca Negative N Negative Cytoplasmic AB [address] [place] [address] [phone] P Anca Negative N Negative Anca Reviewed By MD Heraclio Kearney <SEE NOTE> N 41 Laboratory test 03/22/2014 [facility] Urszula (Anti-Nuclear Negative N Negative finding [address] AB) [place] [address] [phone] Lindsay Screen Negative N Negative 42 Comp Metabolic Panel 07/10/2011 [facility] Sodium 135 mmol/L 135-[address] [place] [address] [phone] Potassium 4.5 mmol/L 3.5-5.0 Chloride 104 mmol/L 101-111 Co2 (Carbon Dioxide) 29.0 mmol/L 22-32 Anion Gap 2.0 mmol/L 2-11 43 Glucose 107 mg/dL High 70-100 BUN 15 mg/dL 6-24 Creatinine 1.1 mg/dL 0.50-1.40 One Over Creatinine 0.90 BUN/Creatinine Ratio 13.6 8-20 Calcium 9.3 mg/dL 8.1-9.9 Total Protein 5.9 GM/DL Low 6.2-8.1 Albumin 4.2 GM/DL 3.2-5.2 Globulin 1.7 GM/DL Low 2-4 Albumin/Globulin Ratio 2.5 1-3 Bilirubin Total 1.1 mg/dL 0.4-1.5 44 Alkaline Phosphatase 30 U/L Low 39-117 Alt (SGPT) 44 U/L 17-63 Ast (Sgot) 31 U/L 12-42 eGFR Non- 67.6 > 60 eGFR 86.9 > 60 45 Laboratory test 07/10/2011 [facility] Erythrocyte Sed 8 MM/HR 0-[address] [place] [address] [phone] C Reactive Protein < 0.5 mg/dL Less Than 0.5 CBC Auto Diff 07/10/2011 [facility] White Blood 5.5 CUMM 4.8- 10.[address] [place] [address] [phone] Red Cell Count 3.82 CUMM Low 4.6-6.2 Hemoglobin 13.1 g/dL Low 14.0-18.0 Hematocrit 37 % Low 42-52 Mean Corpuscular Volume 97 um3 High 80-94 Mean Corpuscular Hemoglob 34 pg High 27-31 Mean Corpuscular HGB Cone 35 g/dL 32-36 Redcell Distribution WDTH 13 % 10.5-15 Platelet Count 198 CUMM 150-450 Mean Platelet Volume 8.3 um3 7.4-10.4 Gran % 55.4 % 38-83 Lymph % 28.7 % 25-47 Mononuclear % 5.6 % 1-9 Eosinophil % 9.6 % High 0-6 Basophil % 0.7 % 0-2 Abs Lymphs 1.6 1.0-4.8 Abs Mononuclear 0.3 0-0.8 Absolute Neutrophil Count 3.0 1.5-7.7 Abs Eosinophils 0.5 0-0.6 Abs Basophils 0 0-0.2 1 Please check labs today 2 Please check labs today 3 Because ethnic data is not always [...] 5 Kidney failure <15 (or dialysis) 4 Therapeutic target for the treatment of diabetes mellitus patients is <7% HBA1C, and in selective patients <6.0%. Please refer to [place] [employer] diabetic care guidelines for further information. 5 Please check labs today 6 ADDITIONAL INFORMATION This test was developed and its performance characteristics determined by [facility] in a manner consistent with CLIA requirements. This test has not been cleared or approved by the U.S. Food and Drug Administration. Test Performed by: [facility] [address] [place] [address] 7 RESULT: No apparent monoclonal protein on serum electrophoresis. Test Performed by: [facility] [address] [phone] [id number] Please check this week 9 ADDITIONAL INFORMATION Testing performed by Liquid Chromatography-Tandem Mass Spectrometry (LC-MS/MS). This test was developed and its performance characteristics determined by [facility] in a manner consistent with CLIA requirements. This test has not been cleared or approved by the U.S. Food and Drug Administration. 10 ADDITIONAL INFORMATION Testing performed by Equilibrium Dialysis. This test was developed and its performance characteristics determined by [facility] in a manner consistent with CLIA requirements. This test has not been cleared or approved by the U.S. Food and Drug Administration. 11 ADDITIONAL INFORMATION Testing performed by Differential Precipitation. This test was developed and its performance characteristics determined by [facility] in a manner consistent with CLIA requirements. This test has not been cleared or approved by the U.S. Food and Drug Administration. Test Performed by: [facility] [address] [place] [address] 12 Serum levels of PSA measured using the Naeem Mesha DXI Hybritech immunoassay should not be interpreted as absolute evidence of the presence or absence of disease. The PSA value should be used in conjunction with other pertinent clinical diagnostic procedures. The values obtained with different assay methods or kits cannot be used interchangeably. 13 Acute inflammation: >10.00 14 Because ethnic data is not always readily [...] 15-29 5 Kidney failure <15 (or dialysis) 15 Because ethnic data is not always readily [...] 15-29 5 Kidney failure <15 (or dialysis) 16 please check labs today 17 please check labs today 18 please check labs today 19 please check labs today 20 please check labs today 21 please check labs today 22 Acute inflammation: >10.00 23 Normal Range 180 to 914 Indeterminate Range 145 to 180 Deficient Range <145 24 please check labs today 25 Ratio not calculated because clinical usefulness is not defined except in range of total PSA 4.0-10.0 ng/mL. ADDITIONAL INFORMATION The testing method is an electrochemiluminescence assay manufactured by [employer] and performed on the Modular or Regino system. Values obtained with different assay methods or kits may be different and cannot be used interchangeably. Test results cannot be interpreted as absolute evidence for the presence or absence of malignant disease. Test Performed by: [place] [address] 26 Because ethnic data is not always readily [...] 15-29 5 Kidney failure <15 (or dialysis) 27 Acute inflammation: >10.00 28 Please check labs this month 29 Normal Range 180 to 914 Indeterminate Range 145 to 180 Deficient Range <145 30 Please check labs this month 31 Because ethnic data is not always readily [...] 15-29 5 Kidney failure <15 (or dialysis) 32 Please check labs this month 33 Copy Result to: TRISHA HARE ([id number]) 34 Normal Range 180 to 914 Indeterminate Range 145 to 180 Deficient Range <145 35 Copy Result to: TRISHA HARE ([id number]) 36 RESULT: No apparent monoclonal protein on serum electrophoresis. Test Performed by: [place] [address] Digital Account Coordinator: Mario Herring II, M.D., Ph.D. 37 Because ethnic data is not always readily [...] 15-29 5 Kidney failure <15 (or dialysis) 38 Acute inflammation: >10.00 39 PLEASE GET LABS DONE 2 DAY PRIOR TO NEXT OV( 04/19/15) AND STANDING ORDER Q 6 -8 WEEKS OR DIRECTED 40 Reference Range and Interpretation: TnI (ng/mL) Interpretation Less Than 0.03 ng/mL Not supportive of diagnosis of [place] 0.03 - 0.50 ng/mL Indeterminate: suggest serial studies if clinically indicated. Greater than 0.5 ng/mL Consistent with diagnosis of [place] 41 Heraclio Quinteros 42 The above LINDSAY screen is designed for the detection of antibodies to extractable nuclear antigen (LINDSAY) in human serum. It is a combination test for the detection of antibodies to BIAS MACHINE OPERATOR HELPER, Sm, SS-A (Ro), and SS-B (La) nuclear antigens. 43 Anion gap measurement may be of limited value in the presence of any alkalosis, especially in a combined acid base disorder. . 44 A metabolite of Naproxen, O-desmethylnaproxen, has been shown to interfere with the Jendrassik-Juliette method for measuring total bilirubin. Samples from patients who have taken Naproxen have shown spurious elevation in total bilirubin levels. 45 Because ethnic data is not always readily [...] 15-29 5 Kidney failure <15 (or dialysis) Procedures Date Code Description Status 04/01/2018 41815 EKG Tracing & Interpretation Completed 03/11/2018 73826 Holter Monitor Review (24 hr)dr review & interp only Completed 03/10/2018 39955 ECG Monitor/Recording W/Visual Superimposition Completed Scanning 03/10/2018 68598 ECG Monitor/Recording W/Visual Superimposition Completed Scanning 03/04/2018 57950 ECHO Transthoracic, Real-Time 2D With Doppler And Completed Color Flow 03/04/2018 12687 ECHO Transthoracic, Real-Time 2D With Doppler And Completed Color Flow 02/25/2018 13607 EKG Tracing & Interpretation Completed 08/12/2017 [id number] Bone Mineral Density Test Completed 07/28/2017 50123 Holter Monitor Review (24 hr)dr review & interp only Completed 07/27/2017 84463 ECG Monitor/Recording W/Visual Superimposition Completed Scanning 06/16/2017 88727 Holter Monitor Review (24 hr)dr review & interp only Completed 06/15/2017 92988 ECG Monitor/Recording W/Visual Superimposition Completed Scanning 06/12/2017 31576 ECHO Transthoracic, Real-Time 2D With Doppler And Completed Color Flow 06/12/2017 46600 ECHO Transthoracic, Real-Time 2D With Doppler And Completed Color Flow 05/21/2017 38174 EKG Tracing & Interpretation Completed 04/07/2017 41792 EKG, Interpretation Only Completed 04/07/2017 67771 Treadmill Interp/Report Only Completed 04/07/2017 93700 Stress Test Supervsn W/Out I/R Completed 10/13/2016 24279 Pulmonary Function><Bronchodil Completed 10/13/2016 53010 Pulmonary Stress Test Simple Completed 10/13/2016 83621 Plethysmography Determination Lung Volumes & Per Completed Airway Resist 10/13/2016 21007 Diffusing Capacity Completed 10/09/2016 97769 Sleep Study Unattended,HRT Rate,Oxygen Sat,Resp Completed Effort/Airflow 08/28/2016 58799 ECHO Transthoracic, Real-Time 2D With Doppler And Completed Color Flow 08/26/2016 88910 EKG Tracing & Interpretation Completed 12/17/2015 15254 EKG Tracing & Interpretation Completed 07/04/2015 30638 EKG Tracing & Interpretation Completed 04/05/2015 36404 EKG Tracing & Interpretation Completed 03/22/2015 [id number] Bone Mineral Density Test Completed 08/01/2014 48491 EKG Tracing & Interpretation Completed 05/09/2014 69853 Treadmill Interp/Report Only Completed 05/09/2014 04734 Stress Test Supervsn W/Out I/R Completed 05/09/2014 52465 Stress Test Completed 05/09/2014 94290 Myocardial Perfusion Imaging Tomographic (Spect) Completed Multiple Studies 05/09/2014 38513 Myocardial Perfusion Imaging Tomographic (Spect) Completed Multiple Studies 04/24/2014 14500 EKG Tracing & Interpretation Completed 04/12/2014 72995 ECHO Transthoracic, Real-Time 2D With Doppler And Completed Color Flow 04/10/2014 66317 Holter Monitor Review (24 hr)dr metz & interp only Completed 03/22/2014 43142 EKG Tracing & Interpretation Completed 03/26/2012 63934 EKG Tracing & Interpretation Completed 08/02/2010 05778 ECHO Transthoracic, Real-Time 2D With Doppler And Completed Color Flow 06/26/2010 20948 EKG Tracing & Interpretation Completed Encounters Type Date Location Provider Dx Diagnosis Office Visit 02/25/2018 [facility] Celine Hewitt, I47.1 Supraventricular 3:30p N.P. tachycardia I49.3 Ventricular premature depolarization R06.00 Dyspnea, unspecified Office Visit 02/18/2018 12:00p Pulmonology And Irene J44.9 [facility] Reshma obstructive Drum Drier pulmonary disease, unspecified G47.33 Obstructive sleep apnea (adult) (pediatric) G47.52 REM sleep behavior disorder Z12.2 Encntr screen for malignant neoplasm of respiratory organs Office Visit 02/11/2018 1:40p Rheumatology Raad Buckley5.0 [facility] Wolf M.D. spondylitis of multiple sites in spine Z79.899 Other terminal block assembler (current) drug therapy R73.9 Hyperglycemia, unspecified M47.817 Spondyls w/o myelopathy or radiculopathy, lumbosacr region Office Visit 10/08/2017 2:40p Rheumatology Raad Buckley5.0 [facility] Wolf M.D. spondylitis of multiple sites in spine M85.9 Disorder of bone density and structure, unspecified M47.817 Spondyls w/o myelopathy or radiculopathy, lumbosacr region M47.892 Other spondylosis, cervical region Z79.899 Other half-way (current) drug therapy R73.9 Hyperglycemia, unspecified Office Visit 09/03/2017 9:30a Surgical Eddie Orozco, R10.32 Left lower [facility] STRINGER, FACS quadrant pain Office Visit 08/12/2017 11:30a [facility] Celine Alvarado I47.2 Ventricular Foster, N.P. tachycardia R00.2 Palpitations I47.1 Supraventricular tachycardia I10 Essential (primary) hypertension Office Visit 08/10/2017 9:45a Surgical Eddie Orozco, R10.32 Left lower [facility] STRINGER, FACS quadrant pain R10.31 Right lower quadrant pain Office Visit 08/03/2017 10:40a Rheumatology Raad Buckley5.0 [facility] Wolf M.D. spondylitis of multiple sites in spine M54.5 Low back pain M25.552 Pain in left hip Z79.899 Other terminal block assembler (current) drug therapy Office Visit 07/22/2017 9:15a Pulmonology And Irene J44.9 [facility] Reshma obstructive Drum Drier pulmonary disease, unspecified G47.33 Obstructive sleep apnea (adult) (pediatric) G47.52 REM sleep behavior disorder Office Visit 07/02/2017 1:30p [facility] Celine SZaida I49.3 Ventricular Cardiology Kash, N.P. premature depolarization I47.2 Ventricular tachycardia R00.2 Palpitations I47.1 Supraventricular tachycardia I10 Essential (primary) hypertension G47.33 Obstructive sleep apnea (adult) (pediatric) Office Visit 05/21/2017 11:40a [facility] Vincent SZaida I10 Essential Rubi Gerber (primary) hypertension E78.5 Hyperlipidemia, unspecified R00.2 Palpitations F10.10 Alcohol abuse, uncomplicated G47.33 Obstructive sleep apnea (adult) (pediatric) R94.31 Abnormal electrocardiogram [ECG] [EKG] Office Visit 04/07/2017 10:44a [facility] Amadou R07.9 Chest pain, Assoc,alec Piña M.D. unspecified Hospitalists I10 Essential (primary) hypertension E78.5 Hyperlipidemia, unspecified F10.10 Alcohol abuse, uncomplicated Office Visit 04/06/2017 [facility] Theo R07.9 Chest pain, 10:43a Assoc,alec Stone N.PZaida unspecified Hospitalists I10 Essential (primary) hypertension E78.5 Hyperlipidemia, unspecified F10.10 Alcohol abuse, uncomplicated Office Visit 12/31/2016 1:20p Rheumatology Raad Dickinson [facility] Wolf M.D. spondylitis of multiple sites in spine E53.8 Deficiency of other specified B group vitamins M54.5 Low back pain Z79.1 termite treater (current) use of non-steroidal non-inflam (Nsaid) Office Visit 12/22/2016 1:00p Pulmonology And Irene J44.9 [facility] Reshma obstructive Drum Drier pulmonary disease, unspecified G47.33 Obstructive sleep apnea (adult) (pediatric) G47.52 REM sleep behavior disorder Office Visit 10/27/2016 10:45a Pulmonology And Irene J44.9 [facility] Res[facility] obstructive Drum Drier pulmonary disease, unspecified G47.33 Obstructive sleep apnea (adult) (pediatric) Office Visit 09/17/2016 10:45a Pulmonology And Irene J44.1 [facility] obstructive Drum Drier pulmonary disease w (acute) exacerbation R06.83 Snoring R40.0 Somnolence Z12.2 Encntr screen for malignant neoplasm of respiratory organs Office Visit 08/28/2016 9:30a Orthopedic Jose M45.0 Ankylosing Services Of Rubi Medeiros spondylitis of C.M.A. multiple sites in spine M25.571 Pain in right ankle and joints of right foot R06.02 Shortness of breath Office Visit 08/26/2016 2:20p [facility] Qutaybwanda SZaida R06.02 Shortness of Of Latha Gerber M.D. breath I10 Essential (primary) hypertension E78.4 Other hyperlipidemia E66.9 Obesity, unspecified I49.1 Atrial premature depolarization R94.31 Abnormal electrocardiogram [ECG] [EKG] Office Visit 07/02/2016 1:20p Rheumatology Raad Buckley5.0 [facility] Wolf M.D. spondylitis of multiple sites in spine G60.8 Other hereditary and idiopathic neuropathies E53.8 Deficiency of other specified B group vitamins Z79.899 Other terminal block assembler (current) drug therapy M54.5 Low back pain Office Visit 01/24/2016 1:45p Orthopedic Malini Paredes, S46.012A Strain of Services Of MD mcdonald/tend the C.M.A. rotator cuff of left shoulder, init S46.011A Strain of tamara/tend the rotator cuff of right shoulder, init M19.011 Primary osteoarthritis, right shoulder M19.012 Primary osteoarthritis, left shoulder Office Visit 01/17/2016 10:20a Rheumatology Raad Buckley5.0 [facility] Wolf M.D. spondylitis of multiple sites in spine G60.8 Other hereditary and idiopathic neuropathies E53.8 Deficiency of other specified B group vitamins Z79.899 Other half-way (current) drug therapy Office Visit 01/08/2016 9:30a Orthopedic Malini Paredes, S46.012A Strain of Services Of [facility] mcdonald/regla the C.M.A. rotator cuff of left shoulder, init S46.011A Strain of tamara/regla the rotator cuff of right shoulder, init Office Visit 12/17/2015 1:20p [facility] Qutaybwanda S. I10 Amalia Gerber M.D. (primary) hypertension E78.4 Other hyperlipidemia I49.3 Ventricular premature depolarization F10.20 Alcohol dependence, uncomplicated Office Visit 09/20/2015 Neurohospitalist Kai M45.0 Ankylosing 8:30a Clinic MD Nima spondylitis of multiple sites in spine G60.8 Other hereditary and idiopathic neuropathies Office Visit 08/01/2015 11:00a [facility] Heena Queen M45.0 Ankylosing PA spondylitis of multiple sites in spine R06.02 Shortness of breath I49.3 Ventricular premature depolarization R19.7 Diarrhea, unspecified Office Visit 07/18/2015 Rheumatology Raad Goodwin.81Rashel Spondyls w/o 1:40p Services Of Latha Wolf M.D. myelopathy or radiculopathy, lumbosacr region M45.0 Ankylosing spondylitis of multiple sites in spine M89.8x8 Other specified disorders of bone, other site M25.572 Pain in left ankle and joints of left foot R20.8 Other disturbances of skin sensation Office Visit 07/04/2015 2:00p [facility] Meshatamanuel S. I10 Amalia Gerber M.D. (primary) hypertension E78.4 Other hyperlipidemia R06.02 Shortness of breath Office Visit 06/21/2015 Orthopedic Jose Andrew81Rashel Spondyls w/o 10:00a Services Of Rubi Medeiros myelopathy or C.M.A. radiculopathy, lumbosacr region M79.672 Pain in left foot Office Visit 04/19/2015 Rheumatology Raad Andrew81Rashel Spondyls w/o 11:20a Services Of Latha Wolf M.D. myelopathy or radiculopathy, lumbosacr region M85.89 Oth disrd of bone density and structure, multiple sites M79.671 Pain in right foot Office Visit 04/05/2015 Teresa Kaur S. E78.4 Other 11:20a Cardiology Rubi Gerber hyperlipidemia I49.3 Ventricular premature depolarization I10 Essential (primary) hypertension Office Visit 03/21/2015 10:00a Rheumatology Raad M45.0 Ankylosing Services Of Latha Wolf M.D. 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 427.69 Premature Beats Rubi Gerber Other 401.1 Hypertension Benign 272.4 Hyperlipidemia Other Unspec Office Visit 04/24/2014 10:30a [facility] Meshataybeh S. 786.05 Shortness Of Rubi Gerber Breath 427.69 Premature Beats Other 401.1 Hypertension Benign 272.4 Hyperlipidemia Other Unspec Office Visit 03/22/2014 Teresa Mongeeh S. 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 Benign 786.59 Pain Chest Other Office Visit 01/07/2011 11:00a Rheumatology Donal Sinclair 720.0 Spondylitis Services Of Latha Venegas Ankylosing 721.0 Spondylosis Cervical W/O Myelopathy 721.3 Spondylosis Lumbar W/O Myelopathy Office Visit 08/28/2010 2:20p [facility] Micheline 786.59 Pain Chest Kennedy, D.O. Other 424.0 Mitral Valve Disorder 272.4 Hyperlipidemia Other Unspec Office Visit 07/11/2010 10:40a Rheumatology Donal Sinclair 721.3 Spondylosis Services Of Latha Venegas Lumbar W/O Myelopathy 721.0 Spondylosis Cervical W/O Myelopathy 721.90 Spondylosis Unspec Site W/O Myelopathy Office Visit 06/26/2010 9:40a [facility] Micheline 786.59 Pain Chest Kennedy, D.O. Other 272.4 Hyperlipidemia Other Unspec 785.2 Murmur Cardiac Undiagnosed Office Visit 05/02/2010 1:40p Rheumatology Donal Sinclair 720.0 Spondylitis Services Of Latha Venegas Ankylosing Plan of Treatment Future Appointment(s):08/30/2018 1:30 pm - Irene Justice MD at [facility]04/15/2018 2:20 pm - Raad Wolf M.D. at [facility]04/01/2018 - Vincent Gerber M.D.I49.3 Ventricular premature depolarizationFollow up:6 months ovI47.1 Supraventricular enehltpddgqD90.2 Thoracic aortic aneurysm, without hizsewxJ09.33 Obstructive sleep apnea (adult) (pediatric)
[2018-04-15] MEDS ORDERED: Aspirin 81 mg CHEW TAB* 81 MG TAB.CHEW PO ONE (19:24)
[2018-04-15] MEDS ORDERED: Nitroglycerin TAB 0.4 MG* 0.4 MG TAB SL ONE (19:24)
[2018-04-15 19:33] LABS: ABS Basophils 0.1 10^3/ul (0-0.2); ABS Eosinophils 0.2 10^3/ul (0-0.6); ABS Lymphocytes 1.8 10^3/ul (1.0-4.8); ABS Monocytes 0.4 10^3/ul (0-0.8); ABS Neutrophils 4.4 10^3/ul (1.5-7.7); ABS Nucleated RBC 0 10^3/ul; Eosinophil % 2.3 %; Hematocrit 46 % (42-52); Hemoglobin 15.4 g/dl (14.0-18.0); Lymphocyte % 26.7 %; Mean Corpuscular HGB Conc 34 g/dl (31-36); Mean Corpuscular Hemoglobin 33 pg (27-31); Mean Corpuscular Volume 98 fL (80-94); Mean Platelet Volume 7.6 fL (7.4-10.4); Nucleated Red Blood Cells % 0; Platelet Count 211 10^3/ul (150-450); Red Blood Count 4.66 10^6/ul (4.00-5.40); Red Cell Distribution Width 13 % (10.5-15); White Blood Count 6.9 10^3/ul (3.5-10.8)
[2018-04-15 19:51] LABS: Albumin 4.8 g/dL (3.2-5.2); Albumin/Globulin Ratio 1.8 (1-3); BUN/Creatinine Ratio 13.3 (8-20); EGFR African American 77.9 (>60); EGFR Non-African American 64.3 (>60); Globulin 2.6 g/dL (2-4); Potassium 4.4 mmol/L (3.5-5.0); Total Bilirubin 0.6 mg/dL (0.2-1.0); Total Protein 7.4 g/dL (6.4-8.9); Troponin I 0.01 ng/mL (<0.04)
[2018-04-15] MEDS ORDERED: Iohexol 350* (CONTRAST) 500 ML MDV IV ONE (19:53)
[2018-04-16] MEDS ORDERED: Albuterol 2.5 MG/3 ML NEB.SOL* (0.083%) INH PRN (01:02)
[2018-04-16] MEDS ORDERED: Acetaminophen TAB* 325 MG PO PRN (01:02)
[2018-04-16] MEDS ORDERED: Albuterol HFA INHALER* 8 gm MDI INH PRN (01:06)
[2018-04-16 01:35] LABS: Magnesium 2.3 mg/dL (1.9-2.7)
[2018-04-16 01:42] LABS: HDL Cholesterol 51.1 mg/dL
[2018-04-16 01:44] LABS: Troponin I 0.01 ng/mL (<0.04)
[2018-04-16 01:51] LABS: TSH (Thyroid Stimulating Horm) 2.73 mcIU/mL (0.34-5.60)
--- NOTE | 2018-04-16 05:50 | HP ---
CONTINUATION ADDENDUM NOW INCLUDED ON THIS REPORT CC: Dr. Gerber; Dr. Carolyn Hare. * HISTORY AND PHYSICAL: DATE OF ADMISSION: 04/16/18 PROVIDER: Sharee Ruth NP PRIMARY CARE PROVIDER: Dr. Carolyn Hare. ATTENDING PHYSICIAN WHILE IN THE HOSPITAL: Dr. Carmen Botello * (dictated by Sharee Ruth NP). CHIEF COMPLAINT: Chest pain. HISTORY OF PRESENT ILLNESS: Mr. Jones is a 67-year-old male with a past medical history significant for ventricular ectopy, COPD, hypertension, high cholesterol and arthritis, who presented to the emergency room with the complaint of chest pain on and off from 04/01/18. The patient reports that he had stress test in March 2017. At that time, it was low-risk nuclear stress. The patient reports today he is being followed by Dr. Gerber for his frequent PVCs and that they have been increasing his Cardizem. He reports that his Cardizem was last increased less than a week ago. The patient reports that he has had several episodes of chest pain. With the episodes of chest pain , he is unable to sleep at night. He reports the pain is worse when he moves or turns on his side that the pain will start again. He also reports that the pain gets worse with exertion. The patient reports that he saw Dr. Gerber on 04/01/18 and at that time, he had an EKG and echocardiogram and a Holter monitor and due to the increase in ventricular ectopy, he had his Cardizem increased to 360 mg. Patient also follows with Dr. Cedeño, an cryptologic technician operator/analyst at [place]. He reports that he saw him on 04/15/18 and he is scheduled for an ablation on 04/27/18. The patient reports that today he had a light pressure and tightness in his chest. He states the further he walked, he would get pain in his legs as well and the pain in his chest would become worse. He reports it as midsternal, radiating to the left side and at the worst with all these episodes, radiates across the whole chest. The patient does report pain down bilateral posterior arms when he has a chest pain. Patient does report that this has become progressively worse over the last few weeks. He does report today he became diaphoretic with his episode of chest pain and due to these reasons, he presented to the emergency room for further evaluation. While in the emergency room, the patient had chest pain. He was given nitro sublingual, which he says gave him complete relief of his chest pain. He does report that his chest pain is associated with exertion and becomes progressively worse with walking. It does subside with rest. The patient had routine lab work drawn. His troponins were negative x3. His EKG showed ventricular ectopy, trigeminy. Patient denies any fever or unintended weight loss. He does report chest pain that radiates to the left chest and pain down both arms associated with diaphoresis and increased leg pain. Patient denies any cough, hemoptysis, shortness of breath, nausea, vomiting or diarrhea. Denies any hematuria, dysuria, focal weakness or sensory loss. Denies any visual complaints, arthralgias, myalgias, rashes, lesions or open sores. Denies any psychosis or anxiety. PAST MEDICAL HISTORY: 1. Ventricular ectopy. 2. COPD. 3. Hypertension. 4. Hyperlipidemia. 5. Arthritis. PAST SURGICAL HISTORY: 1. Hernia repair. 2. L5-S1 discectomy. 3. Ulnar nerve surgery. 4. Sinus surgery x3. CONTINUATION ADDENDUM: PAST MEDICAL HISTORY: Includes: 1. Ankylosing spondylitis. 2. Basal cell carcinoma. HOME MEDICATIONS: 1. Vitamin B12 one tablet p.o. daily. 2. Probiotic 3 tabs p.o. daily. 3. Colace 300 mg p.o. daily. 4. Calcium, vitamin D, magnesium, zinc 3 tabs p.o. daily. 5. Albuterol HFA inhaler 1 to 2 puffs every 6 hours as needed. 6. Lisinopril 10 mg p.o. daily. 7. Ibuprofen 400 mg p.o. q.8 hours p.r.n. 8. Fluticasone/vilanterol. 9. Breo Ellipta inhaler 1 puff daily. 10. Diltiazem 360 mg p.o. daily. 11. Pravastatin 40 mg p.o. daily. 12. Omeprazole 20 mg p.o. daily. ALLERGIES: CLARITHROMYCIN, METRONIDAZOLE, AVELOX, ZOSYN, QUINOLONES, TETRACYCLINE, VANCOMYCIN, and eggplants. FAMILY HISTORY: Mother was a borderline diabetic. Father with a history of angina, at the age of 64. SOCIAL HISTORY: The patient is a former daily drinker. Reports that he quit drinking approximately 3 weeks ago. Quit smoking in 1985. Prior to that, he smoked a pack a day for approximately 20 years. Denies any illicit drug use. He is retired. Surrogate decision maker in the event he is unable to make his own decisions is his girlfriend, Caridad, her phone number is [phone]. He is a full code. REVIEW OF SYSTEMS: A 14-point review of systems is completed. All those pertinent positives are mentioned in the HPI, all others are negative. PHYSICAL EXAMINATION GENERAL: Mr. Jones is a 67-year-old male. He is alert and oriented, sitting on the stretcher in the emergency room. He is in no acute distress. VITAL SIGNS: Blood pressure is 144/83, heart rate 81, respirations are 14, O2 saturation 95%, temperature is 97.7. HEENT: Head is atraumatic, normocephalic. Eyes: EOMs are intact. Sclerae anicteric and not pale. Oral mucosa appeared to be moist. NECK: Supple. LUNGS: Clear to auscultation bilaterally. No wheezes, rales, or rhonchi. CARDIAC: S1, S2. Irregular rate and rhythm. ABDOMEN: Soft and nontender. Bowel sounds are present x4. EXTREMITIES: Pedal pulses are +1 bilaterally. He has no swelling, clubbing, or cyanosis noted to his extremities. NEUROLOGIC: He is awake, alert, oriented x3. Speech is clear. Thought process is intact. There are no gross focal deficits. SKIN: Intact. LABORATORY DATA AND DIAGNOSTIC STUDIES: WBCs are 6.9, RBCs 4.66, hemoglobin 15.4, hematocrit of 46, platelet count is 211. Sodium 140, potassium 4.4, chloride 104, carbon dioxide was 30, anion gap of 6, BUN was 15, creatinine 1.13 , glucose was 90, lactic acid 1.0, calcium 10.0, magnesium 2.3. Total bilirubin 0.60, AST was 16, ALT was 20, alkaline phosphatase was 34. Troponin was 0.01, then 0.00, then 0.01. Triglycerides were 78, cholesterol 147, LDL was 80, HDL was 51.1. TSH was 73. CTA of the chest, radiologist's impression: No evidence of aortic dissection or pulmonary embolism. There is a paraspinal mass noted adjacent to left T4 neural foramen, measuring approximately 2.4 x 1.7 cm. MRI may be performed for further evaluation. EKG showed sinus rhythm at a rate of 68 with frequent PVCs, trigeminy. ASSESSMENT AND PLAN: Mr. Jones is a 67-year-old male with a past medical history significant for chronic obstructive pulmonary disease, hypertension, high cholesterol, and arthritis, who presented to the emergency room with complaints of chest pain. He will be admitted under observation for: 1. Chest pain. We will bring him in to rule out acute coronary syndrome. We trended his troponins. He had 3 negative troponins. I will get a nuclear chemical stress test tomorrow. He did have a full-strength aspirin in the emergency room. We will continue his atorvastatin and Cardizem as previously prescribed. 2. Ventricular ectopy. We will continue on his Cardizem CD 360 mg p.o. daily. 3. Hypertension. We will continue on Prinivil 10 mg p.o. daily. 4. Chronic obstructive pulmonary disease. We will continue albuterol inhaler and nebulizers as needed for shortness of breath. The patient is not in active COPD exacerbation at this time. 5. Mass noted next to T4. I would recommend that the patient have further evaluation of a mass noted on CT near T4 neural foramen as an outpatient. I would recommend that the patient have an MRI. 6. FEN: He can have a heart heathy, no caffeine diet. 7. Code status: He is a full code. 8. DVT prophylaxis: I will place him on heparin subcu. TIME SPENT: Time spent on this admission was 60 minutes, greater than half that time was spent at the bedside reviewing events leading thus far to this hospitalization, performing my physical exam, and implementing my plan of care. I have discussed this with my attending Dr. Carmen Botello. She is in agreement with my plan. SHAREE RUTH, DIRECTOR PRODUCT SAFETY [id number]/CPS #: [id number] [id number]/CPS #: [id number] PATY
--- NOTE | 2018-04-16 06:48 | HP ---
HISTORY AND PHYSICAL: ADDENDUM: PAST MEDICAL HISTORY: Ankylosing spondylitis and basal cell carcinoma. HOME MEDICATIONS: 1. Vitamin B12 one tablet p.o. daily. 2. Probiotic 3 tabs p.o. daily. 3. Colace 300 mg p.o. daily. 4. Calcium, vitamin D, magnesium, zinc 3 tabs p.o. daily. 5. Albuterol HFA inhaler 1 to 2 puffs every 6 hours as needed. 6. Lisinopril 10 mg p.o. daily. 7. Ibuprofen 400 mg p.o. q.8 hours p.r.n. 8. Fluticasone/vilanterol. 9. Breo Ellipta inhaler 1 puff daily. 10. Diltiazem 360 mg p.o. daily. 11. Pravastatin 40 mg p.o. daily. 12. Omeprazole 20 mg p.o. daily. ALLERGIES: CLARITHROMYCIN, METRONIDAZOLE, AVELOX, ZOSYN, QUINOLONES, TETRACYCLINE, VANCOMYCIN, and eggplants. FAMILY HISTORY: Mother was a borderline diabetic. Father with a history of angina, at the age of 64. SOCIAL HISTORY: The patient is a former daily drinker. Reports that he quit drinking approximately 3 weeks ago. Quit smoking in 1985. Prior to that, he smoked a pack a day for approximately 20 years. Denies any illicit drug use. He is retired. Surrogate decision maker in the event he is unable to make his own decisions is his girlfriend, Caridad, her phone number is [phone]. He is a full code. REVIEW OF SYSTEMS: A 14-point review of systems is completed. All those pertinent positives are mentioned in the HPI, all others are negative. PHYSICAL EXAMINATION GENERAL: Mr. Jones is a 67-year-old male. He is alert and oriented, sitting on the stretcher in the emergency room. He is in no acute distress. VITAL SIGNS: Blood pressure is 144/83, heart rate 81, respirations are 14, O2 saturation 95%, temperature is 97.7. HEENT: Head is atraumatic, normocephalic. Eyes: EOMs are intact. Sclerae anicteric and not pale. Oral mucosa appeared to be moist. NECK: Supple. LUNGS: Clear to auscultation bilaterally. No wheezes, rales, or rhonchi. CARDIAC: S1, S2. Irregular rate and rhythm. ABDOMEN: Soft and nontender. Bowel sounds are present x4. EXTREMITIES: Pedal pulses are +1 bilaterally. He has no swelling, clubbing, or cyanosis noted to his extremities. NEUROLOGIC: He is awake, alert, oriented x3. Speech is clear. Thought process is intact. There are no gross focal deficits. SKIN: Intact. LABORATORY DATA AND DIAGNOSTIC STUDIES: WBCs are 6.9, RBCs 4.66, hemoglobin 15.4, hematocrit of 46, platelet count is 211. Sodium 140, potassium 4.4, chloride 104, carbon dioxide was 30, anion gap of 6, BUN was 15, creatinine 1.13 , glucose was 90, lactic acid 1.0, calcium 10.0, magnesium 2.3. Total bilirubin 0.60, AST was 16, ALT was 20, alkaline phosphatase was 34. Troponin was 0.01, then 0.00, then 0.01. Triglycerides were 78, cholesterol 147, LDL was 80, HDL was 51.1. TSH was 73. CTA of the chest, radiologist's impression: No evidence of aortic dissection or pulmonary embolism. There is a paraspinal mass noted adjacent to left T4 neural foramen, measuring approximately 2.4 x 1.7 cm. MRI may be performed for further evaluation. EKG showed sinus rhythm at a rate of 68 with frequent PVCs , trigeminy. ASSESSMENT AND PLAN: Mr. Jones is a 67-year-old male with a past medical history significant for chronic obstructive pulmonary disease, hypertension, high cholesterol, and arthritis, who presented to the emergency room with complaints of chest pain. He will be admitted under observation for: 1. Chest pain. We will bring him in to rule out acute coronary syndrome. We trended his troponins. He had 3 negative troponins. I will get a nuclear chemical stress test tomorrow. He did have a full-strength aspirin in the emergency room. We will continue his atorvastatin and Cardizem as previously prescribed. 2. Ventricular ectopy. We will continue on his Cardizem CD 360 mg p.o. daily. 3. Hypertension. We will continue on Prinivil 10 mg p.o. daily. 4. Chronic obstructive pulmonary disease. We will continue albuterol inhaler and nebulizers as needed for shortness of breath. The patient is not in active COPD exacerbation at this time. 5. Mass noted next to T4. I would recommend that the patient have further evaluation of a mass noted on CT near T4 neural foramen as an outpatient. I would recommend that the patient have an MRI. 6. FEN: He can have a heart heathy, no caffeine diet. 7. Code status: He is a full code. 8. DVT prophylaxis: I will place him on heparin subcu. TIME SPENT: Time spent on this admission was 60 minutes, greater than half that time was spent at the bedside reviewing events leading thus far to this hospitalization, performing my physical exam, and implementing my plan of care. I have discussed this with my attending Dr. Carmen Botello. She is in agreement with my plan. JONNY DE LA ROSA, FIELD MARKETING LEAD [id number]/CPS #: [id number] PATY
[2018-04-16] MEDS: Fluticasone/Vilanterol MDI(NF) 100/25 MDI INH SCH (07:13)
[2018-04-16] MEDS ORDERED: Regadenoson* 0.4 MG/5 ML SYRINGE ONE (10:37)
[2018-04-16] MEDS: Diltiazem CD CAP* 180 MG PO SCH (10:58)
[2018-04-16] MEDS: Docusate CAP* 100 MG PO SCH (12:25)
[2018-04-16] MEDS: Atorvastatin* 10 MG TAB PO SCH (12:25)
[2018-04-16] MEDS: Cyanocobalamin TAB* 500 MCG PO SCH (12:25)
[2018-04-16] MEDS: Lisinopril TAB* 10 MG PO SCH (12:25)
[2018-04-16] MEDS: Pantoprazole TAB * 40 MG TAB PO SCH (12:26)
[2018-04-16] MEDS: Heparin VIAL(*) 5000 UNITS/ML VIAL (FIVE THOUSAND) SUBCUT SCH ×2 (12:28→21:28)
[2018-04-16 15:56] LABS: Calcium 10.1 mg/dL (8.6-10.3); EGFR African American 73.3 (>60); EGFR Non-African American 60.6 (>60); Potassium 4.3 mmol/L (3.5-5.0)
--- NOTE | 2018-04-16 19:51 | PN ---
Subjective Date of Service: 04/16/18 Interval History: patient seen in the room post stress test. I explained to patient that the nuclear stress negative, however looking at his CTA chest scan from ED it did case picker incidentally a >2cm mass adjacent to T4 vertebral adjacent to the left neuroforaminal. On further questioning patient he expressed that his pain is only with prolonged walking and does affect his left upper back and across his chest wall. given the negative nuclear, I will pursue MRI of thoracic spine to rule out malignant lesion that could be causing radiculopathy pain referred to his chest. MRI ordered Past Medical History: Unchanged from Admission Objective Active Medications: Acetaminophen (Tylenol Tab*) 650 mg PO Q4H PRN PRN Reason: FEVER/PAIN Albuterol (Ventolin 2.5 Mg/3 Ml Neb.Tiff*) 2.5 mg INH RT.[id number] AWAKE PRN PRN Reason: sob/wheezing Albuterol (Ventolin Hfa Inhaler*) 2 puff INH Q6H PRN PRN Reason: SHORTNESS OF BREATH Atorvastatin Calcium (Lipitor*) 10 mg PO DAILY COUNT INCLUDES THE [facility]; Protocol Last Admin: 04/16/18 12:25 Dose: 10 mg Cyanocobalamin (Vitamin B12 Tab*) 500 mcg PO DAILY COUNT INCLUDES THE [facility] Last Admin: 04/16/18 12:25 Dose: 500 mcg Diltiazem HCl (Cardizem Cd Cap*) 360 mg PO DAILY COUNT INCLUDES THE [facility] Last Admin: 04/16/18 10:58 Dose: 360 mg Docusate Sodium (Colace Cap*) 300 mg PO DAILY COUNT INCLUDES THE [facility] Last Admin: 04/16/18 12:25 Dose: 300 mg Fluticasone/Vilanterol (Breo Ellipta Mdi 100/25(Nf)) 1 puff INH DAILY COUNT INCLUDES THE [facility] Last Admin: 04/16/18 07:13 Dose: Not Given Heparin Sodium (Porcine) (Heparin Vial(*)) 5,000 units SUBCUT Q12HR COUNT INCLUDES THE [facility] Last Admin: 04/16/18 12:28 Dose: 5,000 units Lisinopril (Prinivil Tab*) 10 mg PO DAILY COUNT INCLUDES THE [facility] Last Admin: 04/16/18 12:25 Dose: 10 mg Pantoprazole Sodium (Protonix Tab*) 20 mg PO DAILY COUNT INCLUDES THE [facility] Last Admin: 04/16/18 12:26 Dose: 20 mg Vital Signs - 8 hr 0304/16/18 04/16/18 12:19 12:41 15:21 Temperature 97.2 F 97.6 F Pulse Rate 38 81 61 Respiratory 16 16 Rate Blood Pressure 132/58 130/70 (mmHg) O2 Sat by Pulse 100 98 Oximetry Oxygen Devices in Use Now: None Appearance: Awake alert. no distress Eyes: No Scleral Icterus, PERRLA Ears/Nose/Mouth/Throat: NL Teeth, Lips, Gums, Clear Oropharnyx Neck: NL Appearance and Movements; NL JVP, Trachea Midline Respiratory: Symmetrical Chest Expansion and Respiratory Effort, Clear to Auscultation Cardiovascular: NL Sounds; No Murmurs; No JVD Abdominal: NL Sounds; No Tenderness; No Distention Neurological: Alert and Oriented x 3 Result Diagrams: 04/15/18 19:25 04/16/18 15:30 Assess/Plan/Problems-Billing Assessment: 67 year old male admitted for chest pain left sided and expressed left upper back pain - Patient Problems (1) Chest pain Current Visit: Yes Status: Acute Code(s): R07.9 - CHEST PAIN, UNSPECIFIED SNOMED Code(s): 37694680 Comment: - Nuclear stress test negative. his pain probably related to his T4 paraspinal lesion that could be impinging on his T4 nerve room causing radicular pain to his chest. - MRI of thoracic spine ordered (2) Paraspinal mass Current Visit: Yes Status: Acute Code(s): R22.2 - LOCALIZED SWELLING, MASS AND LUMP, TRUNK SNOMED Code(s): 917632588 Comment: - Nuclear stress test negative. his pain probably related to his T4 paraspinal lesion that could be impinging on his T4 nerve room causing radicular pain to his chest. - MRI of thoracic spine ordered (3) COPD (chronic obstructive pulmonary disease) Current Visit: Yes Status: Acute Code(s): J44.9 - CHRONIC OBSTRUCTIVE PULMONARY DISEASE, UNSPECIFIED SNOMED Code(s): 48775493 Comment: - albuterol PRN (4) Hypertension Current Visit: Yes Status: Acute Code(s): I10 - ESSENTIAL (PRIMARY) HYPERTENSION SNOMED Code(s): 97819793 Comment: - continue cardizem CD 360 mg daily (5) DVT prophylaxis Current Visit: Yes Status: Acute Code(s): [id number] - SNOMED Code(s): 381201796 Comment: heparin SQ
[2018-04-16] MEDS ORDERED: Gadoteridol* (CONTRAST) 279.3 MG/ML 10 ML IV ONE (19:57)
[2018-04-17] MEDS: Fluticasone/Vilanterol MDI(NF) 100/25 MDI INH SCH (08:14)
[2018-04-17] MEDS: Pantoprazole TAB * 40 MG TAB PO SCH (08:31)
[2018-04-17] MEDS: Cyanocobalamin TAB* 500 MCG PO SCH (08:32)
[2018-04-17] MEDS: Atorvastatin* 10 MG TAB PO SCH (08:32)
[2018-04-17] MEDS: Lisinopril TAB* 10 MG PO SCH (08:32)
[2018-04-17] MEDS: Diltiazem CD CAP* 180 MG PO SCH (08:32)
[2018-04-17] MEDS: Docusate CAP* 100 MG PO SCH (08:32)
[2018-04-17] MEDS: Heparin VIAL(*) 5000 UNITS/ML VIAL (FIVE THOUSAND) SUBCUT SCH (08:34)
[2018-04-17 12:14] VITALS: BP 119/57
--- NOTE | 2018-04-17 17:04 | PN ---
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 Patient has been symptomatic for several weeks.He describes radiating pain around the left side of his chest. He denies any cionsistent numbness or tingling in his legs but has complained of some leg pain with standing and walking.He does have an arrythmia for which he has been scheduled for an ablation procedure in [place] in the near future. 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 I discussed a referral to my associate Dr. Kamron Saunders at the [facility] for his experttise in peripheral nerve issues.This could be pursued as an outpatient. Discussed with Dr. Davis.
--- NOTE | 2018-04-17 20:21 | DS ---
CC: Dr. Gerber; Dr. Carolyn Hare; Dr. Quan Cedeño; Dr. Cid DISCHARGE SUMMARY: DATE OF ADMISSION: 04/16/18 DATE OF DISCHARGE: 04/17/18 CONSTRUCTION EQUIPMENT TECHNICIAN: Dr. Gerber. PRIMARY CARE PROVIDER: Dr. Carolyn Hare. MANAGER WORKERS COMPENSATION: Dr. Quan Cedeño. NEUROSURGERY: Dr. Cid. FINAL DISCHARGE DIAGNOSES: 1. Atypical chest pain secondary to T4 schwannoma. 2. T4 schwannoma, newly diagnosed. 3. Chronic obstructive pulmonary disease. 4. Hypertension. HOSPITAL COURSE: The patient presented to [facility] on 04/16/18 for ongoing intermittent chest pain left-sided, worsened with exertion, worsened with movement, worsened with prolonged standing. It has been going on for the past 2 to 3 weeks. At the same time, he is known to have ventricular ectopy. He follows with an rn disease management, Dr. Quan Cedeño and he follows up with a derrick worker well service, Dr. Gerber, as an outpatient. He was scheduled to have ablation by Dr. Cedeño for some increased cardiac arrhythmia. He only described it with ventricular ectopy, I do not have the formal diagnosis and which he is scheduled to see Dr. Cedeño. He is not in atrial fibrillation nor he is in any flutter, but I presume he may have some SVTs. However, this was postponed and he was sent to our facility to be evaluated for any coronary artery disease and was admitted for chest pain. He underwent a nuclear scan, which was done on 04/16/18. Ejection fraction was calculated 55% and there was no evidence by this Lexiscan of any reversible or perfusion defect and he was deemed to be very low risk. With this negative cardiac test, I did look further into his ER workup and he did have a CT scan of his chest on admission and his CT scan did reveal a positive lesion adjacent to the T4 on the left side of the neural foramina measuring about 2.4 x 1.7 cm. It did trigger a concern that it could be possible nerve sheath tumor and his chest pain that he is having could be a referred radiculopathy pain. I did follow up with an MRI of the thoracic spine, which did confirm the lesion at the T3-T4 level. 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 I did consult with Dr. Cid, Neurosurgery, who saw and evaluated the patient. He confirmed that probably it is a schwannoma that is causing his referred pain and he will be referring him to [facility] for further exploration with Neurosurgery. At this time, with negative workup from cardiac point of view and clearance from Neurosurgery, I did deem the patient stable for discharge with further outpatient followup at this time. PHYSICAL EXAM ON DISCHARGE: Vital Signs: Temperature 97, pulse 50 to 58, satting 100%, blood pressure 119/57. Generally, he is awake, alert, pleasant, in no apparent distress. Head and Neck: Normocephalic, atraumatic. Cardiovascular: S1, S2. Regular rate and rhythm. Abdomen: Positive bowel sounds. Soft, nontender, nondistended. Extremities: No pedal edema. ORCHESTRA DIRECTOR: There is no motor or janiya sensory deficit. His strength is 5/5 in upper and lower extremities. He does not have any palpable tenderness over the spine. He does not have any limited range of motion. No evidence of paresthesia at the time of my examination. INPATIENT DIAGNOSTIC STUDIES: As mentioned earlier, CT scan of the abdomen and chest in the emergency room, only significant finding at this time is his T4 thoracic vertebral lesion. He has spondylotic changes in the thoracic spine with central disk protrusion of T9 and T10 without significant central canal stenosis. 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 Nuclear medicine was negative with normal ejection fraction. No reversible ischemia. Chemistry: Troponins were negative x3. DISCHARGE MEDICATIONS: The patient was discharged on his home medications. 1. Albuterol inhaler as needed. 2. Multivitamin with calcium. 3. B12 500 mcg daily. 4. Diltiazem 360 daily. 5. Colace 300 mg daily. 6. Fluticasone/vilanterol 1 puff daily. 7. Ibuprofen as needed. 8. Lisinopril 10 daily. 9. Omeprazole 20 daily. 10. Pravastatin 40 mg daily. DISCHARGE RECOMMENDATIONS: 1. Follow up with his primary care in 1 to 2 weeks. 2. Follow up with Dr. Gerber as scheduled. 3. Follow up with Dr. Quan Cedeño as scheduled. 4. The patient to follow up with Neurosurgery in [place] at the instruction and direction from Dr. Cid's office. [id number]/[facility] #: [id number] PATY
== END 2018-04-17 16:31 | disposition home or self-care (01) ==
LOC: ED 18:39 → MEDTELE 04-16 01:02
PROVIDERS: ADMIT Internal Medicine; ATTEND Internal Medicine
DX: R07.89 Other chest pain (principal); R22.2 Localized swelling, mass and lump, trunk; J44.9 Chronic obstructive pulmonary disease, unspecified; I10 Essential (primary) hypertension
CPT/HCPCS: 36415; 71045; 71275; 72157; 74174; 78452; 80048; 80053; 80061; 83605; 83735; 84443; 84484; 85025; 93005; 93017; 96372; 99285; A9270-GY; A9502; A9579; G0378; J1644; J2785; Q9967

== ENCOUNTER 2023-03-03 08:16 | Observation (INO) ==
[~2023-03-03 08:16] MED LIST: HYDROmorphone 1 MG/1 ML SYRINGE IV PRN; Naloxone 0.4 mg VIAL 0.4 mg/ml 1 ml VIAL IV PRN; Ondansetron 4 mg VIAL 2 MG/ML 2 ml VIAL IV PRN; fentaNYL 100 mcg/2 ml 50 MCG/ML VIAL IV PRN
[2023-03-03 08:50] LABS: Rapid COVID-19 Molecular Undetected (Undetected)
[2023-03-03] MEDS ORDERED: Tranexamic Acid 1 GM/100ML BAG 2,000 MG/200 ML BAG IV ONE (09:00)
[2023-03-03] MEDS ORDERED: ceFAZolin 2 GM in NS PREMIX 2 GM/100 ML BAG IVPB ONE (09:00)
[2023-03-03] MEDS ORDERED: Midazolam 2 mg/2 ml VIAL 1 mg/ml 2 ml VIAL (2 mg) ONE ×2 (09:18→11:11)
[2023-03-03] MEDS ORDERED: Buffered Lidocaine 1% SYRIN 1 ml INTRADERM ONE (09:54)
[2023-03-03] MEDS ORDERED: Lactated Ringers 1000 ml BAG 1,000 ML IV SCH (10:00)
[2023-03-03] MEDS ORDERED: ROPIVACAINE 5 MG/ML 30 ML BTL (0.5%) ONE ×2 (10:32→10:52)
[2023-03-03] MEDS ORDERED: Bupivacaine-MPF SPINAL 7.5 MG/ML - 2ML AMP ONE (10:58)
[2023-03-03] MEDS ORDERED: Phenylephrine 40 mcg/mL 10mL (400mcg) SYRINGE ONE (11:32)
[2023-03-03] MEDS ORDERED: Ondansetron ODT 4 mg TAB 4 MG TAB PO PRN (11:36)
[2023-03-03] MEDS ORDERED: Magnesium Hydroxide LIQ 30 ML UDC PO PRN (11:36)
[2023-03-03] MEDS ORDERED: Ondansetron 4 mg VIAL 2 MG/ML 2 ml VIAL IV PRN (11:36)
[2023-03-03] MEDS ORDERED: Morphine 2 MG/ML SYRINGE IV PRN (11:36)
[2023-03-03] MEDS ORDERED: Lactulose 30 ml UDC PO PRN (11:36)
[2023-03-03] MEDS ORDERED: Propofol 10 MG/ML 20 ML BTL ONE (12:25)
[2023-03-03] MEDS: Lactated Ringers 1000 ml BAG 1,000 ML IV SCH (15:59)
[2023-03-03] MEDS: ceFAZolin 1 GM ADVAN 1 GM in NS 0.9% 50 ML 50 ML IVPB SCH (20:25)
[2023-03-03] MEDS ORDERED: CMCS:FLUTICAS/UMECLI/VILANT 100-62.5-25 MDI (NF) INH SCH (21:00)
[2023-03-03] MEDS: Magnesium Hydroxide LIQ 30 ML UDC PO SCH (21:41)
[2023-03-04] MEDS: Lactated Ringers 1000 ml BAG 1,000 ML IV SCH (02:11)
[2023-03-04] MEDS: ceFAZolin 1 GM ADVAN 1 GM in NS 0.9% 50 ML 50 ML IVPB SCH ×2 (04:58→10:55)
[2023-03-04 06:34] LABS: Platelet Count 168 10^3/uL (150-450)
[2023-03-04 06:51] LABS: Calcium 8.8 mg/dL (8.6-10.3); Creatinine, Serum 0.89 mg/dL (0.67-1.17); Potassium 4.6 mmol/L (3.5-5.0); eGFR CKD-EPI 89.9 (>60)
[2023-03-04 06:55] LABS: Hematocrit 40.6 % (38-53); Hemoglobin 13.8 g/dL (13.2-16.3); Mean Platelet Volume 7.2 fL (7.5-11.2)
[2023-03-04] MEDS ORDERED: Polyethylene Glycol 3350 17 GM PACKET PO SCH (09:00)
[2023-03-04] MEDS ORDERED: Vitamin THERAPEUTIC TAB PO SCH (09:00)
[2023-03-04] MEDS: Magnesium Hydroxide LIQ 30 ML UDC PO SCH (09:02)
[2023-03-04 10:03] VITALS: BP 111/71
== END 2023-03-04 12:27 | disposition home or self-care (01) ==
LOC: AA 08:16 → INTOOBSV 08:16 → SSU 15:37
PROVIDERS: ADMIT Orthopaedic Surgery Adult Reconstructive Orthopaedic Surgery; ATTEND Orthopaedic Surgery Adult Reconstructive Orthopaedic Surgery

== ENCOUNTER 2023-11-28 21:20 | Observation (INO) ==
[2023-11-29 00:52] LABS: ABS Eosinophils 0.1 10^3/uL (0.0-0.5); ABS Lymphocytes 1.5 10^3/uL (1.0-4.8); ABS Monocytes 0.9 10^3/uL (0.0-1.1); ABS Neutrophils 5.8 10^3/uL (1.5-7.6); Eosinophil % 1.8 %; Hematocrit 40.9 % (38-53); Hemoglobin 13.6 g/dL (13.2-16.3); Lymphocyte % 17.5 %; Mean Corpuscular Hemoglobin 30.8 pg (27-33); Mean Corpuscular Hgb Conc 33.3 g/dL (31-36); Mean Corpuscular Volume 92.5 fL (80-97); Mean Platelet Volume 7.9 fL (7.5-11.2); Platelet Count 228 10^3/uL (150-450); Red Blood Count 4.42 10^6/uL (4.06-5.63); Red Cell Distribution Width 16.4 % (12-17); White Blood Count 8.3 10^3/uL (3.6-10.2)
[2023-11-29 01:02] LABS: Albumin 4.4 g/dL (3.2-5.2); C Reactive Protein 4.31 mg/L (<8.01); Calcium 9.9 mg/dL (8.6-10.3); Creatinine, Serum 1.02 mg/dL (0.67-1.17); Globulin 2.2 g/dL (2-4); Potassium 4.4 mmol/L (3.5-5.0); Total Bilirubin 0.5 mg/dL (0.2-1.0); Total Protein 6.6 g/dL (6.4-8.9); eGFR CKD-EPI 76.6 (>60)
[2023-11-29 01:52] LABS: High Sensitivity Troponin 1 Hr 20 pg/mL (<20)
[2023-11-29] MEDS: Cefepime 2 GM in Dextrose 2 GM/50 ML BAG IV ONE (01:55)
[2023-11-29 01:57] LABS: Urine Appearance Clear; Urine Bilirubin Negative (Negative); Urine Blood Negative (Negative); Urine Color Light-Yellow; Urine Glucose 4+ (>=1000 mg/dL) (Negative); Urine Ketones Negative (Negative); Urine Nitrite Negative (Negative); Urine Protein Negative (Negative); Urine Specific Gravity 1.037 (1.002-1.030); Urine Urobilinogen Negative (Negative); Urine pH 5.5 (5.0-8.0)
[2023-11-29] MEDS ORDERED: Polyethylene Glycol 3350 17 GM PACKET PO PRN (05:12)
[2023-11-29] MEDS: Cholecalciferol (VIT D3) 1,000 unit TAB PO SCH (09:38)
[2023-11-29] MEDS: Fluticasone NASAL SPRAY 50MCG 16 gm SPRAY BTL INTRANASAL SCH (09:39)
[2023-11-29] MEDS: NF:BUDESONIDE/GLYCOPYR/FORMOTEROL MDI (NF) INH SCH (09:42)
[2023-11-29] MEDS: Albuterol 2.5mg/3 ml (0.083%) NEB.SOLN INH PRN (09:44)
[2023-11-29] MEDS: TOBRAMYCIN 300 MG/5 ML INH SCH (09:48)
[2023-11-29] MEDS ORDERED: Cefepime 2 GM in Dextrose 2 GM/50 ML BAG IV SCH (12:00)
[2023-11-29 13:17] VITALS: BP 121/68
[2023-11-29] MEDS ORDERED: Enoxaparin 40 MG/0.4 ML SYR SUBCUT SCH (21:00)
== END 2023-11-29 13:15 | disposition home or self-care (01) ==
LOC: ED 21:20 → EDHOLD 21:20 → SUATTDRO 11-29 04:06 → EDHOLD 11-29 13:14
PROVIDERS: ADMIT Student in an Organized Health Care Education/Training Program; ATTEND Internal Medicine